=== PATIENT | male | born 1950 | race Caucasian/White ===

== ENCOUNTER → 2016-08-27 | Outpatient (CLI) | payer MEDICARE ==
--- NOTE | 2016-08-27 09:41 | US ---
EXAMINATION TYPE: US carotid duplex BILAT DATE OF EXAM: 08/27/2016 8:37 AM COMPARISON: NONE CLINICAL HISTORY: I10 htn. EXAM MEASUREMENTS: RIGHT: Peak Systolic Velocity (PSV) cm/sec ----- Right CCA: 88.6 ----- Right ICA: 110.4 ----- Right ECA: 171.7 ICA/CCA ratio: 1.2 RIGHT: End Diastole cm/sec ----- Right CCA: 18.8 ----- Right ICA: 24.6 ----- Right ECA: 27.6 LEFT: Peak Systolic Velocity (PSV) cm/sec ----- Left CCA: 95.1 ----- Left ICA: 129.1 ----- Left ECA: 199.6 ICA/CCA ratio: 1.4 LEFT: End Diastole cm/sec ----- Left CCA: 20.8 ----- Left ICA: 14.4 ----- Left ECA: 27.6 VERTEBRALS (direction of flow): Right Vertebral: Antegrade Left Vertebral: Antegrade Moderate plaque noted bilateral bifurcations. Tortuous vessels noted. Slightly increased velocities l eft ICA. Increased velocities bilateral ECAs IMPRESSION: 1. Slightly elevated velocities within the left internal carotid artery suggesting stenosis of 50-69% . 2. No evidence of hemodynamically significant stenosis within the right carotid system.
--- NOTE | 2016-08-27 11:44 | ECHOS ---
DATE OF SERVICE: 08/27/2016 AGE: 66Y SEX: M HT: 69" WT: 260 lbs. Protocol [place]: X Others: Stress Echo Stage: 2 Dur. of Exercise: 4:15 *Heart Rate Blood Pressure *Rest: 72 Rest: 141/45 * *Max. Achieved: 130 Maximum BP: 234/73 85% PMHR: 130 100% PMHR: 153 *METS: 6.0 INDICATIONS: Hypertension. MEDICATIONS: Labetalol, losartan, amlodipine. Baseline EKG revealed normal sinus rhythm without significant ST-T changes. Patient walked for 4 minutes, 15 seconds, developed fatigue, shortness of breath and stress test was stopped. His maximal heart rate was about 132 beats per minute, which is 85% of predicted maximum. By the time the echo images were obtained, heart rate came to 122 beats per minute. Rare PVCs were noted. EKG did not reveal any ST segment changes to indicate ischemia and patient did not have angina. By EKG criteria, this is a negative stress test with limited exercise capacity. By the time echo images were obtained, heart rate was down to 122 beats per minute. However, there is no evidence to suggest any ischemia. There was good augmentation of left ventricular wall motion and wall thickening of all segments suggesting that there is no stress-induced ischemia on this study. FINAL IMPRESSION: 1. By EKG criteria, this is a negative stress test with limited exercise capacity. Patient did not have any angina. 2. By the time stress echo images were obtained, heart rate was down to 122 beats per minute; however, there is no evidence to suggest any ischemia on this stress echocardiogram.
== END | disposition home or self-care (01) ==
LOC: RADUSMAIN 08:09 → MERGE 08:20
PROVIDERS: ATTEND Family Medicine
DX: I10 Essential (primary) hypertension (principal)
CPT/HCPCS: 93017; 93350; 93880

== ENCOUNTER → 2018-04-10 | Outpatient (CLI) | payer MEDICARE ==
--- NOTE | 2018-04-10 11:45 | XR ---
EXAMINATION TYPE: XR Hip Bilateral Complete DATE OF EXAM: 04/10/2018 CLINICAL HISTORY: Bilateral hip pain. TECHNIQUE: AP and frogleg views of the bilateral hips are obtained. COMPARISON: None. FINDINGS: There is no acute fracture/dislocation evident in either hip. Symmetric mild axial joint s pace loss with mild to moderate acetabular spurring is present. Some spurring from greater trochante r level is present bilaterally. The overlying soft tissue appears unremarkable. Overlying zipper is p artially imaged. IMPRESSION: As above.
== END | disposition home or self-care (01) ==
LOC: RADXRMAIN 11:21
PROVIDERS: ATTEND Family Medicine
DX: M77.8 Other enthesopathies, not elsewhere classified (principal)
CPT/HCPCS: 73521

== ENCOUNTER 2018-07-12 18:56 | Emergency (ER) | payer MEDICARE ==
[2018-07-12] MEDS ORDERED: ALBUTEROL NEBULIZED 2.5 MG/3 ML INHALATION STA (19:22)
[2018-07-12] MEDS ORDERED: IPRATROPIUM 0.5 MG/2.5 ML NEBU INHALATION STA (19:22)
[2018-07-12] MEDS ORDERED: methylPREDNISolone SOD SUCCI 125 MG/2 ML VIAL IV STA (19:22)
--- NOTE | 2018-07-12 19:28 | ED ---
General Adult HPI - General Source: patient, RN notes reviewed Mode of arrival: ambulatory Limitations: no limitations <He Jones - Last Filed: 07/12/18 19:54> <He Harper - Last Filed: 07/12/18 22:16> - General Chief complaint: Shortness of Breath Stated complaint: Diff Breathing Time Seen by Provider: 07/12/18 19:00 - History of Present Illness Initial comments: This is a 68-year-old male presents emergency Department stating he has been having shortness of breath since earlier today per patient states the vacuum ceiling cleaner up a lot of dust in today earlier any brief a lot of and ever since then he's been having a hard time breathing. Patient states she can hear himself wheezing. Patient states he has no history of wheezing or COPD or congestive heart. Patient states 2 months ago he had bronchitis but he has been fine ever since took antibiotics. Patient denies any fever chills per patient denies palpitations. Patient denies any chest pain. Patient denies any abdominal pain. Patient denies any lightheadedness or dizziness. (He Jones) - Related Data Home Medications Medication Instructions Recorded Confirmed Dextroamphetamine/Amphetamine 30 mg PO DAILY PRN 07/12/18 07/12/18 [Adderall] Labetalol [Trandate] 100 mg PO BID 07/12/18 07/12/18 Losartan/Hydrochlorothiazide 1 tab PO DAILY 07/12/18 07/12/18 [Losartan-Hctz 100-25 mg Tab] amLODIPine [Norvasc] 5 mg PO DAILY 07/12/18 07/12/18 Allergies Allergy/AdvReac Type Severity Reaction Status Date / Time No Known Allergies Allergy Verified 07/12/18 19:40 Review of Systems ROS Other: All systems not noted in ROS Statement are negative. <He Jones - Last Filed: 07/12/18 19:54> ROS Other: All systems not noted in ROS Statement are negative. <He Harper - Last Filed: 07/12/18 22:16> ROS Statement: Those systems with pertinent positive or pertinent negative responses have been documented in the HPI. Past Medical History Past Medical History: Hypertension History of Any Multi-Drug Resistant Organisms: None Reported Past Surgical History: Prostate Surgery Additional Past Surgical History / Comment(s): knee replacement Past Psychological History: No Psychological Hx Reported Smoking Status: Never smoker Past Alcohol Use History: Occasional Past Drug Use History: Marijuana <He Jones - Last Filed: 07/12/18 19:54> General Exam Limitations: no limitations <He Jones - Last Filed: 07/12/18 19:54> General appearance: alert, in no apparent distress Head exam: Present: atraumatic, normocephalic, normal inspection Eye exam: Present: normal appearance, PERRL, EOMI. Absent: scleral icterus, conjunctival injection, periorbital swelling ENT exam: Present: normal exam, mucous membranes moist Neck exam: Present: normal inspection. Absent: tenderness, meningismus, lymphadenopathy Respiratory exam: Present: respiratory distress, wheezes. Absent: rales, rhonchi, stridor Cardiovascular Exam: Present: regular rate, normal rhythm, normal heart sounds. Absent: systolic murmur, diastolic murmur, rubs, gallop, clicks GI/Abdominal exam: Present: soft, normal bowel sounds. Absent: distended, tenderness, guarding, rebound, rigid Extremities exam: Present: normal inspection, full ROM, normal capillary refill. Absent: tenderness, pedal edema, joint swelling, calf tenderness Back exam: Present: normal inspection Neurological exam: Present: alert, oriented X3, CN II-XII intact Psychiatric exam: Present: normal affect, normal mood Skin exam: Present: warm, dry, intact, normal color. Absent: rash <He Harper - Last Filed: 07/12/18 22:16> - General Exam Comments Initial Comments: GENERAL: Patient is well-developed and well-nourished. Patient is nontoxic and well- hydrated and is in mild distress. ENT: Neck is soft and supple. No significant lymphadenopathy is noted. Oropharynx is clear. Moist mucous membranes. EYES: The sclera were anicteric and conjunctiva were pink and moist. Extraocular movements were intact and pupils were equal round and reactive to light. Eyelids were unremarkable. PULMONARY: Patient has expiratory wheezing. CARDIOVASCULAR: There is a regular rate and rhythm without any murmurs gallops or rubs. ABDOMEN: Soft and nontender with normal bowel sounds. SKIN: Skin is clear with no lesions or rashes and otherwise unremarkable. NEUROLOGIC: Patient is alert and oriented x3. Cranial nerves II through XII are grossly intact. Motor and sensory are also intact. Normal speech, volume and content. Symmetrical smile. MUSCULOSKELETAL: Normal extremities with adequate strength and full range of motion. No lower extremity swelling or edema. No calf tenderness. LYMPHATICS: No significant lymphadenopathy is noted PSYCHIATRIC: Normal psychiatric evaluation. (He Jones) Course Vital Signs 07/12/18 07/12/18 07/12/18 19:01 19:18 19:58 Temperature 98.5 F Pulse Rate 91 92 Respiratory 18 20 Rate Blood Pressure 186/76 O2 Sat by Pulse 94 L Oximetry 07/12/18 07/12/18 07/12/18 20:15 21:18 21:41 Temperature 98.3 F Pulse Rate 92 94 87 Respiratory 18 Rate Blood Pressure 160/87 O2 Sat by Pulse 98 Oximetry Medical Decision Making - Lab Data Result diagrams: 07/12/18 19:33 <He Jones - Last Filed: 07/12/18 19:54> - Lab Data Result diagrams: 07/12/18 19:33 07/12/18 19:33 - Radiology Data Radiology results: report reviewed (CXR is negative for acute disease), image reviewed <He Harper - Last Filed: 07/12/18 22:16> - Medical Decision Making EKG shows sinus rhythm at 84 bpm PA interval is 214 QRS is 94 QT interval [address] Harper take over the care of this patient at 8 PM (He Jones) 68 male to the ED for bronchospasm cutrrently in no distress and would like to be discharged home. (He Harper) - Lab Data Lab Results 07/12/18 07/12/18 07/12/18 Range/Units 19:33 19:33 19:33 WBC 7.0 (3.8-10.6) k/uL RBC 4.94 (4.30-5.90) m/uL Hgb 13.7 (13.0-17.5) gm/dL Hct 42.1 (39.0-53.0) % MCV 85.2 (80.0-100.0) fL MCH 27.8 (25.0-35.0) pg MCHC 32.6 (31.0-37.0) g/dL RDW 14.5 (11.5-15.5) % Plt Count 243 (150-450) k/uL Neutrophils % 59 % Lymphocytes % 20 % Monocytes % 6 % Eosinophils % 12 % Basophils % 1 % Neutrophils # 4.1 (1.3-7.7) k/uL Lymphocytes # 1.4 (1.0-4.8) k/uL Monocytes # 0.4 (0-1.0) k/uL Eosinophils # 0.9 H (0-0.7) k/uL Basophils # 0.1 (0-0.2) k/uL PT 9.8 (9.0-12.0) sec INR 0.9 (<1.2) APTT 26.8 (22.0-30.0) sec Sodium 139 (137-145) mmol/L Potassium 4.0 (3.5-5.1) mmol/L Chloride 100 (98-107) mmol/L Carbon Dioxide 29 (22-30) mmol/L Anion Gap 10 mmol/L BUN 15 (9-20) mg/dL Creatinine 0.86 (0.66-1.25) mg/dL Est GFR (CKD-EPI)AfAm >90 (>60 ml/min/1.73 sqM) Est GFR (CKD-EPI)NonAf 89 (>60 ml/min/1.73 sqM) Glucose 108 H (74-99) mg/dL Calcium 9.8 (8.4-10.2) mg/dL Magnesium 2.2 (1.6-2.3) mg/dL Total Bilirubin 0.7 (0.2-1.3) mg/dL AST 28 (17-59) U/L ALT 43 (21-72) U/L Alkaline Phosphatase 88 (38-126) U/L Troponin I (0.000-0.034) ng/mL Total Protein 7.5 (6.3-8.2) g/dL Albumin 4.7 (3.5-5.0) g/dL 07/12/18 Range/Units 19:33 WBC (3.8-10.6) k/uL RBC (4.30-5.90) m/uL Hgb (13.0-17.5) gm/dL Hct (39.0-53.0) % MCV (80.0-100.0) fL MCH (25.0-35.0) pg MCHC (31.0-37.0) g/dL RDW (11.5-15.5) % Plt Count (150-450) k/uL Neutrophils % % Lymphocytes % % Monocytes % % Eosinophils % % Basophils % % Neutrophils # (1.3-7.7) k/uL Lymphocytes # (1.0-4.8) k/uL Monocytes # (0-1.0) k/uL Eosinophils # (0-0.7) k/uL Basophils # (0-0.2) k/uL PT (9.0-12.0) sec INR (<1.2) APTT (22.0-30.0) sec Sodium (137-145) mmol/L Potassium (3.5-5.1) mmol/L Chloride (98-107) mmol/L Carbon Dioxide (22-30) mmol/L Anion Gap mmol/L BUN (9-20) mg/dL Creatinine (0.66-1.25) mg/dL Est GFR (CKD-EPI)AfAm (>60 ml/min/1.73 sqM) Est GFR (CKD-EPI)NonAf (>60 ml/min/1.73 sqM) Glucose (74-99) mg/dL Calcium (8.4-10.2) mg/dL Magnesium (1.6-2.3) mg/dL Total Bilirubin (0.2-1.3) mg/dL AST (17-59) U/L ALT (21-72) U/L Alkaline Phosphatase (38-126) U/L Troponin I <0.012 (0.000-0.034) ng/mL Total Protein (6.3-8.2) g/dL Albumin (3.5-5.0) g/dL Disposition <He Jones - Last Filed: 07/12/18 19:54> Is patient prescribed a controlled substance at d/c from ED?: No <He Harper - Last Filed: 07/12/18 22:16> Clinical Impression: Acute bronchospasm Disposition: HOME SELF-CARE Condition: Good Instructions (If sedation given, give patient instructions): Bronchospasm (ED) Referrals: Brandon Linares DO [Primary Care Provider] - 1-2 days
[2018-07-12 19:46] LABS: Basophils # (A) 0.1 k/uL (0-0.2); Basophils % (A) 1 %; Eosinophils # (A) 0.9 k/uL (0-0.7); Eosinophils % (A) 12 %; HCT 42.1 % (39.0-53.0); HGB 13.7 gm/dL (13.0-17.5); Lymphocytes # (A) 1.4 k/uL (1.0-4.8); Lymphocytes % (A) 20 %; MCH 27.8 pg (25.0-35.0); MCHC 32.6 g/dL (31.0-37.0); MCV 85.2 fL (80.0-100.0); Mean Platelet Volume 6.9; Monocytes # (A) 0.4 k/uL (0-1.0); Monocytes % (A) 6 %; Neutrophils # (A) 4.1 k/uL (1.3-7.7); Neutrophils % (A) 59 %; Platelet Count 243 k/uL (150-450); RBC 4.94 m/uL (4.30-5.90); RDW 14.5 % (11.5-15.5)
[2018-07-12 19:55] LABS: ALT 43 U/L (21-72); AST 28 U/L (17-59); Albumin 4.7 g/dL (3.5-5.0); Alkaline Phosphatase 88 U/L (38-126); Anion Gap 10 mmol/L; Blood Urea Nitrogen 15 mg/dL (9-20); Calcium 9.8 mg/dL (8.4-10.2); Carbon Dioxide 29 mmol/L (22-30); Chloride 100 mmol/L (98-107); Glucose 108 mg/dL (74-99); Magnesium 2.2 mg/dL (1.6-2.3); Sodium 139 mmol/L (137-145); Total Bilirubin 0.7 mg/dL (0.2-1.3); Total Protein 7.5 g/dL (6.3-8.2)
[2018-07-12 19:56] LABS: INR 0.9 (<1.2); Partial Thromboplastin Time 26.8 sec (22.0-30.0); Prothrombin Time 9.8 sec (9.0-12.0)
--- NOTE | 2018-07-12 20:33 | XR ---
EXAMINATION TYPE: XR chest 2V DATE OF EXAM: 07/12/2018 COMPARISON: NONE HISTORY: Short of breath TECHNIQUE: Frontal and lateral views of the chest are obtained. FINDINGS: Heart and mediastinum are normal. Lungs are clear of consolidation. There is slight blunti ng of left costophrenic angle. There are no hilar masses. Bony thorax is intact. IMPRESSION: There is some linear density at the left costophrenic angle consistent with subsegmental atelectasis and pleural reaction.
[2018-07-12] MEDS ORDERED: IPRATROPIUM-ALBUTEROL 3 ML NEB INHALATION STA (20:58)
[2018-07-12 21:42] VITALS: BP 160/87; PULSE 87; RESP 18; TEMP 98.3
== END 2018-07-12 21:42 | disposition home or self-care (01) ==
LOC: EC 18:56
DX: J98.01 Acute bronchospasm (principal); I10 Essential (primary) hypertension; Z79.899 Other long term (current) drug therapy; Z96.659 Presence of unspecified artificial knee joint
CPT/HCPCS: 36415; 71046; 80053; 83735; 84484; 85025; 85610; 85730; 93005; 94640; 96374; 99285

== ENCOUNTER → 2019-05-24 | Outpatient (CLI) | payer MEDICARE ==
--- NOTE | 2019-05-24 12:10 | XR ---
EXAMINATION TYPE: XR lumbar spine 2 or 3V DATE OF EXAM: 05/24/2019 CLINICAL HISTORY: Lumbar pain and sciatica TECHNIQUE: Frontal and lateral images of the lumbar spine are obtained. COMPARISON: None FINDINGS: There are 5 lumbar type vertebral bodies assume bilateral accessory L1 ribs. There is levo convex scoliosis centered at L3 level. There is slight grade 1 anterolisthesis L3 on L4 and grade 1 r etrolisthesis L4 on L5. Moderate to advanced disc space narrowing with moderate anterior spurring L4- L5 level. Advanced disc space narrowing and anterior spurring L5-S1 level. Moderate right lateral spu rring L3 level. Oblique images suboptimal due to underlying scoliosis. Vascular opacification overlyi ng abdominal aorta is present. Facet arthropathy mid to lower lumbar spine is noted. IMPRESSION: As above
== END | disposition home or self-care (01) ==
LOC: RADXRMAIN 11:01
PROVIDERS: ATTEND Family Medicine
DX: M99.73 Connective tissue and disc stenosis of intervertebral foramina of lumbar region (principal); M43.16 Spondylolisthesis, lumbar region; M46.96 Unspecified inflammatory spondylopathy, lumbar region; M41.86 Other forms of scoliosis, lumbar region
CPT/HCPCS: 72100

== ENCOUNTER → 2019-11-30 | Outpatient (CLI) | payer MEDICARE ==
--- NOTE | 2019-11-30 14:23 | US ---
EXAMINATION TYPE: US venous doppler duplex LE DATE OF EXAM: 11/30/2019 1:27 PM COMPARISON: NONE CLINICAL HISTORY: PAD I73.9. Bilateral ankle swelling is noted. Patient stated right foot coldness, b ut feels warm and equal to left foot temperature. SIDE PERFORMED: Bilateral TECHNIQUE: The lower extremity deep venous system is examined utilizing real time linear array sonog david with graded compression, doppler sonography and color-flow sonography. VESSELS IMAGED: Common Femoral Vein Deep Femoral Vein Greater Saphenous Vein * Femoral Vein Popliteal Vein Small Saphenous Vein * Proximal Calf Veins (* superficial vessels) Right Leg: Negative for DVT Left Leg: Negative for DVT. Left Popliteal fossa complex cyst is noted = 50 x 3.0 x 3.7cm. IMPRESSION: 1. No diagnostic evidence of DVT. 2. 5 cm popliteal fossa mass most likely related to a cyst. Correlation with MRI could BE obtained fo r confirmation
== END | disposition home or self-care (01) ==
LOC: RADUSWWP 12:48
PROVIDERS: ATTEND Family Medicine
DX: R22.43 Localized swelling, mass and lump, lower limb, bilateral (principal)
CPT/HCPCS: 93922; 93970

== ENCOUNTER → 2020-01-11 | Outpatient (CLI) | payer MEDICARE ==
[2020-01-11 10:23] LABS: HCT 41.9 % (39.0-53.0); HGB 13.7 gm/dL (13.0-17.5); MCH 28.2 pg (25.0-35.0); MCHC 32.7 g/dL (31.0-37.0); MCV 86.1 fL (80.0-100.0); Mean Platelet Volume 7.1; Platelet Count 235 k/uL (150-450); RBC 4.86 m/uL (4.30-5.90); RDW 13.9 % (11.5-15.5); WBC 5.7 k/uL (3.8-10.6)
[2020-01-11 10:29] LABS: Appearance,Urine Clear (Clear); Bilirubin,Urine Negative (Negative); Blood,Urine Negative (Negative); Color,Urine Yellow; Glucose,Urine (UA) Negative (Negative); Ketones,Urine Negative (Negative); Leukocyte Esterase,Urine Negative (Negative); Nitrite,Urine Negative (Negative); Protein,Urine Negative (Negative); Specific Gravity,Urine 1.016 (1.001-1.035); Urobilinogen,Urine <2.0 mg/dL (<2.0)
[2020-01-11 17:52] LABS: INR 0.98 (0.90-1.11); Partial Thromboplastin Time 30.3 sec (24.7-29.9); Prothrombin Time 10.5 sec (9.9-11.9)
[2020-01-11 18:33] LABS: African American GFR (CKD) 99.9 (60.0-200.0); Albumin 4.7 g/dL (3.80-4.90); Albumin/Globulin Ratio 2.61 (1.60-3.17); Anion Gap 7.8 mmol/L (4.00-12.00); BUN/Creat Ratio 16.67 Ratio (12.00-20.00); Calcium 9.5 mg/dL (8.7-10.3); Carbon Dioxide 26.2 mmol/L (21.6-31.8); Globulin 1.8 g/dL (1.6-3.3); Non-African American GFR(CKD) 86.2 (60.0-200.0); Potassium 4.3 mmol/L (3.5-5.5); Total Bilirubin 0.7 mg/dL (0.3-1.2); Total Protein 6.5 g/dL (6.2-8.2)
== END | disposition home or self-care (01) ==
LOC: LABWHC1 09:50
PROVIDERS: ATTEND Orthopaedic Surgery
DX: Z01.818 Encounter for other preprocedural examination (principal); Z01.812 Encounter for preprocedural laboratory examination; Z79.01 Long term (current) use of anticoagulants; M17.12 Unilateral primary osteoarthritis, left knee
CPT/HCPCS: 36415; 80053; 81003; 85027; 85610; 85730; 87070; 93005

== ENCOUNTER → 2020-02-04 | Outpatient (CLI) | payer MEDICARE | END | disposition home or self-care (01) | LOC: LABWHC1 13:05 | PROVIDERS: ATTEND Family Medicine | DX: Z20.828 Contact with and (suspected) exposure to other viral communicable diseases (principal) | CPT/HCPCS: U0003; C9803 ==

== ENCOUNTER → 2020-06-16 | Outpatient (CLI) | payer MEDICARE ==
[2020-06-16 11:46] LABS: Appearance,Urine Clear (Clear); Bilirubin,Urine Negative (Negative); Blood,Urine Negative (Negative); Color,Urine Yellow; Glucose,Urine (UA) Negative (Negative); HCT 41.5 % (39.0-53.0); HGB 13.9 gm/dL (13.0-17.5); Ketones,Urine Negative (Negative); Leukocyte Esterase,Urine Negative (Negative); MCH 28.4 pg (25.0-35.0); MCHC 33.5 g/dL (31.0-37.0); MCV 84.8 fL (80.0-100.0); Mean Platelet Volume 7.1; Nitrite,Urine Negative (Negative); Platelet Count 210 k/uL (150-450); Protein,Urine Negative (Negative); RBC 4.89 m/uL (4.30-5.90); RDW 14.3 % (11.5-15.5); Specific Gravity,Urine 1.019 (1.001-1.035); Urobilinogen,Urine <2.0 mg/dL (<2.0); WBC 5.4 k/uL (3.8-10.6)
[2020-06-16 11:52] LABS: Partial Thromboplastin Time 25.6 sec (22.0-30.0); Prothrombin Time 10.3 sec (9.0-12.0)
[2020-06-16 11:54] LABS: ALT 25 U/L (4-49); AST 23 U/L (17-59); African American GFR (CKD) >90 (>60 ml/min/1.73 sqM); Albumin 4.6 g/dL (3.5-5.0); Alkaline Phosphatase 75 U/L (38-126); Anion Gap 11 mmol/L; Blood Urea Nitrogen 18 mg/dL (9-20); Calcium 9.5 mg/dL (8.4-10.2); Carbon Dioxide 27 mmol/L (22-30); Chloride 102 mmol/L (98-107); Glucose 110 mg/dL (74-99); Non-African American GFR(CKD) >90 (>60 ml/min/1.73 sqM); Sodium 140 mmol/L (137-145); Total Bilirubin 0.6 mg/dL (0.2-1.3); Total Protein 7.1 g/dL (6.3-8.2)
== END | disposition home or self-care (01) ==
LOC: LABPAT 10:42
PROVIDERS: ATTEND Orthopaedic Surgery
DX: Z01.818 Encounter for other preprocedural examination (principal); Z01.812 Encounter for preprocedural laboratory examination; M17.12 Unilateral primary osteoarthritis, left knee
CPT/HCPCS: 36415; 80053; 81003; 85027; 85610; 85730; 87070

== ENCOUNTER 2020-07-08 05:33 | Day surgery (SDC) | payer MEDICARE ==
[2020-07-03 11:22] VITALS: BMI 36.5
[~2020-07-08 05:33] MED LIST: ACETAMINOPHEN TAB 500 MG TAB PO PRN; DEXAMETHASONE SOD PHOSPHATE 4 MG/ML 1 ML VIAL IV ONE; GABAPENTIN 300 MG CAP PO PRN; LACTATED RINGERS 1,000 ML IV SCH; LIDOCAINE 1% (10MG/ML) FOR IV START INTRADERMA PRN; MELOXICAM 7.5 MG TAB PO PRN; MIDAZOLAM 2 MG/2 ML VIAL IV PRN; ONDANSETRON 4 MG/2 ML VIAL IVP ONE; ROPIVACAINE/EPI/CLONIDINE/KET 50 ML SYRINGE MISCELLANE PRN; TRANEXAMIC ACID 1,000 MG in SODIUM CHLORIDE 0.9% 100 ML IVPB PRN
[2020-07-08] MEDS ORDERED: MIDAZOLAM 2 MG/2 ML VIAL IV ONE (06:44)
[2020-07-08] MEDS ORDERED: HYDROmorphone 0.5 MG/0.5 ML SYRINGE IVP PRN ×3 (07:00→07:01)
[2020-07-08] MEDS ORDERED: fentaNYL (PF) 50 MCG/ML 2 ML AMP IVP PRN (07:00)
[2020-07-08] MEDS ORDERED: SUCCINYLCHOLINE CHLORIDE 100 MG/5 ML SYR IV ONE (07:01)
[2020-07-08] MEDS ORDERED: ONDANSETRON 4 MG/2 ML VIAL IVP PRN (07:01)
[2020-07-08] MEDS ORDERED: ROPIVACAINE 5 MG/ML 30 ML VIAL ONE (07:01)
[2020-07-08] MEDS ORDERED: HYDROmorphone (PF) 1 MG/ML ONE (07:01)
[2020-07-08] MEDS ORDERED: SODIUM CHLORIDE 0.9% 100 ML BAG ONE (07:01)
[2020-07-08] MEDS ORDERED: NALOXONE 0.4 MG/ML 1 ML VIAL IV PRN ×2 (07:01→08:16)
[2020-07-08] MEDS ORDERED: DEXAMETHASONE SOD PHOSPHATE 4 MG/ML 1 ML VIAL ONE (07:01)
[2020-07-08] MEDS ORDERED: PROPOFOL 10 MG/ML 20 ML VIAL IV ONE (07:01)
[2020-07-08] MEDS ORDERED: GLYCOPYRROLATE 0.2 MG/ML 2 ML VIAL ONE (07:01)
[2020-07-08] MEDS ORDERED: ROCURONIUM 10 MG/ML (5 ML VIAL) IV ONE (07:01)
[2020-07-08] MEDS ORDERED: MIDAZOLAM 2 MG/2 ML VIAL ONE (07:01)
[2020-07-08] MEDS ORDERED: NEOSTIGMINE 1 MG/ML 10 ML VIAL ONE (07:01)
[2020-07-08] MEDS ORDERED: LIDOCAINE 1% INJ 10MG/ML (20 ML MDV) ONE (07:01)
[2020-07-08] MEDS ORDERED: HYDROmorphone 0.2 MG/1 ML SYRINGE IVP PRN (07:01)
[2020-07-08] MEDS ORDERED: ePHEDrine SULFATE/0.9% NACL/PF 50 MG/5 ML SYRINGE IV ONE (07:01)
[2020-07-08] MEDS ORDERED: fentaNYL (PF) 50 MCG/ML 2 ML AMP ONE (07:01)
[2020-07-08] MEDS ORDERED: TRANEXAMIC ACID 1,000 MG/10 ML VIAL ONE (07:01)
[2020-07-08] MEDS ORDERED: HYDROcodone/APAP 7.5-325MG 1 EACH TAB PO PRN ×2 (07:02)
[2020-07-08] MEDS ORDERED: ceFAZolin 3,000 MG in SODIUM CHLORIDE 0.9% IRRIGATIO 3,000 ML IRRIGATION ONE (07:06)
[2020-07-08] MEDS ORDERED: SODIUM CHLORIDE 0.9% 1,000 ML IV SCH (07:15)
--- NOTE | 2020-07-08 08:15 | P.ANPRN ---
Procedure Note - Anesthesia - Nerve Block Performed Left Adductor Canal Infusion Time Out Performed: Yes Date of Procedure: 07/08/20 Procedure Start Time: 07:43 Procedure Stop Time: 07:55 Location of Patient: PreOp Indication: Acute Post-Operative Pain, Requested by Surgeon Sedation Type: Sedate with meaningful contact maintained Preparation: Sterile Prep, Sterile Dressing Position: Supine Catheter: Indwelling Needle Types: On-Q Needle Gauge: 18 Ultrasound used to visualize needle placement: Yes Ultrasound used to observe medication spread: Yes Injectate: 0.5% Ropivacaine (see comment for volume) (20 ml) Blood Aspirated: No Pain Paresthesia on Injection Noted: No Resistance on Injection: Normal Image Stored and Saved: Yes Events: Uneventful and Well Tolerated Left iPack Date of Procedure: 07/08/20 Procedure Start Time: :55 Procedure Stop Time: 07:58 Location of Patient: PreOp Indication: Acute Post-Operative Pain, Requested by Surgeon Sedation Type: Sedate with meaningful contact maintained Preparation: Sterile Prep, Sterile Dressing Position: Right Lateral Catheter: None Needle Types: Pajunk Needle Gauge: 20 Ultrasound used to visualize needle placement: Yes Ultrasound used to observe medication spread: Yes Injectate: 0.5% Ropivacaine (see comment for volume) (15 ml + decadron 4 mg) Blood Aspirated: No Pain Paresthesia on Injection Noted: No Resistance on Injection: Normal Image Stored and Saved: Yes Events: Uneventful and Well Tolerated
[2020-07-08] MEDS ORDERED: ROPIVACAINE 0.2%-NS ON-Q PUMP 1,090 MG, EMPTY PAIN BALL 1 EACH MISCELLANE PRN (08:16)
--- NOTE | 2020-07-08 08:45 | P.OP ---
Date of Procedure: 07/08/20 Preoperative Diagnosis: Severe osteoarthritis left knee Postoperative Diagnosis: Severe osteoarthritis left knee Procedure(s) Performed: Left total knee arthroplasty Implants: [employer] Journey II CR Oxinium cruciate retaining femoral component size 6, left [employer] Journey nonporous tibial baseplate size 6, left [employer] Journey II, XLPE CR articular insert, size 9 mm, Size 5-6, left [employer] Laura II resurfacing patellar component, oval, 35 mm All components were cemented using Palacos R bone cement The articulation is Oxinium on polyethylene Anesthesia: GETA Surgeon: Dat Nunez Furnace Stock Inspector #1: Laurie Watkins Estimated Blood Loss (ml): 30 Pathology: other (Bone and cartilage) Condition: stable Disposition: PACU Indications for Procedure: After failure of conservative treatment we discussed the surgical and nonsurgical treatment options at length. Patient wishes to proceed with a total knee arthroplasty. Complications specific to this procedure were discussed at [facility], including but not limited to infection, bleeding, stiffness, and nerve injury. Covid-19 was also discussed at length with the patient, and they are aware of the current policies and procedures. The patient was given the option of delaying surgery, but they elect to proceed knowing these risks. Patient is aware of all these complications and informed consent was obtained Operative Findings: The operative findings are consistent with severe osteoarthritis of the left knee Description of Procedure: Patient was seen in the preoperative area and the consent was reviewed and the operative site was marked with a skin marker. The patient verified the procedure and the operative site. An adductor canal pain catheter was placed by anesthesia in the preoperative area. The patient was then brought to the operating room and given preoperative antibiotics intravenously. A gram of transexamic acid was given intravenously. A general anesthetic was administered by the anesthesia department. A tourniquet was placed on the upper thigh and the lower extremity was prepped with chlorhexidine and draped in usual sterile fashion. A universal timeout was then performed which confirmed the patient's name, surgical site, ALLERGIES, and consent. The lower extremity was then exsanguinated and tourniquet was inflated to 250 mmHg. A standard anterior midline approach to the knee was performed. The skin and subcutaneous tissue were sharply dissected down to the patellar tendon. A medial parapatellar arthrotomy was then performed. The knee was then extended, the patellar was everted, and the knee was again flexed. The infra-patellar fat pad was removed in order to enhance exposure. The anterior horns of both menisci were excised, and a release was performed to the posterior medial aspect of the knee. On gross visual inspection, there was complete loss of articular cartilage in the medial and patellofemoral joint spaces. There was also significant cartilage damage in the lateral compartment. There were multiple periarticular osteophytes globally about the knee which were then removed with a Ronguer. The femoral canal was then opened with the 9.5 mm intramedullary drill. The 8 mm intramedullary iván was then inserted into the femoral canal with the distal femoral cutting guide set for 5 of valgus. The distal femoral cutting block was then pinned in place. The intramedullary iván was then removed, and the distal femur was then cut. The cutting block was then removed and the cut was checked for symmetry. The resected bone was then measured to confirm the appropriate distal femoral resection. Next, the sizing guide was then placed and set for 3 external rotation based off of the epicondylar axis and Whitesides line. Pins were then placed and the drill holes, and the femur was sized with the sizing stylus. The pins were then removed, and the sizing guide was then removed. The spikes of the femoral block was then placed into the predrilled holes, and malleted into place. Two 45 mm pins were then placed into the fixation holes on the cutting block. An sree wing was then used to ensure there would be no notching with the anterior cut. The anterior condyles were cut without notching. The anterior chord cut was then performed, followed by the posterior cut, posterior chamfer cut, and the anterior chamfer cut. The collateral ligaments were protected during the entire process. The cutting block was then removed. Any remaining bone and osteophytes were removed from the femur with a Rominger. The femoral canal was plugged with autologous bone. Attention was then directed to the tibia. The remaining ACL was removed with a Ronguer, and the tibia was then gently subluxed forward with a large bent knee retractor. Any remaining menisci were excised. The posterior lateral corner was cauterized in order to coagulate the lateral geniculate artery. The extra medullary tibial cutting guide was then placed, set for the appropriate rotation, slope, and depth of resection. The proximal tibia cutting guide was then pinned in place. Proximal tibia was then cut and sized. The femoral trial was placed. A narrow saw blade was then used to remove the anterior intracondylar femoral bone. The CR notch trial was then placed. The tibial trial was placed with the appropriate-sized insert. The knee was able to fully extend and flex to 130 and was stable throughout all range of motion. The knee was then extended and the patella was everted. Patella was then measured, and then using an osteotomy guide, the patella was cut at the appropriate level. The patella was then measured and drilled and the patella trial was then placed. The knee was then taken through range of motion with the patella trial and the patella tracked normally using the no thumbs technique.. The knee was then extended patella trial was then removed and the patella was everted. Knee was then flexed and lug holes were drilled through the femoral trial and the femoral trial was then removed. The tibial was then re-exposed, and the tibial broach guide was then pinned in place after it was set for the appropriate rotation to allow for the most coverage without overhang. The tibia was then reamed and broached. The cut surfaces of bone were then irrigated with pulsatile lavage. The p osterior structures were injected with the ropivacaine solution. The knee was also irrigated with Irrisept solution. The components were then opened, the cement was mixed, and the components were then cemented in place. The cement was allowed to harden with the knee in full extension. While the cement was hardening, the remaining soft tissues were then injected with a ropivacaine solution, which consisted of 246.25 mg of ropivacaine, 0.5 mg of epinephrine, 30 mg of Toradol, 80 g of clonidine, and 48.45 mL of sterile water, for a total of 100 mL of fluid injected. After the cemented hardened. The tourniquet was released, and hemostasis was obtained. A second gram of transexamic acid was given intravenously. The knee was again irrigated. The knee was again taken through range of motion and found to be stable throughout all range of motion of 0-130, and the patella tracked normally. The fascia was then closed with 0 Vicryl followed by #2 strata fix suture. The subcutaneous tissue was closed with 3-0 Vicryl and 3-0 strata fix. Exofin glue was used for the skin and placed with the knee in flexion. After the glue had dried, and Optafoam silver impregnated dressing was applied. The patient was then transferred to recovery room in stable condition. The commercial loan assistant MAXIMO Mead was required due the complexity surgery and the need for a skilled delivery assistant. She assisted in positioning, draping, retraction, and closure of the wound.
[2020-07-08 08:59] VITALS: TEMP 97.6
[2020-07-08] MEDS ORDERED: LACTATED RINGERS 1,000 ML IV ONE ×2 (09:26)
[2020-07-08 09:49] VITALS: RESP 18
--- NOTE | 2020-07-08 09:54 | XR ---
EXAMINATION TYPE: XR knee limited LT DATE OF EXAM: 07/08/2020 COMPARISON: NONE HISTORY: 70-year-old male evaluation for postoperative abnormality and alignment TECHNIQUE: 2 views FINDINGS: Images show placement of left total knee arthroplasty. The distal femoral and proximal tibial compone nts of the prosthesis are well seated without periprostatic fracture. Alignment grossly anatomic. Ant erior soft tissue swelling with scattered soft tissue air as well as intra-articular air relating to recent operation. IMPRESSION: Uncomplicated postoperative appearance left total knee arthroplasty.
[2020-07-08 12:57] VITALS: BP 149/85; PULSE 67
== END 2020-07-08 13:57 | disposition home or self-care (01) ==
LOC: OR 05:33
PROVIDERS: ATTEND Orthopaedic Surgery
DX: M17.12 Unilateral primary osteoarthritis, left knee (principal); M25.762 Osteophyte, left knee; M21.062 Valgus deformity, not elsewhere classified, left knee; I10 Essential (primary) hypertension; E78.5 Hyperlipidemia, unspecified; H91.90 Unspecified hearing loss, unspecified ear; K08.89 Other specified disorders of teeth and supporting structures; K08.409 Partial loss of teeth, unspecified cause, unspecified class; Z79.899 Other long term (current) drug therapy; Z79.1 Long term (current) use of non-steroidal anti-inflammatories (NSAID); Z85.46 Personal history of malignant neoplasm of prostate; Z97.3 Presence of spectacles and contact lenses; Z90.79 Acquired absence of other genital organ(s); Z96.651 Presence of right artificial knee joint; Z87.891 Personal history of nicotine dependence; Z82.49 Family history of ischemic heart disease and other diseases of the circulatory system
CPT/HCPCS: 27447; 97110; 97161; 64999; 64448; 76942; 88300; 73560; C1713; C1776; J2250; J1100; J2710; J0690 ×2; J2405; J2001; J3010; J1170; J2795 ×2; J0330; J2704; 64447

== ENCOUNTER 2022-04-28 06:14 | Day surgery (SDC) | payer MEDICARE ==
[2022-04-28] MEDS ORDERED: SODIUM CHLORIDE 0.9% 1,000 ML in EMPTY BAG 1 BAG IV SCH (06:19)
[2022-04-28] MEDS ORDERED: ALPRAZolam 0.25 MG TAB PO PRN (06:19)
[2022-04-28] MEDS ORDERED: NITROGLYCERIN SL TABS 0.4 MG TAB SUBLINGUAL PRN (06:19)
[2022-04-28] MEDS ORDERED: ALPRAZolam 0.5 MG TAB PO PRN (06:19)
[2022-04-28 06:45] VITALS: RESP 18; TEMP 97.8
[2022-04-28] MEDS ORDERED: HEPARIN SODIUM,PORCINE 10,000 UNIT in SODIUM CHLORIDE 0.9% 1,000 ML IRRIGATION PRN (07:00)
[2022-04-28] MEDS ORDERED: HEPARIN SODIUM,PORCINE 2,500 UNIT in SODIUM CHLORIDE 0.9% 250 ML IRRIGATION PRN (07:00)
[2022-04-28] MEDS ORDERED: ASPIRIN 325 MG TAB PO ONE (07:00)
[2022-04-28] MEDS ORDERED: ATORVASTATIN 80 MG TAB PO ONE (07:00)
[2022-04-28] MEDS ORDERED: VERAPAMIL 2.5 MG/ML 2 ML AMP ONE (07:12)
[2022-04-28] MEDS ORDERED: HEPARIN SODIUM 1,000 UN/ML (10ML VL) ONE (07:25)
[2022-04-28] MEDS ORDERED: fentaNYL (PF) 50 MCG/ML 2 ML AMP ONE (07:25)
[2022-04-28] MEDS ORDERED: fentaNYL (PF) 50 MCG/1 ML VIAL IVP ONE (07:29)
[2022-04-28] MEDS ORDERED: LIDOCAINE 1% INJ 10MG/ML (5 ML VIAL-PF) SQ ONE (07:31)
[2022-04-28] MEDS ORDERED: VERAPAMIL SYRINGE (5 MG/10 ML) INTRAARTER ONE (07:34)
[2022-04-28] MEDS ORDERED: HEPARIN SODIUM 1,000 UN/ML (10ML VL) IV ONE (07:42)
[2022-04-28] MEDS ORDERED: IOPAMIDOL-370 125ML BTL INJ ONE (07:44)
[2022-04-28] MEDS ORDERED: RX INFO: IV CONTRAST WAS GIVEN 1 EACH MISC MISCELLANE PRN (07:53)
[2022-04-28] MEDS ORDERED: SODIUM CHLORIDE 0.9% 1,000 ML IV SCH (08:00)
--- NOTE | 2022-04-28 08:02 | P.CARDCATH ---
Date of Procedure: 04/28/22 Description of Procedure: Cardiac Catheterization: The patient is a 72-year-old male with a known history of hypertension, hyperlipidemia who has been complaining of exertional chest discomfort and had an abnormal MPI. Recommendations were made regarding cardiac catheterization, the risks and the complications were discussed with the patient who is in full understanding and agreement. Procedure Description: Patient was brought to cath lab technologist in fasting semi-sedated state after receiving Fentanyl and Benadryl achieiving moderate conscious sedated state. Using Xylocaine Anesthesia and Seldinger technique, a 6-Hong Konger sheath was introduced in the right radial artery . Subsequently, selective coronary angiography was performed using a 5-H[place] Konger 3.5 bend Michaelle catheter. Multiple views of the coronary artery including hemiaxial views were obtained. The right Michaelle catheter was used to cross the aortic valve and LVEDP was calculated. Following that, catheter and sheath were removed. Hemostasis was obtained with deployment of TR band . There was no immediate complication. Patient was returned to room in stable condition. Of note, the patient received a total of 5000 units of intravenous heparin as well as intra-arterial verapamil. Findings: Fluoroscopy: Severe calcifications of the coronary arteries was noted. Left main: This is a large size vessel, bifurcating into LAD and left circumflex, left main has no high-grade stenosis LAD: This is a large size vessel, reaching to the apex, giving rise to a proximal diagonal branch. The LAD proximally has a 90% stenosis after the takeoff of the first diagonal branch the mid diagonal branch has a 70% plaque. The mid and distal LAD has no high-grade stenosis. Left circumflex: This is a large nondominant vessel, giving rise to 2 obtuse marginal branch. The proximal left circumflex has a 95% stenosis. The first obtuse marginal branch has an 80% stenosis and there is another 60-70% plaque in the proximal second obtuse marginal branch. RCA: This is a large dominant vessel, bifurcating distally to PDA and PLV. The proximal RCA is subtotally occluded and benefits totally occluded in the midsegment with retrograde filling of the PDA and the PLV. The vessel is heavily calcified. Collaterals: His ipsilateral collaterals and contralateral collaterals to the distal RCA. Left Ventriculogram: Not performed Hemodynamics: There was no gradient across the aortic valve , LVEDP was 8-12 mmHg Conclusion: 1. Calcified coronary arteries 2. Severe triple-vessel coronary artery disease 3. Chronically occluded RCA 4. Normal LVEDP Recommendations: View of the findings and the anatomy I have recommended to proceed with evaluation for coronary artery bypass grafting, he will be evaluated by the surgical team. The findings and the recommendations were discussed with the patient and the family and they were in full understanding and agreement. Duration of sedation is 15 minutes.
[2022-04-28] MEDS ORDERED: hydroCHLOROthiazide 25 MG TAB PO SCH (09:00)
[2022-04-28] MEDS ORDERED: amLODIPine 5 MG TAB PO SCH (09:00)
[2022-04-28] MEDS ORDERED: ISOSORBIDE MONONITRATE ER 15 MG TAB PO SCH (09:00)
[2022-04-28] MEDS ORDERED: LABETALOL 100 MG TAB PO SCH (09:00)
[2022-04-28] MEDS ORDERED: NON FORMULARY DRUG (Aspirin [Adult Low Dose Aspirin Ec] 81 MG Tablet.Dr) PO SCH (09:00)
[2022-04-28] MEDS ORDERED: ATORVASTATIN 40 MG TAB PO SCH (09:00)
[2022-04-28] MEDS ORDERED: NON FORMULARY DRUG (Losartan Potassium [Cozaar] 100 MG Tablet) PO SCH (09:00)
--- NOTE | 2022-04-28 09:39 | US ---
EXAMINATION TYPE: US carotid duplex BILAT DATE OF EXAM: 04/28/2022 COMPARISON: 08/27/2016 CLINICAL HISTORY: 72-year-old male preop cardiac surgery. TECHNIQUE: Carotid duplex ultrasound examination. Indirect Doppler criteria was utilized. FINDINGS: EXAM MEASUREMENTS: RIGHT: Peak Systolic Velocity (PSV) cm/sec ----- Right CCA: 122.0 ----- Right ICA: 212.0 ----- Right ECA: 158.0 ICA/CCA ratio: 1.74 RIGHT: End Diastole cm/sec ----- Right CCA: 13.2 ----- Right ICA: 24.1 ----- Right ECA: 0.0 LEFT: Peak Systolic Velocity (PSV) cm/sec ----- Left CCA: 117.0 ----- Left ICA: 220.0 ----- Left ECA: 308.0 ICA/CCA ratio: 1.88 LEFT: End Diastole cm/sec ----- Left CCA: 13.0 ----- Left ICA: 31.0 ----- Left ECA: 0.0 VERTEBRALS (direction of flow): Right Vertebral: Antegrade Left Vertebral: Antegrade Rhythm: Normal DRILL PRESS TENDER NOTES: Moderate bilateral plaque causing elevated velocities bilaterally. IMPRESSION: Velocity elevations suggest moderate (50-69%) stenoses of the bilateral proximal ICAs. Criteria for Assigning % of Stenosis / Diameter reduction (Estimation based on the indirect measurements of the internal carotid artery velocities (ICA PSV). 1. Normal (no stenosis)=ICA PSV < 125 cm/s: ratio < 2.0: ICA EDV<40 cm/s. 2. Less than 50% stenosis=ICA PSV < 125 cm/s: ratio < 2.0: ICA EDV<40 cm/s. 3. 50 to 69% stenosis=ICA PSV of 125 to 230 cm/s: ration 2.0 ? 4.0: ICA EDV 40-100 cm/s. 4. Greater than 70% stenosis to near occlusion= ICA PSV > 230 cm/s: ratio > 4.0: ICA EDV > 100 cm/s. 5. Near occlusion= ICA PSV velocities may be low or undetectable: variable ratio and ICA EDV. 6. Total occlusion=unable to detect flow.
[2022-04-28 10:02] LABS: Appearance,Urine Clear (Clear); Bilirubin,Urine Negative (Negative); Blood,Urine Negative (Negative); Color,Urine Light Yellow; Glucose,Urine (UA) Negative (Negative); Ketones,Urine Negative (Negative); Leukocyte Esterase,Urine Negative (Negative); Nitrite,Urine Negative (Negative); Protein,Urine Negative (Negative); Specific Gravity,Urine 1.033 (1.001-1.035); Urobilinogen,Urine <2.0 mg/dL (<2.0)
--- NOTE | 2022-04-28 10:35 | XR ---
EXAMINATION TYPE: XR chest 1V portable DATE OF EXAM: 04/28/2022 Comparison: 07/12/2018 Clinical History: 72-year-old male preop cardiac surgery Findings: Heart normal size. Aorta and pulmonary vasculature within normal limits. Some strandy atelectasis in the lower lungs. No consolidation or pleural effusion seen. Impression: Strandy bibasilar atelectasis. Otherwise, no acute process seen.
--- NOTE | 2022-04-28 10:51 | CT ---
EXAMINATION TYPE: CT chest wo con DATE OF EXAM: 04/28/2022 COMPARISON: Radiograph same day HISTORY: 72-year-old male assess aorta for clampability - preop CABG TECHNIQUE: Contiguous axial scanning of the chest without IV contrast. Coronal and sagittal reconstru ctions performed. CT DLP: 520.3 mGycm Automated exposure control for dose reduction was used. FINDINGS: Heart upper limits of normal in size without pericardial effusion. Extensive three-vessel coronary ar tina calcifications are present. The aortic root borderline ectatic at 3.6 cm. Conventional arch vessel branching anatomy. Upper desce nding thoracic aorta borderline ectatic at 3.2 cm. Mild to moderate atherosclerotic calcifications wi thin the aortic arch and descending thoracic aorta. 9 mm right paratracheal lymph node. No thoracic lymphadenopathy by CT size criteria. Arch caliber to the main right and left pulmonary arteries measuring up to 3.2 cm suggesting underlying pulmonary art silvana hypertension. Minimal biapical pleural parenchymal scarring. Some strandy atelectasis is noted in the lower lungs. No consolidation or pleural effusion. Small hiatal hernia. Visualized upper abdomen show some excreting contrast from the kidneys and mild to moderate stool burden. Bones: Dextroconvex curvature upper third thoracic spine. Moderate to advanced degenerative disc dise ase from T6 through T11 levels. Degenerative grade 1 anterolisthesis T5-T6. IMPRESSION: 1. CAD WITH EXTENSIVE THREE-VESSEL CORONARY ARTERY CALCIFICATIONS. 2. Borderline ectatic ascending aorta at 3.6 cm in upper descending thoracic aorta 3.2 cm. Convention al arch vessel branching anatomy. Scattered mild to moderate atherosclerotic calcifications in the mi d to distal aortic arch and descending thoracic aorta. 3. Some strandy atelectasis in the lower lungs. 4. Small hiatal hernia.
[2022-04-28 11:11] VITALS: BP 148/63; PULSE 64
[2022-04-28 12:16] LABS: HCT 35.8 % (39.0-53.0); HGB 12.3 gm/dL (13.0-17.5); MCH 29.1 pg (25.0-35.0); MCHC 34.5 g/dL (31.0-37.0); MCV 84.5 fL (80.0-100.0); Mean Platelet Volume 7.8; Platelet Count 196 k/uL (150-450); RBC 4.24 m/uL (4.30-5.90); RDW 14.4 % (11.5-15.5); WBC 6.8 k/uL (3.8-10.6)
[2022-04-28 12:29] LABS: ALT 30 U/L (4-49); AST 26 U/L (17-59); African American GFR (CKD) >90 (>60 ml/min/1.73 sqM); Albumin 4.2 g/dL (3.5-5.0); Alkaline Phosphatase 69 U/L (38-126); Anion Gap 6 mmol/L; Blood Urea Nitrogen 16 mg/dL (9-20); Calcium 8.8 mg/dL (8.4-10.2); Carbon Dioxide 26 mmol/L (22-30); Chloride 103 mmol/L (98-107); Glucose 98 mg/dL (74-99); Magnesium 2.2 mg/dL (1.6-2.3); Non-African American GFR(CKD) 87 (>60 ml/min/1.73 sqM); Potassium 3.9 mmol/L (3.5-5.1); Sodium 135 mmol/L (137-145); Total Bilirubin 0.7 mg/dL (0.2-1.3); Total Protein 6.6 g/dL (6.3-8.2)
[2022-04-28 12:39] LABS: Partial Thromboplastin Time 26.4 sec (22.0-30.0); Prothrombin Time 10.6 sec (9.0-12.0)
--- NOTE | 2022-04-28 14:16 | P.GSCN ---
History of Present Illness Consult date: 04/28/22 Reason for Consult: Multivessel coronary artery disease Requesting physician: Endy Dietrich History of present illness: This is a 72-year-old gentleman who follows on an outpatient basis with Dr. Brandon Linares for his primary care service and with Dr. Dietrich for his cardiology care. He is a past medical history significant for hypertension, dyslipidemia, remote history of nicotine dependence in which he quit smoking over 20 years ago, peripheral vascular disease, prostate cancer, status post prostatectomy 10 years ago, osteoarthritis with history of bilateral knee replacements, daily marijuana use, GERD, degenerative disc disease, peripheral neuropathy to his feet, history of left carotid stenosis with a 50-69% left ICA stenosis from carotid Doppler in 2017, occasional EtOH use drinks 2-3 alcoholic drinks per week, obesity with a BMI of 35.9 kg/m and family history of coronary artery disease with his dad having history of coronary artery bypass grafting surgery. Recently, the patient has had complaints of dyspnea on exertion and complaints of frequent episodes of heartburn. He denies any fever, chills, palpitations, lightheadedness, headache, diaphoresis, constipation, diarrhea, presyncope or syncope. Due to his recent symptoms the patient underwent a nuclear Lexiscan Cardiolite myocardial perfusion scan which showed abnormal myocardial perfusion imaging with reversible inferior and inferioseptal wall defect with mild hypokinesis of the same segment consistent with stress-induced ischemia in the RCA territory. For further evaluation on 03/31/2022 the patient underwent a transthoracic 2-D echocardiogram which demonstrated a normal left ventricular size with normal systolic function, ejection fraction of 55-60%, mild mitral annular calcification with mild mitral valve regurgitation, trace aortic valve regurgitation, trace tricuspid valve regurgitation, physiologic pulmonic regurg itation, normal pulmonary artery systolic pressure of 21 mmHg and the aortic root is normal. Subsequently, due to the findings on the stress test he was recommended to undergo a cardiac catheterization which was completed today 04/28/2022 which showed severe triple-vessel coronary artery disease with a 90% stenosis to his proximal LAD, a 70% stenosis to his mid diagonal branch, a 95 percent stenosis to his proximal circumflex coronary artery, an 80% stenosis to his first obtuse marginal coronary artery, a 60-70% stenosis to his second obtuse marginal coronary artery and a subtotally occluded proximal right coronary artery and a totally occluded mid segment of the right coronary artery with retrograde filling from the PDA and the PLV. It also demonstrated ipsilateral collaterals and contralateral collaterals to the distal right coronary artery. The heart catheterization results were reviewed with the patient by Dr. Dietrich and a consult was placed to Dr. Gennaro Felix from cardiothoracic surgery for further evaluation and treatment recommendations including myocardial revascularization surgery. Review of Systems A 14 point review of systems was completed and was negative except as mentioned in the HPI. Past Medical History Past Medical History: Cancer, GERD/Reflux, Hyperlipidemia, Hypertension, Osteoarthritis (OA) Additional Past Medical History / Comment(s): DDD /SCIATICA PAIN., PROSTATE CANCER WITH SURGERY. recent shortness of breath with activity. leaking urine History of Any Multi-Drug Resistant Organisms: None Reported Past Surgical History: Prostate Surgery Additional Past Surgical History / Comment(s): TOTAL RIGHT and left KNEE replacements. Past Anesthesia/Blood Transfusion Reactions: No Reported Reaction Past Psychological History: No Psychological Hx Reported Smoking Status: Former smoker (Quit smoking over 20 years ago) Past Alcohol Use History: Occasional (Drinks 2-3 rum or vodka drinks per week) Past Drug Use History: Marijuana (Smokes 1 joint daily) - Past Family History Mother Family Medical History: Cancer Additional Family Medical History / Comment(s): COLON CANCER Father Family Medical History: Coronary Artery Disease (CAD) (History of CABG), Myocardial Infarction (IA) Medications and Allergies Home Medications Medication Instructions Recorded Confirmed Type Labetalol [Trandate] 100 mg PO BID 07/12/18 04/28/22 History Aspirin [Adult Low Dose Aspirin EC] 81 mg PO DAILY 07/03/20 04/28/22 History Losartan Potassium [Cozaar] 100 mg PO DAILY 07/03/20 04/28/22 History amLODIPine BESYLATE 5 mg PO BID 07/03/20 04/28/22 History hydroCHLOROthiazide 25 mg PO DAILY 07/03/20 04/28/22 History Atorvastatin Calcium 40 mg PO DAILY 04/23/22 04/28/22 History Isosorbide Mononitrate [Isosorbide 30 mg PO DAILY 04/23/22 04/28/22 History Mononitrate ER] Mirabegron [Myrbetriq] 25 mg PO HS 04/23/22 04/28/22 History Allergies Allergy/AdvReac Type Severity Reaction Status Date / Time No Known Allergies Allergy Verified 04/28/22 06:45 Surgical - Exam Vital Signs Temp Pulse Resp BP Pulse Ox 97.8 F 69 18 134/67 97 04/28/22 06:43 04/28/22 06:43 04/28/22 06:43 04/28/22 06:43 04/28/22 06:43 - General well developed, well nourished, no distress, no pain, obese - Eyes PERRL, normal ocular movement, no pale, no deviation - ENT normal pinna, normal nares, normal mucosa, no hearing loss, no congestion, poor halfway - Neck Neck is supple, no lymphadenopathy. no masses, no bruits, trachea midline, no venous distension - Respiratory Lung sounds are essentially clear throughout, with few scattered crackles to his bilateral bases left greater than right. No wheezes or rhonchi. Respirations are symmetrical and nonlabored. - Cardiovascular Regular rhythm and rate. S1 and S2 present, negative for S3, gallop or murmur. No peripheral edema. - Abdomen Abdomen is soft, nontender and nondistended. Active bowel sounds present in all 4 abdominal quadrants. No guarding or rigidity. No organomegaly appreciated. - Genitourinary Deferred - Rectum Deferred - Integumentary Skin is warm and dry. No clubbing or cyanosis is present. no rash, no growths, no abnormal pigmentation - Neurologic No focal deficits. normal coordination, normal sensation - Musculoskeletal Moves all 4 extremities with equal strength bilaterally. normal gait - Psychiatric oriented to time, oriented to person, oriented to place, speech is normal, memory intact Results - Labs 04/28/22 11:43 04/28/22 11:43 - Imaging Additional studies: Cardiac catheterization reviewed by Dr. Felix. Transthoracic 2-D echocardiogram report reviewed by Dr. Felix. Assessment and Plan Assessment: 1. Multivessel coronary artery disease 2. History of hypertension 3. Hyperlipidemia 4. Peripheral vascular disease 5. History of left carotid stenosis 50-69% on a carotid duplex study from 2017 6. GERD 7. Remote history of nicotine dependence, quit smoking over 20 years ago 8. Daily marijuana use 9. Occasional EtOH use, drinks 2-3 alcoholic drinks per week 10. Family history of coronary artery disease with his dad having a coronary artery bypass grafting surgery 11. Peripheral neuropathy Plan: The patient was seen and examined in the extended stay unit with his sister present at his bedside. His chart and diagnostics were reviewed. This case was discussed in detail with Dr. Felix from cardiothoracic surgery. Dr. Felix discussed with the patient the findings on the heart catheterization, the treatment options were discussed and knowing understanding the treatment options the patient wishes to proceed with myocardial revascularization surgery. The usual course of myocardial revascularization surgery was discussed including risks and benefits. Preoperative testing and preoperative teaching has been initiated. Importance of risk modification including cessation of smoking marijuana was discussed with the patient. An STS risk score will be calculated in discussed with the patient. Continue to maximize medical therapy with aspirin, statin and beta kamaljit. A 5 m walk test was completed with the patient, Time 1: 3.90 seconds, Time 2: 4.47 seconds, Time 3: 3.77 seconds. Med ical management and other comorbidities per primary care service and Dr. Dietrich's recommendations. The patient will be scheduled tentatively on 05/12/2022 for myocardial revascularization surgery, with left internal mammary artery, endoscopic left radial artery harvest, endoscopic vein harvest, excl usion of left atrial appendage and intraoperative transesophageal echocardiogram. The patient can be discharged home today if okay with Dr. Dietrich and brought back on an elective basis for elective myocardial revascularization surgery. Thank you Dr. Dietrich for this consult and we look for to working with you in the care of this patient. I have personally seen and examined the patient, performed the documentation and the assessment and plan as written. 30 minutes spent on the visit . Jozef LAWSON Pt seen and evaluated with COMPLAINT OPERATOR above. I spent 45 minutes reviewing the data and discussing the plan of care with the patient and his family. Time with Patient: Greater than 30
[2022-04-28 19:18] LABS: Chol/HDL Ratio 2.81 Ratio; LDL Cholesterol,Calculated 56.1 mg/dL (0.0-131.0); VLDL Calculation 17.42 mg/dL (5.00-40.00)
[2022-04-28 19:36] LABS: Hepatitis A Antibody IgM Nonreactive (Nonreactive); Hepatitis B Core IgM Nonreactive (Nonreactive); Hepatitis B Surface Antigen Nonreactive (Nonreactive); Hepatitis C IgG Antibody Nonreactive (Nonreactive)
[2022-04-28] MEDS ORDERED: NON FORMULARY DRUG (Mirabegron [Myrbetriq] 25 MG Tab.Er.24h) PO SCH (21:00)
--- NOTE | 2022-04-29 08:47 | US ---
EXAMINATION TYPE: US vein mapping BIL DATE OF EXAM: 04/28/2022 9:20 AM COMPARISON: NONE CLINICAL HISTORY: preop cardiac surgery. SIDE PERFORMED: Bilateral TECHNIQUE: Lower extremity saphenous vein is examined and measured utilizing real time linear array sonography. Patient History: Smoker: no Heart Disease: yes Previous DVT: no Vascular Surgery: no Discoloration: no Hypertension: yes Diabetes: no Paralysis: no Varicosities: no Edema: no DUPLEX FINDINGS: Greater Saphenous: Color flow seen Measurements in mm: Right Greater Saphenous: Groin: 7.3 x 6.6 mm High Thigh: 7.2 x 6.1 mm Mid Thigh: 3.6 x 2.7 mm Above Knee: 4.9 x 4.7 mm Knee: 4.3 x 4.3 mm Below Knee: 4.2 x 3.9 mm Mid Calf: 2.7 x 2.2 mm At Ankle: 4.6 x 4.3 mm Left Greater Saphenous: Groin: 6.2 x 5.8 mm High Thigh: 3.9 x 3.3 mm Mid Thigh: 4.2 x 4.6 mm Above Knee: 5.6 x 4.2 mm Knee: 4.9 x 4.1 mm Below Knee: 4.1 x 3.6 mm Mid Calf: 5.2 x 4.0 mm At Ankle: 5.6 x 4.7 mm IMPRESSION: 1. Bilateral GSV measurements listed above. 2. Performing surgeon to determine viability as conduit.
--- NOTE | 2022-04-29 08:47 | US ---
EXAMINATION TYPE: US arterial LE multi level DATE OF EXAM: 04/28/2022 10:45 AM CLINICAL HISTORY: preop cabg. Preop cabg. Prior exam in PACS. Prior smoker. Hypertension, hyperlipide ira. History of: Smoker: Prior Hypertension: Yes Diabetic: No Hyperlipidemia: Yes TIA/CVA: No Previous Vascular Surgery: No IN: No Vascular Ulcers: No Comparison: Prior study November 30, 2019 Doppler Waveforms: Right: Biphasic Left: Biphasic Right Brachial Pressure: Deferred due to right radial approach heart cath. Left Brachial Pressure: Deferred due to IV at elbow. Left radial pressure was used for exam. Ankle-Brachial Indices: Right: 0.89 Left: 0.83 Toe Brachial Indices: Right: 0.56 Left: 0.60 Limitations in exam due to great amount of interference in extended stay unit. Difficulty obtaining pressures due to interference sound. IMPRESSION: Suboptimal study. Mild peripheral arterial disease bilaterally is felt present.
--- NOTE | 2022-04-29 08:47 | US ---
EXAMINATION TYPE: Pre-Operative Non-Invasive Evaluation of the hand for Potential Radial Artery [place], Measurements only DATE OF EXAM: 04/28/2022 9:20 AM CLINICAL HISTORY: measurements only. SIDE PERFORMED: Left TECHNIQUE: Radial artery is measured utilizing real time linear array sonography. Duplex Findings: Radial Artery: Color flow seen Measurements in mm, transverse view: Left Radial: mm Proximal: 3.2 x 3.4 mm Mid: 3.2 x 3.3 mm Distal: 4.1 x 3.3 mm IMPRESSION: 1. Left radial artery measurements listed above. 2. Performing surgeon to determine viability as conduit.
== END 2022-04-28 11:54 | disposition home or self-care (01) ==
LOC: CATHCVL 06:14
PROVIDERS: ATTEND Internal Medicine Interventional Cardiology
DX: I25.10 Atherosclerotic heart disease of native coronary artery without angina pectoris (principal); E78.5 Hyperlipidemia, unspecified; I10 Essential (primary) hypertension; I73.9 Peripheral vascular disease, unspecified; K44.9 Diaphragmatic hernia without obstruction or gangrene; R94.39 Abnormal result of other cardiovascular function study; Z01.818 Encounter for other preprocedural examination; Z87.891 Personal history of nicotine dependence
CPT/HCPCS: 94150; 93458; 80061; 80053; 80074; 84443; 83735; 85027; 85610; 85730; 81003; 87070; 83036; 71045; 93931; 93970; 93923; 93880; 71250; C1769 ×3; C1894; J2001; J1644; Q9967; J3010

== ENCOUNTER → 2022-05-06 | Outpatient (CLI) | payer MEDICARE | END | disposition home or self-care (01) | LOC: LABWHC1 09:49 | PROVIDERS: ATTEND Thoracic Surgery (Cardiothoracic Vascular Surgery) | DX: Z53.9 Procedure and treatment not carried out, unspecified reason (principal) ==

== ENCOUNTER 2022-05-10 05:35 | Inpatient (IN) | payer MEDICARE ==
[2022-05-06 10:23] LABS: HCT 36.7 % (39.0-53.0); MCH 28.2 pg (25.0-35.0); MCHC 32.8 g/dL (31.0-37.0); MCV 85.7 fL (80.0-100.0); Mean Platelet Volume 7.8; Platelet Count 206 k/uL (150-450); RBC 4.27 m/uL (4.30-5.90); RDW 14.9 % (11.5-15.5); WBC 6.4 k/uL (3.8-10.6)
[2022-05-06 10:32] LABS: ALT 41 U/L (4-49); AST 30 U/L (17-59); African American GFR (CKD) >90 (>60 ml/min/1.73 sqM); Albumin 4.5 g/dL (3.5-5.0); Alkaline Phosphatase 78 U/L (38-126); Anion Gap 6 mmol/L; Blood Urea Nitrogen 23 mg/dL (9-20); Calcium 9.3 mg/dL (8.4-10.2); Carbon Dioxide 28 mmol/L (22-30); Chloride 104 mmol/L (98-107); Glucose 115 mg/dL (74-99); Non-African American GFR(CKD) 83 (>60 ml/min/1.73 sqM); Partial Thromboplastin Time 25.9 sec (22.0-30.0); Potassium 4.4 mmol/L (3.5-5.1); Prothrombin Time 10.6 sec (9.0-12.0); Sodium 138 mmol/L (137-145); Total Protein 7.2 g/dL (6.3-8.2)
[2022-05-06 16:23] LABS: Chol/HDL Ratio 2.76 Ratio; LDL Cholesterol,Calculated 57.6 mg/dL (0.0-131.0); VLDL Calculation 10.62 mg/dL (5.00-40.00)
[2022-05-06 17:19] LABS: Appearance,Urine Clear (Clear); Bilirubin,Urine Negative (Negative); Blood,Urine Negative (Negative); Color,Urine Yellow (Yellow); Ketones,Urine Negative (Negative); Nitrite,Urine Negative (Negative)
[~2022-05-10 05:35] MED LIST changes: -ACETAMINOPHEN TAB 500 MG TAB PO PRN; +ALBUMIN HUMAN 25% 50 ML IV ONE; +ALBUMIN HUMAN 5% 500 ML IVPB ONE; +ASPIRIN 325 MG TAB PO ONE; +ATORVASTATIN 10 MG TAB PO ONE; +CALCIUM CHLORIDE 100 MG/ML 10 ML SYRINGE IV ONE; +CHLORHEXIDINE GLUCONATE 15 ML CUP MUCOUS MEM ONE; +CLEVIDIPINE BUTYRATE 25 MG in EMPTY BAG 1 BAG IV ONE; -DEXAMETHASONE SOD PHOSPHATE 4 MG/ML 1 ML VIAL IV ONE; +DILTIAZEM 125 MG in SODIUM CHLORIDE 0.9% 100 ML IV ONE; +ELECTROLYTE-A SOLUTION 1,000 ML with POTASSIUM CHLORIDE 100 MEQ, MAGNESIUM SULFATE 16 M... IV ONE; +ELECTROLYTE-A SOLUTION 1,000 ML with POTASSIUM CHLORIDE 40 MEQ, MAGNESIUM SULFATE 16 ME... IV ONE; -GABAPENTIN 300 MG CAP PO PRN; +HEPARIN SODIUM 1,000 UN/ML (10ML VL) IV ONE; +HEPARIN SODIUM,PORCINE 5,000 UNIT in SODIUM CHLORIDE 0.9% 500 ML 500 ML IV ONE; +INSULIN REGULAR 100 UNIT in SODIUM CHLORIDE 0.9% 100 ML IV ONE; +LACTATED RINGERS 1,000 ML IV ONE; -LACTATED RINGERS 1,000 ML IV SCH; -LIDOCAINE 1% (10MG/ML) FOR IV START INTRADERMA PRN; +MAGNESIUM SULFATE 16.24 MEQ in EMPTY SYRINGE 1 SYR IV ONE; +MANNITOL 25% 12.5 GM/50 ML VIAL IV ONE; -MELOXICAM 7.5 MG TAB PO PRN; +METOPROLOL TARTRATE 12.5 MG TAB PO ONE; -MIDAZOLAM 2 MG/2 ML VIAL IV PRN; +MUPIROCIN 2% OINT 22 GM TUBE NASAL ONE; +NITROGLYCERIN SL TABS 0.4 MG TAB SUBLINGUAL ONE; +NITROGLYCERIN-D5W PMX 25 MG/250 ML BTL IV ONE; +NITROGLYCERIN-D5W PMX 50 MG in DEXTROSE/WATER 1 250ML.BAG IV ONE; +NOREPINEPHRINE 4 MG in SODIUM CHLORIDE 0.9% 250 ML IV ONE; -ONDANSETRON 4 MG/2 ML VIAL IVP ONE; +PAPAVERINE 360 MG in SODIUM CHLORIDE 0.9% 90 ML IV ONE; +PHENYLEPHRINE 10 MG/ML VIAL IV ONE; +PHENYLEPHRINE 40 MG in SODIUM CHLORIDE 0.9% 250 ML IV ONE; +PROTAMINE SULFATE 10 MG/ML 25 ML VIAL IV ONE; +PROTAMINE SULFATE 250 MG in EMPTY BAG 1 BAG IV ONE; -ROPIVACAINE/EPI/CLONIDINE/KET 50 ML SYRINGE MISCELLANE PRN; +SODIUM BICARB 8.4% 50 ML SYR (1 MEQ/ML) IV ONE; +SODIUM CHLORIDE 0.9% 1,000 ML IV ONE; -TRANEXAMIC ACID 1,000 MG in SODIUM CHLORIDE 0.9% 100 ML IVPB PRN; +TRANEXAMIC ACID 2,000 MG in SODIUM CHLORIDE 0.9% 80 ML IV ONE; +ceFAZolin 1,000 MG in SODIUM CHLORIDE 0.9% IRRIGATIO 1,000 ML IRRIGATION ONE; +propofoL 1,000 MG/100 ML VIAL IV ONE
[2022-05-10 06:11] LABS: Glucose,Whole Blood 114 mg/dL (70-110)
[2022-05-10] MEDS ORDERED: PROPOFOL 10 MG/ML 20 ML VIAL IV ONE (07:40)
[2022-05-10] MEDS ORDERED: ePHEDrine 50 MG/ML 1 ML VIAL ONE (07:40)
[2022-05-10] MEDS ORDERED: MIDAZOLAM HCL 10 MG/10 ML VIAL ONE (07:40)
[2022-05-10] MEDS ORDERED: SODIUM CHLORIDE 0.9% 100 ML BAG ONE (07:40)
[2022-05-10] MEDS ORDERED: fentaNYL (PF) 50 MCG/ML 50 ML VIAL ONE (07:40)
[2022-05-10] MEDS ORDERED: NITROGLYCERIN-D5W PMX 50 MG/250 ML BOTTLE IV ONE (07:40)
[2022-05-10] MEDS ORDERED: HEPARIN SODIUM,PORCINE 10,000 UNIT/ML 1 ML VIAL ONE (07:40)
[2022-05-10] MEDS ORDERED: PROTAMINE SULFATE 10 MG/ML 5 ML VIAL IV ONE (07:40)
[2022-05-10] MEDS ORDERED: ceFAZolin 1,000 MG VIAL ONE (07:40)
[2022-05-10] MEDS ORDERED: SODIUM CHLORIDE 0.9% IRRIG 1,000 ML BTL IRRIGATION ONE (07:40)
[2022-05-10] MEDS ORDERED: ALBUMIN HUMAN 5% (25gm) 500 ML VIAL IVPB ONE (07:40)
[2022-05-10] MEDS ORDERED: VECURONIUM 10 MG VIAL IV ONE (07:40)
[2022-05-10] MEDS ORDERED: GLYCOPYRROLATE 0.2 MG/ML 2 ML VIAL ONE (07:40)
[2022-05-10] MEDS ORDERED: ROCURONIUM 10 MG/ML (5 ML VIAL) IV ONE (07:40)
[2022-05-10] MEDS ORDERED: ELECTROLYTE-R (PH 7.4) 1,000 ML IV.SOLN IV ONE (07:40)
[2022-05-10 08:37] LABS: ABG Base Excess 1.6 mmol/L; ABG Glucose Whole Blood 106 mg/dL (75-99); ABG HCO3 27 mmol/L (21-25); ABG Hematocrit 32 % (34.0-46.0); ABG Ionized Calcium 4.9 mg/dL (4.5-5.3); ABG Lactic Acid Whole Blood 1.2 mmol/L (0.5-1.6); ABG Oxygen Saturation 98.3 % (94-97); ABG PCO2 43 mmHg (35-45); ABG PH 7.41 (7.35-7.45); ABG PO2 177 mmHg (83-108); ABG Potassium Whole Blood 4.1 mmol/L (3.4-4.5); ABG Sodium Whole Blood 139 mmol/L (135-146); ABG TCO2 28 mmol/L (19-24); Allen Test Performed? Yes
[2022-05-10 09:56] LABS: ABG Base Excess 1.5 mmol/L; ABG Glucose Whole Blood 113 mg/dL (75-99); ABG HCO3 27 mmol/L (21-25); ABG Hematocrit 32 % (34.0-46.0); ABG Ionized Calcium 4.9 mg/dL (4.5-5.3); ABG Lactic Acid Whole Blood 0.9 mmol/L (0.5-1.6); ABG Oxygen Saturation 98.5 % (94-97); ABG PCO2 47 mmHg (35-45); ABG PH 7.37 (7.35-7.45); ABG PO2 218 mmHg (83-108); ABG Potassium Whole Blood 4.2 mmol/L (3.4-4.5); ABG Sodium Whole Blood 139 mmol/L (135-146); ABG TCO2 29 mmol/L (19-24); Allen Test Performed? Yes
[2022-05-10 10:26] LABS: ABG Base Excess 1.1 mmol/L; ABG Glucose Whole Blood 108 mg/dL (75-99); ABG HCO3 26 mmol/L (21-25); ABG Hematocrit 30 % (34.0-46.0); ABG Ionized Calcium 4.7 mg/dL (4.5-5.3); ABG Lactic Acid Whole Blood 0.9 mmol/L (0.5-1.6); ABG Oxygen Saturation 98.8 % (94-97); ABG PCO2 43 mmHg (35-45); ABG PO2 231 mmHg (83-108); ABG Sodium Whole Blood 139 mmol/L (135-146); ABG TCO2 28 mmol/L (19-24); Allen Test Performed? Yes
[2022-05-10 10:55] LABS: ABG Base Excess 1.3 mmol/L; ABG Glucose Whole Blood 106 mg/dL (75-99); ABG HCO3 26 mmol/L (21-25); ABG Hematocrit 30 % (34.0-46.0); ABG Ionized Calcium 4.7 mg/dL (4.5-5.3); ABG Lactic Acid Whole Blood 1.2 mmol/L (0.5-1.6); ABG Oxygen Saturation 98.7 % (94-97); ABG PCO2 42 mmHg (35-45); ABG PO2 220 mmHg (83-108); ABG Potassium Whole Blood 4.1 mmol/L (3.4-4.5); ABG Sodium Whole Blood 139 mmol/L (135-146); ABG TCO2 28 mmol/L (19-24); Allen Test Performed? Yes
[2022-05-10 11:27] LABS: ABG Base Excess 0.9 mmol/L; ABG Glucose Whole Blood 105 mg/dL (75-99); ABG HCO3 26 mmol/L (21-25); ABG Hematocrit 28 % (34.0-46.0); ABG Ionized Calcium 4.7 mg/dL (4.5-5.3); ABG Oxygen Saturation 98.7 % (94-97); ABG PCO2 42 mmHg (35-45); ABG PO2 199 mmHg (83-108); ABG Sodium Whole Blood 139 mmol/L (135-146); ABG TCO2 27 mmol/L (19-24); Allen Test Performed? Yes
--- NOTE | 2022-05-10 13:00 | P.OP ---
Date of Procedure: 05/10/22 Preoperative Diagnosis: 3v CAD Postoperative Diagnosis: Same Procedure(s) Performed: 1. Off pump coronary artery bypass grafting x 4. Left internal thoracic artery to left anterior descending artery, radial artery from aorta sequential to ramus intermedius and obtuse marginal artery #1, saphenous vein from aorta to posterior descending artery. 2. Left atrial appendage ligation with #35mm AtriClip 3. Endoscopic left radial and left greater saphenous vein harvest 4. Graft flow measurement using the MediStim flow meter 5. Trans-esophageal echo Implants: None Anesthesia: GETA Surgeon: Gennaro Felix Engineering Associate #1: Erick Campos Engineering Associate #2: Slick Lee Estimated Blood Loss (ml): 500 Pathology: none sent Condition: critical Disposition: ICU Indications for Procedure: This patient is a 72 year-old male who developed progressive shortness of breath and epigastric discomfort and "reflux" over the last several months. Cardiac angiography revealed significant 3v CAD. Surgical myocardial revascularization was recommended and he was in agreement to proceed. His sts risk of morbidity and mortality was discussed with him and his sisters prior to surgery. Operative Findings: Intra-op AMAURI reveals EF of 40-45% with septal hyookinesis and mild MR. Post-op AMAURI revealed much improved EF to 55% with good wall motion. RIZO-LAD 55ml/min, P.I. 2.4 SV-PDA 12ml/min, P.I. 6 RA-RAMUS-OM 34ml/min, P.I. 1.3 Description of Procedure: The patient underwent central line, swan jeremias catheter, and arterial line placement by the anesthesia team. The patient was brought back to the operating room and placed on the table supine. General endotracheal anesthesia was induced and the patient was prepped and draped in the usual sterile fashion from the c hin to the ankles. A time-out was performed and antibiotics were given. A midline incision was made on the chest. This was carried down to bone and a median sternotomy was performed. Hemostasis on the bone was achieved electrocautery. The left pleura was entered and the left internal thoracic artery was harvested in a skeletonized fashion. Simultaneously two other assistants harvested the left radial artery and left greater saphenous vein endoscopically. The patient was systemically heparinized and the AL was transected and placed in a papaverine jacuzzi. A left side chest tube was placed. The pericarium was opened in a T-fashion and a pericardial cradle was created. Stay sutures were placed. A 40mm AtriClip was placed on the left atrial appendage effectively ligating it. The LAD was brought into the field and the octopus stabilizer was used to stabilize the midportion of the vessel. A arteriotomy was made and a 1.5mm flow through was inserted. I then performed an end to side anastomosis with between the AL and the LAD using a 7-0 prolene. The flow through was removed prior to tieing down the anastomosis. The LAD was a good target measuring 1.75mm. Next the inferior wall was exposed and the stabilizer was placed on the PDA. An arteriotomy was made in the PDA which was also a good target and 1.5mm flow through was inserted. An end to side anastomosis was performed between the saphenous vein and PDA using a running 7-0 prolene. The flow through was removed prior to tieing down the anastomosis. Next the saphenous vein was fastened to the ascending aorta using a heartstring device and running 5-0 prolene. Next the lateral wall was exposed and the first obtuse marginal artery was identified, stabilized using the octopus stabilizer and arteriotomy created with insertion of 1.5mm flow through. The OM was 1.5mm in size and a decent target. An end to side anastomosis was performed between the radial artery and obtuse marginal branch using running 7-0 prolene. The flow through was removed prior to tieing down asastomosis. Next the ramus intermedius was exposed, stabilized and arteriortomy created. A 1.5mm flow through was inserted. The ramus was a heavily calcified vessel. A side to side anastomosis was created between the radial artery and the ramus intermedius using a running 7-0 prolene. The shunt was removed prior to tieing down the anastomosis. Lastly, the radial artery was fastened to the ascending aorta using another heartstring device and running 5-0 prolene. Graft flows were checked using the medi-stim flow meter system and they were excellent. Protamine was given and hemostasis was secured. A 19F imelda and 32F chest tube was placed in the right pleura and mediastinum respectively. The sternum was closed with cables. The fascia was closed with ethibond. The subcutaneous tissues and skin of the sternum, arm and leg were closed with vicryl in layers. All counts were correct and the patient was transported to the CVICU.
[2022-05-10] MEDS ORDERED: Magnesium Replacement Protocol 1 EACH MISC MISCELLANE PRN (13:03)
[2022-05-10] MEDS ORDERED: BENZOCAINE/MENTHOL LOZENG 1 EACH LOZENGE MUCOUS MEM PRN (13:03)
[2022-05-10] MEDS ORDERED: AMIODARONE 450 MG in DEXTROSE 5% IN WATER 250 ML IV PRN ×2 (13:03)
[2022-05-10] MEDS ORDERED: hydrALAZINE HCL 20 MG/ML 1 ML VIAL IVP PRN (13:03)
[2022-05-10] MEDS ORDERED: Potassium Replacement Protocol 1 EACH MISC MISCELLANE PRN (13:03)
[2022-05-10] MEDS ORDERED: IPRATROPIUM-ALBUTEROL 3 ML NEB INHALATION PRN (13:03)
[2022-05-10] MEDS ORDERED: DILTIAZEM 125 MG in SODIUM CHLORIDE 0.9% 100 ML IV SCH (13:03)
[2022-05-10] MEDS ORDERED: AMIODARONE 360 MG in DEXTROSE 5% IN WATER 200 ML IV PRN ×2 (13:03)
[2022-05-10] MEDS ORDERED: NITROGLYCERIN-D5W PMX 50 MG in DEXTROSE/WATER 1 250ML.BAG IV SCH (13:03)
[2022-05-10] MEDS ORDERED: DEXTROSE 50% SYRINGE 50 ML IVP PRN ×2 (13:03)
[2022-05-10] MEDS ORDERED: INSULIN REGULAR 100 UNIT in SODIUM CHLORIDE 0.9% 100 ML IV SCH (13:03)
[2022-05-10] MEDS ORDERED: DEXMEDETOMIDINE/0.9% NACL(PMX) 400 MCG in EMPTY BAG 1 BAG IV SCH (13:03)
[2022-05-10] MEDS ORDERED: ONDANSETRON 4 MG/2 ML VIAL IVP PRN (13:03)
[2022-05-10] MEDS ORDERED: METOCLOPRAMIDE 5 MG/ML 2 ML VIAL IVP PRN (13:03)
[2022-05-10 13:14] LABS: Glucose,Whole Blood 100 mg/dL (70-110)
[2022-05-10] MEDS: ALBUMIN HUMAN 5% 250 ML in EMPTY BAG 1 BAG IVPB PRN ×2 (13:24→16:27)
[2022-05-10 13:38] LABS: ABG Base Excess -0.4 mmol/L; ABG HCO3 25 mmol/L (21-25); ABG Oxygen Saturation 99.3 % (94-97); ABG PCO2 45 mmHg (35-45); ABG PH 7.36 (7.35-7.45); ABG PO2 284 mmHg (83-108); ABG TCO2 26 mmol/L (19-24)
[2022-05-10 13:39] LABS: Allen Test Performed? no
[2022-05-10 13:41] LABS: Basophils % (A) 0 %; Eosinophils # (A) 0.2 k/uL (0-0.7); Eosinophils % (A) 2 %; HCT 27.4 % (39.0-53.0); Lymphocytes # (A) 1.6 k/uL (1.0-4.8); Lymphocytes % (A) 18 %; MCH 28.6 pg (25.0-35.0); MCHC 32.8 g/dL (31.0-37.0); MCV 87.3 fL (80.0-100.0); Mean Platelet Volume 8.3; Monocytes # (A) 0.4 k/uL (0-1.0); Monocytes % (A) 4 %; Neutrophils # (A) 6.6 k/uL (1.3-7.7); Neutrophils % (A) 75 %; Platelet Count 133 k/uL (150-450); RBC 3.14 m/uL (4.30-5.90); RDW 15.4 % (11.5-15.5); WBC 8.8 k/uL (3.8-10.6)
[2022-05-10 13:42] LABS: Ionized Calcium 4.9 mg/dL (4.5-5.3)
[2022-05-10] MEDS: LACTATED RINGERS 1,000 ML IV SCH (13:45)
[2022-05-10] MEDS: CLEVIDIPINE BUTYRATE 25 MG in EMPTY BAG 1 BAG IV SCH ×2 (13:47→14:03)
--- NOTE | 2022-05-10 13:48 | XR ---
EXAMINATION TYPE: XR chest 1V portable DATE OF EXAM: 05/10/2022 COMPARISON: 04/28/2022 INDICATION: Postop cardiac surgery TECHNIQUE: Single frontal view of the chest is obtained. FINDINGS: The heart size is normal. The pulmonary vasculature is normal. Some mild atelectasis is likely within the left mid and lower lung field. Minimal subsegmental atelec tasis at the right base medially present. Endotracheal tube tip is 3.2 cm above the dinorah. Nasogastric transverse with partial tip in the left upper quadrant of the abdomen. Right-sided Bernice-Meghna catheter the tip in the main pulmonary artery. Left-sided chest tube is present. No pneumothorax is evident. IMPRESSION: 1. Lines and catheters discussed above. 2. Subsegmental atelectasis greater on the left.
[2022-05-10 13:50] LABS: ALT 20 U/L (4-49); AST 24 U/L (17-59); African American GFR (CKD) >90 (>60 ml/min/1.73 sqM); Albumin 3.2 g/dL (3.5-5.0); Alkaline Phosphatase 40 U/L (38-126); Anion Gap 4 mmol/L; Blood Urea Nitrogen 17 mg/dL (9-20); Calcium 7.8 mg/dL (8.4-10.2); Carbon Dioxide 24 mmol/L (22-30); Chloride 109 mmol/L (98-107); Glucose 97 mg/dL (74-99); Magnesium 1.8 mg/dL (1.6-2.3); Non-African American GFR(CKD) 89 (>60 ml/min/1.73 sqM); Potassium 4.1 mmol/L (3.5-5.1); Sodium 137 mmol/L (137-145); Total Bilirubin 0.5 mg/dL (0.2-1.3); Total Protein 4.9 g/dL (6.3-8.2)
[2022-05-10 13:56] LABS: INR 1.2 (<1.2); Partial Thromboplastin Time 28.9 sec (22.0-30.0); Prothrombin Time 12.6 sec (9.0-12.0)
[2022-05-10 14:16] LABS: Glucose,Whole Blood 118 mg/dL (70-110)
--- NOTE | 2022-05-10 14:24 | P.CNPUL ---
History of Present Illness Consult date: 05/10/22 Requesting physician: Gennaro Felix Reason for consult: other Chief complaint: ICU management. History of present illness: Pulmonary/critical care consult dated 05/10/2022. 72-year-old male who follows up with Dr. Linares as a primary, and Dr. Dietrich for cardiology. The patient has a history of hypertension, hyperlipidemia, and previous history of tobacco use. Also, has history of peripheral vascular disease, prostate cancer with previous prostatectomy, osteoarthritis, bilateral knee replacements, daily marijuana use, GERD, degenerative disc disease, peripheral neuropathy, carotid artery stenosis, and occasional alcohol use. I'm asked to see the patient today for ICU management and mechanical ventilation management. The patient had a alcohol four-vessel bypass, including RIZO to LAD, and saphenous vein graft to PDA among other bypasses. The patient also had a left atrial appendage ligation, and intraoperative transesophageal echocardiogram. The patient is currently on the ventilator, with settings of volume assist control, rate 14, tidal volume 550, FiO2 100%, PEEP of 10. Gases are pending. He is on Cardizem 5 mg an hour, nitroglycerin at 5 mcg/m, propofol at 10 mcg/kg/m, and lactated Ringer's at 50 mL an hour. Chest x-ray shows some operative changes as well as some mild bibasilar atelectasis. Labs include a white count 8.8, hemoglobin 9, hematocrit 27.4, and a platelet count of 133,000. Blood gases show pO2 of 284, pCO2 45, and a pH of 7.36. Sodium 137, potassium 4.1, chlorides 109, CO2 24, with a normal BUN and creatinine. Review of Systems REVIEW OF SYSTEMS: A review of systems cannot be obtained on this patient, as the patient is currently sedated, intubated, and mechanically ventilated. CONSTITUTIONAL: [Negative.] NEUROLOGIC: [ Negative.] HEENT: [ Negative.] CARDIAC: [Negative.] PULMONARY: Shortness of breath on exertion. GI: Frequent bouts of heartburn. : [Negative.] RHEUMATOLOGIC: [ Negative.] IMMUNOLOGIC: [ Negative.] ENDOCRINE: [Negative. ] DERMATOLOGIC: [Negative.] Past Medical History Past Medical History: Cancer, GERD/Reflux, Hyperlipidemia, Hypertension, Osteoarthritis (OA) Additional Past Medical History / Comment(s): DDD /SCIATICA PAIN-sharda toes numb both feet, PROSTATE CANCER WITH SURGERY. recent shortness of breath with activity. leaking urine History of Any Multi-Drug Resistant Organisms: None Reported Past Surgical History: Heart Catheterization, Joint Replacement, Prostate Surgery Additional Past Surgical History / Comment(s): TOTAL RIGHT and left KNEE replacements. prostatectomy Past Anesthesia/Blood Transfusion Reactions: No Reported Reaction Smoking Status: Former smoker - Past Family History Mother Family Medical History: Cancer Additional Family Medical History / Comment(s): COLON CANCER Father Family Medical History: Coronary Artery Disease (CAD), Myocardial Infarction (OK) Medications and Allergies Home Medications Medication Instructions Recorded Confirmed Type Labetalol [Trandate] 100 mg PO BID 07/12/18 05/10/22 History Aspirin [Adult Low Dose Aspirin EC] 81 mg PO DAILY 07/03/20 05/10/22 History Losartan Potassium [Cozaar] 100 mg PO DAILY 07/03/20 05/10/22 History amLODIPine BESYLATE 5 mg PO BID 07/03/20 05/10/22 History hydroCHLOROthiazide 25 mg PO DAILY 07/03/20 05/10/22 History Atorvastatin Calcium 40 mg PO DAILY 04/23/22 05/10/22 History Isosorbide Mononitrate [Isosorbide 30 mg PO BID 04/23/22 05/10/22 History Mononitrate ER] Mirabegron [Myrbetriq] 25 mg PO HS 04/23/22 05/10/22 History Omeprazole Magnesium [PriLOSEC OTC] 20 mg PO HS 05/06/22 05/10/22 History Allergies Allergy/AdvReac Type Severity Reaction Status Date / Time No Known Allergies Allergy Verified 05/10/22 06:17 Physical Exam Osteopathic Statement: *. No significant issues noted on an osteopathic structural exam other than those noted in the History and Physical/Consult. Vitals: Vital Signs Temp Pulse Pulse Resp BP BP Pulse Ox 05/10/22 13:41 05/10/22 13:10 05/10/22 13:00 05/10/22 05:59 98 F 66 65 16 132/69 144/71 96 FiO2 05/10/22 13:41 60 05/10/22 13:10 100 05/10/22 13:00 100 05/10/22 05:59 Intake and Output 0105/10/22 05/10/22 22:59 06:59 14:59 Intake Total 53.067 Output Total 1600 Balance -1546.933 Intake: IV 53 Intake, IV Titration 0.067 Amount Clevidipine Butyrate 25 0.067 mg In Empty Bag 1 bag @ 1 MG/HR 2 mls/hr IV .Q24H [facility] Rx#:[id number] Output: Urine 100 Estimated Blood Loss 1500 Other: Weight 107.4 kg No acute distress, sedated, with an orally placed endotracheal tube. HEENT examination is grossly unremarkable. Neck supple. Full range of motion. No adenopathy thyromegaly or neck vein distention. Cardiovascular examination reveals regular rhythm rate. S1-S2 normal. No S3 or S4. No discernible murmur noted. Heart rate 87 bpm. Lungs reveal clear breath sounds. Breath sounds are equal bilaterally. No adventitious lung sounds including wheezes rhonchi or crackles. Abdomen soft without auscultated bowel sounds. No masses. Extremities are intact. No cyanosis clubbing or edema. Skin is without rash or lesion. Neurologic examination cannot be adequately evaluated at this time. Results - Laboratory Findings CBC and BMP: 05/10/22 13:14 05/10/22 13:14 ABG ABG pH 7.36 (7.35-7.45) 05/10/22 13:36 ABG pCO2 45 mmHg (35-45) 05/10/22 13:36 ABG pO2 284 mmHg (83-108) H 05/10/22 13:36 ABG O2 Saturation 99.3 % (94-97) H 05/10/22 13:36 PT/INR, D-dimer PT 12.6 sec (9.0-12.0) H 05/10/22 13:14 INR 1.2 (<1.2) H 05/10/22 13:14 Abnormal lab findings: Abnormal Labs 05/06/22 05/06/22 05/06/22 09:56 09:56 09:57 RBC 4.27 L Hgb 12.0 L Hct 36.7 L Plt Count PT INR ABG pCO2 ABG pO2 ABG HCO3 ABG Total CO2 ABG O2 Saturation ABG Hematocrit ABG Glucose Hemoglobin Chloride BUN 23 H Glucose 115 H POC Glucose (mg/dL) Calcium Total Protein Albumin HDL Cholesterol 38.80 L Arterial Blood Glucose Crossmatch See Detail 05/10/22 05/10/22 05/10/22 06:06 08:37 09:57 RBC Hgb Hct Plt Count PT INR ABG pCO2 47 H ABG pO2 177 H 218 H ABG HCO3 27 H 27 H ABG Total CO2 28 H 29 H ABG O2 Saturation 98.3 H 98.5 H ABG Hematocrit 32 L 32 L ABG Glucose 106 H 113 H Hemoglobin 10.6 L 10.5 L Chloride BUN Glucose POC Glucose (mg/dL) 114 H Calcium Total Protein Albumin HDL Cholesterol Arterial Blood Glucose 106 H 113 H Crossmatch 05/10/22 05/10/22 05/10/22 10:27 10:55 11:27 RBC Hgb Hct Plt Count PT INR ABG pCO2 ABG pO2 231 H 220 H 199 H ABG HCO3 26 H 26 H 26 H ABG Total CO2 28 H 28 H 27 H ABG O2 Saturation 98.8 H 98.7 H 98.7 H ABG Hematocrit 30 L 30 L 28 L ABG Glucose 108 H 106 H 105 H Hemoglobin 9.9 L 9.7 L 9.0 L Chloride BUN Glucose POC Glucose (mg/dL) Calcium Total Protein Albumin HDL Cholesterol Arterial Blood Glucose 108 H 106 H 105 H Crossmatch 05/10/22 05/10/22 05/10/22 13:14 13:14 13:14 RBC 3.14 L Hgb 9.0 L D Hct 27.4 L Plt Count 133 L PT 12.6 H INR 1.2 H ABG pCO2 ABG pO2 ABG HCO3 ABG Total CO2 ABG O2 Saturation ABG Hematocrit ABG Glucose Hemoglobin Chloride 109 H BUN Glucose POC Glucose (mg/dL) Calcium 7.8 L Total Protein 4.9 L Albumin 3.2 L HDL Cholesterol Arterial Blood Glucose Crossmatch 05/10/22 13:36 RBC Hgb Hct Plt Count PT INR ABG pCO2 ABG pO2 284 H ABG HCO3 ABG Total CO2 26 H ABG O2 Saturation 99.3 H ABG Hematocrit ABG Glucose Hemoglobin Chloride BUN Glucose POC Glucose (mg/dL) Calcium Total Protein Albumin HDL Cholesterol Arterial Blood Glucose Crossmatch - Diagnostic Findings Chest x-ray: image reviewed Assessment and Plan Assessment: Status post off-pump four-vessel bypass grafting for CAD. Routine postoperative ventilator management. History of hypertension. History of dyslipidemia. Previous history of tobacco use. Peripheral vascular disease. Prostate cancer, status post prostatectomy. Osteoarthritis. Gastroesophageal reflux disease. Degenerative disc disease. Peripheral neuropathy. Carotid artery stenosis. Plan: Plan dated 05/10/2022. The patient appears be doing relatively well. Initial blood gases excellent, and the FiO2 can be reduced. We will continue to follow make recommendations along the way. I suspect the patient will be an early extubation patient, t ypically less than 6 hours. Additional recommendations and suggestions are forthcoming. We will continue to follow and make suggestions along the way. Time with Patient: Greater than 30
[2022-05-10 14:44] LABS: Glucose,Whole Blood 125 mg/dL (70-110)
[2022-05-10] MEDS: MAGNESIUM SULFATE-D5W PMX 1 GM in DEXTROSE/WATER 1 100ML.BAG IVPB SCH ×2 (14:51→17:19)
[2022-05-10 15:59] LABS: Glucose,Whole Blood 133 mg/dL (70-110)
[2022-05-10] MEDS ORDERED: IPRATROPIUM-ALBUTEROL 3 ML NEB INHALATION SCH (16:00)
[2022-05-10] MEDS: HEPARIN SODIUM,PORCINE/PF 5,000 UNIT/0.5 ML SYRINGE SQ SCH ×2 (16:09→23:53)
[2022-05-10 16:15] LABS: Basophils % (A) 0 %; Eosinophils # (A) 0.1 k/uL (0-0.7); Eosinophils % (A) 1 %; HCT 29.5 % (39.0-53.0); HGB 9.6 gm/dL (13.0-17.5); Lymphocytes % (A) 10 %; MCH 28.4 pg (25.0-35.0); MCHC 32.6 g/dL (31.0-37.0); MCV 87.2 fL (80.0-100.0); Mean Platelet Volume 8.5; Monocytes # (A) 0.5 k/uL (0-1.0); Monocytes % (A) 5 %; Neutrophils # (A) 8.4 k/uL (1.3-7.7); Neutrophils % (A) 83 %; Platelet Count 175 k/uL (150-450); RBC 3.39 m/uL (4.30-5.90); RDW 15.4 % (11.5-15.5); WBC 10.2 k/uL (3.8-10.6)
[2022-05-10] MEDS ORDERED: PROTAMINE SULFATE 10 MG/ML 5 ML VIAL IV STA (16:31)
[2022-05-10 17:14] LABS: Glucose,Whole Blood 143 mg/dL (70-110)
[2022-05-10 18:05] LABS: ABG Base Excess -1.1 mmol/L; ABG HCO3 24 mmol/L (21-25); ABG Oxygen Saturation 98.5 % (94-97); ABG PCO2 42 mmHg (35-45); ABG PH 7.37 (7.35-7.45); ABG PO2 167 mmHg (83-108); ABG TCO2 25 mmol/L (19-24); Allen Test Performed? Yes
[2022-05-10 18:12] LABS: Glucose,Whole Blood 143 mg/dL (70-110)
[2022-05-10] MEDS: ACETAMINOPHEN IV (For NPO) 1,000 MG in EMPTY BAG 1 BAG IVPB SCH ×2 (18:21→23:52)
[2022-05-10] MEDS: IPRATROPIUM-ALBUTEROL 3 ML NEB INHALATION SCH (18:55)
[2022-05-10 19:03] LABS: Glucose,Whole Blood 131 mg/dL (70-110)
[2022-05-10 19:13] LABS: Basophils % (A) 0 %; Eosinophils % (A) 0 %; HCT 29.9 % (39.0-53.0); HGB 10.2 gm/dL (13.0-17.5); Lymphocytes # (A) 0.6 k/uL (1.0-4.8); Lymphocytes % (A) 6 %; MCH 29.2 pg (25.0-35.0); MCV 85.8 fL (80.0-100.0); Mean Platelet Volume 9.4; Monocytes # (A) 0.6 k/uL (0-1.0); Monocytes % (A) 6 %; Neutrophils # (A) 9.1 k/uL (1.3-7.7); Neutrophils % (A) 87 %; Platelet Count 171 k/uL (150-450); RBC 3.48 m/uL (4.30-5.90); RDW 15.1 % (11.5-15.5); WBC 10.4 k/uL (3.8-10.6)
[2022-05-10 19:48] LABS: Glucose,Whole Blood 128 mg/dL (70-110)
[2022-05-10] MEDS ORDERED: HYDROmorphone 1 MG/ML 1 ML SYRINGE IVP STA (20:11)
[2022-05-10 21:07] LABS: Glucose,Whole Blood 114 mg/dL (70-110)
[2022-05-10] MEDS: PATIENT'S OWN (Mirabegron [Myrbetriq] 25 MG Tab.Er.24h) PO SCH (21:52)
[2022-05-10 22:08] LABS: Glucose,Whole Blood 117 mg/dL (70-110)
[2022-05-10 23:07] LABS: Glucose,Whole Blood 113 mg/dL (70-110)
[2022-05-11 00:02] LABS: Glucose,Whole Blood 123 mg/dL (70-110)
[2022-05-11 01:12] LABS: Glucose,Whole Blood 129 mg/dL (70-110)
[2022-05-11 02:09] LABS: Glucose,Whole Blood 130 mg/dL (70-110)
[2022-05-11 02:58] LABS: Glucose,Whole Blood 124 mg/dL (70-110)
[2022-05-11 03:11] LABS: Basophils % (A) 0 %; Eosinophils # (A) 0.1 k/uL (0-0.7); Eosinophils % (A) 1 %; HCT 31.3 % (39.0-53.0); HGB 10.1 gm/dL (13.0-17.5); Lymphocytes # (A) 0.6 k/uL (1.0-4.8); Lymphocytes % (A) 7 %; MCH 28.3 pg (25.0-35.0); MCHC 32.3 g/dL (31.0-37.0); MCV 87.6 fL (80.0-100.0); Mean Platelet Volume 7.7; Monocytes # (A) 0.4 k/uL (0-1.0); Monocytes % (A) 4 %; Neutrophils # (A) 8.2 k/uL (1.3-7.7); Neutrophils % (A) 87 %; Platelet Count 172 k/uL (150-450); RBC 3.57 m/uL (4.30-5.90); RDW 15.5 % (11.5-15.5); WBC 9.3 k/uL (3.8-10.6)
[2022-05-11 03:25] LABS: Ionized Calcium 4.9 mg/dL (4.5-5.3)
[2022-05-11 03:44] LABS: ALT 22 U/L (4-49); AST 34 U/L (17-59); African American GFR (CKD) >90 (>60 ml/min/1.73 sqM); Albumin 3.7 g/dL (3.5-5.0); Alkaline Phosphatase 43 U/L (38-126); Anion Gap 4 mmol/L; Blood Urea Nitrogen 18 mg/dL (9-20); Carbon Dioxide 25 mmol/L (22-30); Chloride 107 mmol/L (98-107); Glucose 115 mg/dL (74-99); Magnesium 2.2 mg/dL (1.6-2.3); Non-African American GFR(CKD) 87 (>60 ml/min/1.73 sqM); Potassium 4.3 mmol/L (3.5-5.1); Sodium 136 mmol/L (137-145); Total Bilirubin 0.7 mg/dL (0.2-1.3); Total Protein 5.6 g/dL (6.3-8.2)
[2022-05-11 04:09] LABS: Glucose,Whole Blood 123 mg/dL (70-110)
[2022-05-11 05:05] LABS: Glucose,Whole Blood 115 mg/dL (70-110)
[2022-05-11] MEDS: ALBUMIN HUMAN 5% 250 ML in EMPTY BAG 1 BAG IVPB PRN ×3 (06:16→21:51)
[2022-05-11 06:21] LABS: Glucose,Whole Blood 123 mg/dL (70-110)
[2022-05-11 06:53] LABS: Glucose,Whole Blood 122 mg/dL (70-110)
[2022-05-11] MEDS: IPRATROPIUM-ALBUTEROL 3 ML NEB INHALATION SCH ×4 (07:28→19:28)
--- NOTE | 2022-05-11 07:55 | XR ---
EXAMINATION TYPE: XR chest 1V portable DATE OF EXAM: 05/11/2022 6:20 AM COMPARISON: Chest radiographs from 05/10/2022. TECHNIQUE: XR chest 1V portable Portable AP radiograph of the chest. CLINICAL INDICATION:Male, 72 years old with history of Post Operative Cardiac Surgery; FINDINGS: Patient is rotated which limits evaluation. Lungs/Pleura: No focal consolidation. Left basilar subsegmental atelectasis. No sizable pneumothorax. Pulmonary vascularity: Unremarkable. Heart/mediastinum: Cardiomediastinal silhouette is stable. Musculoskeletal: No acute osseous pathology. Midline sternotomy wires are noted and stable. Other findings: None Lines/Tubes: Interval removal of endotracheal and nasogastric tubes. Stable position of right-sided [place]-Meghna cath eter with tip in the main pulmonary artery. Stable position of left chest tube and mediastinal draina ge catheter. IMPRESSION: 1. Left basilar subsegmental atelectasis. 2. Stable postsurgical changes. 3. Interval removal of endotracheal and nasogastric tube with remaining support lines and tubes kadebl e.
--- NOTE | 2022-05-11 08:19 | P.PN ---
Subjective Progress Note Date: 05/11/22 Principal diagnosis: Triple-vessel coronary artery disease. Past medical history significant for hypertension, hyperlipidemia, remote history of nicotine dependence and when she quit smoking over 20 years ago, peripheral vascular disease, history of prostate cancer, status post prostatectomy 10 years ago, osteoarthritis with history of bilateral knee replacements, daily marijuana use, heard, degenerative disc disease, peripheral neuropathy to his feet, bilateral carotid stenosis of 50- 69%, occasional EtOH use drinks 2-3 alcoholic drinks per week, obesity with a BMI of 35.9 kg meters squared and a family history of coronary artery disease with his dad having a history of coronary artery bypass grafting surgery. POD #1 off pump coronary artery bypass grafting 4, left internal thoracic artery to the left anterior descending coronary artery, radial artery from the aorta sequential to the ramus intermedius and obtuse marginal coronary artery #1, and a saphenous vein graft from aorta to the posterior descending coronary artery. Left atrial appendage ligation with a 35 mm Atriclip, endoscopic left radial artery and left greater saphenous vein harvest, graft flow measurements using the [employer] flowmeter and an intraoperative transesophageal echocardiogram performed by anesthesia. Postoperative acute blood loss anemia, expected given his preoperative hemoglobin of 12.0 and from hemodilution. The patient was seen and examined in follow-up today 05/11/2022 at his bedside in the intensive care unit. He is sitting up to the bedside chair, is awake, alert, oriented 3 and is in no acute distress. He was successfully extubated at 6:45 PM last evening, is currently on 3 L nasal cannula with oxygen saturations 94%. He is achieving 750 mL on his incentive spirometry with much encouragement. Denies any complaints of shortness of breath at this time although is complaining of some surgical type pain to his chest tube insertion sites, currently rating his pain 8 out of 10 on the pain scale. He remained hemodynamically stable, and is on no inotropic or pressor support. Right IJ Cordis and [place]-Meghna catheter remain in place with current hemodynamic showing a cardiac output 6.4, cardiac index 2.9, PA pressures 38/9, and CVP 3 mmHg. Mediastinal, left and right pleural chest tubes remain in place to low continuous wall suction -20 cm H2O. No air leak is present. Draining thin serosanguineous drainage. Laboratory results this morning showing a WBC count of 9.3, hemoglobin 10.1, hematocrit 31.3, platelets 172, sodium 136, potassium 4.3, BUN 18, creatinine 0.83, glucose 115, calcium 8.0, ionized calcium 4.9, magnesium 2.2, AST 34, ALT 22, and albumin 3.7. Chest x-ray was reviewed. Objective - Vital Signs Vital signs: Vital Signs Temp 98.6 F 05/11/22 06:00 Pulse 86 05/11/22 07:00 Resp 33 H 05/11/22 07:00 BP 151/88 05/10/22 14:00 Pulse Ox 94 L 05/11/22 07:00 FiO2 60 05/10/22 17:34 Intake & Output 05/10/22 05/11/22 05/11/22 18:59 06:59 18:59 Intake Total 7984.590 3388.600 Output Total 1795 1245 Balance -572.185 41.600 Weight 106.5 kg Intake: IV 1181.0 1005.0 ACETAMINOPHEN IV (For NPO 100 ) 1,000 mg In Empty Bag 1 bag @ 400 mls/hr IVPB Q6HR VERONIKA Rx#:[id number] Albumin Human 5% 250 ml 250 In Empty Bag 1 bag @ 250 mls/hr IVPB Q1HR PRN Rx#: [id number] CO/CI 150 220 Diltiazem 125 mg In 20 Sodium Chloride 0.9% 100 ml @ 5 MG/HR 5 mls/hr IV .Q24H VERONIKA Rx#:[id number] Lactated Ringers 1,000 ml 295 650 @ 50 mls/hr IV .Q20H VERONIKA Rx#:[id number] Magnesium Sulfate-D5w Pmx 200 1 gm In Dextrose/Water 1 100ml.bag @ 100 mls/hr IVPB Q1H VERONIKA Rx#: [id number] Nitroglycerin-D5w Pmx 50 9.0 18.0 mg In Dextrose/Water 1 250ml.bag @ 5 MCG/MIN 1.5 mls/hr IV .Q24H VERONIKA Rx#: [id number] ceFAZolin 2 gm In Sodium 50 Chloride 0.9% 50 ml @ 100 mls/hr IVPB Q8HR VERONIKA Rx# :[id number] pressure bag 54 117 Intake, IV Titration 41.815 31.600 Amount Clevidipine Butyrate 25 0.400 mg In Empty Bag 1 bag @ 1 MG/HR 2 mls/hr IV .Q24H VERONIKA Rx#:[id number] Insulin Regular 100 unit 2.643 5.825 In Sodium Chloride 0.9% 100 ml @ Per Protocol IV .Q0M [facility]ONIKA Rx#:[id number] Nitroglycerin-D5w Pmx 50 25.775 mg In Dextrose/Water 1 250ml.bag @ 5 MCG/MIN 1.5 mls/hr IV .Q24H [facility]ONIKA Rx#: [id number] propofoL 1,000 mg In 38.772 Empty Bag 1 bag @ Titrate IV .Q0M VERONIKA Rx#: [id number] Oral 250 Output: Chest Tube Drainage 810 Chest Tube Mediastinal 710 chest tube right and 100 left pleural Drainage 30 Left Wrist 30 Urine 295 405 Estimated Blood Loss 1500 Other: Voiding Method Indwelling Catheter Indwelling Catheter ABP, PAP, CO, CI - Last Documented Arterial Blood Pressure 134/48 Pulmonary Artery Pressure 40/11 Cardiac Output 6.4 Cardiac Index 2.9 - Exam CONSTITUTIONAL: Sitting up to the bedside chair in the intensive care unit, appears comfortable, cooperative, no apparent acute distress. HEENT: Neck is supple, no JVD, no lymphadenopathy. Right IJ Cordis and [place]- Meghna catheter in place and functioning. RESPIRATORY: Lungs sounds essentially clear throughout, diminished to his bilateral bases, left greater than right. Respirations are symmetrical and nonlabored. Currently on 3 L nasal cannula with oxygen saturations 94%. Able t o achieve 750 mL on his incentive spirometry. Strong cough. CARDIOVASCULAR: Regular rhythm and rate. S1 and S2 present, negative for S3, gallop or murmur. Sternum is stable. Palpable peripheral pulses bilaterally. No calf pain or tenderness noted. Heart hugger in place with patient demonstra ting appropriate use. Knee-high MOHINDER hose and sequential compression devices in place to his bilateral lower extremities. GASTROINTESTINAL: Abdomen soft, nontender, nondistended. Hypoactive bowel so unds present 4 quadrants. Tolerating diet. Passing flatus. No guarding or rigidity. GENITOURINARY: Nails present draining clear, yellow urine. Urine output 275 mL in the last 8 hours. INTEGUMENTARY: Skin is warm and dry with no evidence of clubbing or cyanosis. Midline sternal incision clean dry and well approximated, covered with dry intact dressing. Left lower extremity EVH sites well approximated without redness or drainage. Left arm radial artery harvest sites clean, dry and approx imated. No drainage or redness is present. NEUROLOGIC: Cranial nerves II through XII intact. No focal deficits. MUSKULOSKELETAL: Able to move all extremities, strength equal bilaterally, generalized weakness. PSYCHIATRIC: Alert and oriented to person place and time, appropriate affect, intact judgment and insight. INVASIVE LINES AND TUBES: Mediastinal chest tube left/right pleural chest tubes present and connected to low continuous wall suction, no air leaks present. Mediastinal chest tube with 510 mL of thin serosanguineous drainage overnight, 900 mL output since surgery. Left/right pleural chest tubes with 70 mL of thin serosanguineous drainage overnight, 1030 mL output since surgery. Right internal jugular [place]/Cordis, right radial arterial line present. Last CO 6.4, CI 2.9, PA 38/9 and CVP 3 mmHg. Left arm DIXON drain in place with scant thin serosanguineous drainage, 30 mL output since surgery. - Allied health notes Allied health notes reviewed: nursing - Labs CBC & Chem 7: 05/11/22 03:02 05/11/22 03:02 Labs: Abnormal Lab Results - Last 24 Hours (Table) 05/06/22 05/10/22 05/10/22 Range/Units 09:57 08:37 09:57 RBC (4.30-5.90) m/uL Hgb (13.0-17.5) gm/dL Hct (39.0-53.0) % Plt Count (150-450) k/uL Neutrophils # (1.3-7.7) k/uL Lymphocytes # (1.0-4.8) k/uL PT (9.0-12.0) sec INR (<1.2) ABG pCO2 47 H (35-45) mmHg ABG pO2 177 H 218 H (83-108) mmHg ABG HCO3 27 H 27 H (21-25) mmol/L ABG Total CO2 28 H 29 H (19-24) mmol/L ABG O2 Saturation 98.3 H 98.5 H (94-97) % ABG Hematocrit 32 L 32 L (34.0-46.0) % ABG Glucose 106 H 113 H (75-99) mg/dL Hemoglobin 10.6 L 10.5 L (13.0-17.5) gm/dL Sodium (137-145) mmol/L Chloride (98-107) mmol/L Glucose (74-99) mg/dL POC Glucose (mg/dL) (70-110) mg/dL Calcium (8.4-10.2) mg/dL Total Protein (6.3-8.2) g/dL Albumin (3.5-5.0) g/dL Arterial Blood Glucose 106 H 113 H (75-99) mg/dL Crossmatch See Detail 05/10/22 05/10/22 05/10/22 Range/Units 10:27 10:55 11:27 RBC (4.30-5.90) m/uL Hgb (13.0-17.5) gm/dL Hct (39.0-53.0) % Plt Count (150-450) k/uL Neutrophils # (1.3-7.7) k/uL Lymphocytes # (1.0-4.8) k/uL PT (9.0-12.0) sec INR (<1.2) ABG pCO2 (35-45) mmHg ABG pO2 231 H 220 H 199 H (83-108) mmHg ABG HCO3 26 H 26 H 26 H (21-25) mmol/L ABG Total CO2 28 H 28 H 27 H (19-24) mmol/L ABG O2 Saturation 98.8 H 98.7 H 98.7 H (94-97) % ABG Hematocrit 30 L 30 L 28 L (34.0-46.0) % ABG Glucose 108 H 106 H 105 H (75-99) mg/dL Hemoglobin 9.9 L 9.7 L 9.0 L (13.0-17.5) gm/dL Sodium (137-145) mmol/L Chloride (98-107) mmol/L Glucose (74-99) mg/dL POC Glucose (mg/dL) (70-110) mg/dL Calcium (8.4-10.2) mg/dL Total Protein (6.3-8.2) g/dL Albumin (3.5-5.0) g/dL Arterial Blood Glucose 108 H 106 H 105 H (75-99) mg/dL Crossmatch 05/10/22 05/10/22 05/10/22 Range/Units 13:14 13:14 13:14 RBC 3.14 L (4.30-5.90) m/uL Hgb 9.0 L D (13.0-17.5) gm/dL Hct 27.4 L (39.0-53.0) % Plt Count 133 L (150-450) k/uL Neutrophils # (1.3-7.7) k/uL Lymphocytes # (1.0-4.8) k/uL PT 12.6 H (9.0-12.0) sec INR 1.2 H (<1.2) ABG pCO2 (35-45) mmHg ABG pO2 (83-108) mmHg ABG HCO3 (21-25) mmol/L ABG Total CO2 (19-24) mmol/L ABG O2 Saturation (94-97) % ABG Hematocrit (34.0-46.0) % ABG Glucose (75-99) mg/dL Hemoglobin (13.0-17.5) gm/dL Sodium (137-145) mmol/L Chloride 109 H (98-107) mmol/L Glucose (74-99) mg/dL POC Glucose (mg/dL) (70-110) mg/dL Calcium 7.8 L (8.4-10.2) mg/dL Total Protein 4.9 L (6.3-8.2) g/dL Albumin 3.2 L (3.5-5.0) g/dL Arterial Blood Glucose (75-99) mg/dL Crossmatch 05/10/22 05/10/22 05/10/22 Range/Units 13:36 14:15 14:42 RBC (4.30-5.90) m/uL Hgb (13.0-17.5) gm/dL Hct (39.0-53.0) % Plt Count (150-450) k/uL Neutrophils # (1.3-7.7) k/uL Lymphocytes # (1.0-4.8) k/uL PT (9.0-12.0) sec INR (<1.2) ABG pCO2 (35-45) mmHg ABG pO2 284 H (83-108) mmHg ABG HCO3 (21-25) mmol/L ABG Total CO2 26 H (19-24) mmol/L ABG O2 Saturation 99.3 H (94-97) % ABG Hematocrit (34.0-46.0) % ABG Glucose (75-99) mg/dL Hemoglobin (13.0-17.5) gm/dL Sodium (137-145) mmol/L Chloride (98-107) mmol/L Glucose (74-99) mg/dL POC Glucose (mg/dL) 118 H 125 H (70-110) mg/dL Calcium (8.4-10.2) mg/dL Total Protein (6.3-8.2) g/dL Albumin (3.5-5.0) g/dL Arterial Blood Glucose (75-99) mg/dL Crossmatch 05/10/22 05/10/22 05/10/22 Range/Units 15:58 16:12 17:13 RBC 3.39 L (4.30-5.90) m/uL Hgb 9.6 L (13.0-17.5) gm/dL Hct 29.5 L (39.0-53.0) % Plt Count (150-450) k/uL Neutrophils # 8.4 H (1.3-7.7) k/uL Lymphocytes # (1.0-4.8) k/uL PT (9.0-12.0) sec INR (<1.2) ABG pCO2 (35-45) mmHg ABG pO2 (83-108) mmHg ABG HCO3 (21-25) mmol/L ABG Total CO2 (19-24) mmol/L ABG O2 Saturation (94-97) % ABG Hematocrit (34.0-46.0) % ABG Glucose (75-99) mg/dL Hemoglobin (13.0-17.5) gm/dL Sodium (137-145) mmol/L Chloride (98-107) mmol/L Glucose (74-99) mg/dL POC Glucose (mg/dL) 133 H 143 H (70-110) mg/dL Calcium (8.4-10.2) mg/dL Total Protein (6.3-8.2) g/dL Albumin (3.5-5.0) g/dL Arterial Blood Glucose (75-99) mg/dL Crossmatch 05/10/22 05/10/22 05/10/22 Range/Units 17:58 18:11 19:00 RBC 3.48 L (4.30-5.90) m/uL Hgb 10.2 L (13.0-17.5) gm/dL Hct 29.9 L (39.0-53.0) % Plt Count (150-450) k/uL Neutrophils # 9.1 H (1.3-7.7) k/uL Lymphocytes # 0.6 L (1.0-4.8) k/uL PT (9.0-12.0) sec INR (<1.2) ABG pCO2 (35-45) mmHg ABG pO2 167 H (83-108) mmHg ABG HCO3 (21-25) mmol/L ABG Total CO2 25 H (19-24) mmol/L ABG O2 Saturation 98.5 H (94-97) % ABG Hematocrit (34.0-46.0) % ABG Glucose (75-99) mg/dL Hemoglobin (13.0-17.5) gm/dL Sodium (137-145) mmol/L Chloride (98-107) mmol/L Glucose (74-99) mg/dL POC Glucose (mg/dL) 143 H (70-110) mg/dL Calcium (8.4-10.2) mg/dL Total Protein (6.3-8.2) g/dL Albumin (3.5-5.0) g/dL Arterial Blood Glucose (75-99) mg/dL Crossmatch 05/10/22 05/10/22 05/10/22 Range/Units 19:01 19:46 21:06 RBC (4.30-5.90) m/uL Hgb (13.0-17.5) gm/dL Hct (39.0-53.0) % Plt Count (150-450) k/uL Neutrophils # (1.3-7.7) k/uL Lymphocytes # (1.0-4.8) k/uL PT (9.0-12.0) sec INR (<1.2) ABG pCO2 (35-45) mmHg ABG pO2 (83-108) mmHg ABG HCO3 (21-25) mmol/L ABG Total CO2 (19-24) mmol/L ABG O2 Saturation (94-97) % ABG Hematocrit (34.0-46.0) % ABG Glucose (75-99) mg/dL Hemoglobin (13.0-17.5) gm/dL Sodium (137-145) mmol/L Chloride (98-107) mmol/L Glucose (74-99) mg/dL POC Glucose (mg/dL) 131 H 128 H 114 H (70-110) mg/dL Calcium (8.4-10.2) mg/dL Total Protein (6.3-8.2) g/dL Albumin (3.5-5.0) g/dL Arterial Blood Glucose (75-99) mg/dL Crossmatch 05/10/22 05/10/22 05/11/22 Range/Units 22:07 23:05 00:01 RBC (4.30-5.90) m/uL Hgb (13.0-17.5) gm/dL Hct (39.0-53.0) % Plt Count (150-450) k/uL Neutrophils # (1.3-7.7) k/uL Lymphocytes # (1.0-4.8) k/uL PT (9.0-12.0) sec INR (<1.2) ABG pCO2 (35-45) mmHg ABG pO2 (83-108) mmHg ABG HCO3 (21-25) mmol/L ABG Total CO2 (19-24) mmol/L ABG O2 Saturation (94-97) % ABG Hematocrit (34.0-46.0) % ABG Glucose (75-99) mg/dL Hemoglobin (13.0-17.5) gm/dL Sodium (137-145) mmol/L Chloride (98-107) mmol/L Glucose (74-99) mg/dL POC Glucose (mg/dL) 117 H 113 H 123 H (70-110) mg/dL Calcium (8.4-10.2) mg/dL Total Protein (6.3-8.2) g/dL Albumin (3.5-5.0) g/dL Arterial Blood Glucose (75-99) mg/dL Crossmatch 05/11/22 05/11/22 05/11/22 Range/Units 01:10 02:07 02:57 RBC (4.30-5.90) m/uL Hgb (13.0-17.5) gm/dL Hct (39.0-53.0) % Plt Count (150-450) k/uL Neutrophils # (1.3-7.7) k/uL Lymphocytes # (1.0-4.8) k/uL PT (9.0-12.0) sec INR (<1.2) ABG pCO2 (35-45) mmHg ABG pO2 (83-108) mmHg ABG HCO3 (21-25) mmol/L ABG Total CO2 (19-24) mmol/L ABG O2 Saturation (94-97) % ABG Hematocrit (34.0-46.0) % ABG Glucose (75-99) mg/dL Hemoglobin (13.0-17.5) gm/dL Sodium (137-145) mmol/L Chloride (98-107) mmol/L Glucose (74-99) mg/dL POC Glucose (mg/dL) 129 H 130 H 124 H (70-110) mg/dL Calcium (8.4-10.2) mg/dL Total Protein (6.3-8.2) g/dL Albumin (3.5-5.0) g/dL Arterial Blood Glucose (75-99) mg/dL Crossmatch 05/11/22 05/11/22 05/11/22 Range/Units 03:02 03:02 04:06 RBC 3.57 L (4.30-5.90) m/uL Hgb 10.1 L (13.0-17.5) gm/dL Hct 31.3 L (39.0-53.0) % Plt Count (150-450) k/uL Neutrophils # 8.2 H (1.3-7.7) k/uL Lymphocytes # 0.6 L (1.0-4.8) k/uL PT (9.0-12.0) sec INR (<1.2) ABG pCO2 (35-45) mmHg ABG pO2 (83-108) mmHg ABG HCO3 (21-25) mmol/L ABG Total CO2 (19-24) mmol/L ABG O2 Saturation (94-97) % ABG Hematocrit (34.0-46.0) % ABG Glucose (75-99) mg/dL Hemoglobin (13.0-17.5) gm/dL Sodium 136 L (137-145) mmol/L Chloride (98-107) mmol/L Glucose 115 H (74-99) mg/dL POC Glucose (mg/dL) 123 H (70-110) mg/dL Calcium 8.0 L (8.4-10.2) mg/dL Total Protein 5.6 L (6.3-8.2) g/dL Albumin (3.5-5.0) g/dL Arterial Blood Glucose (75-99) mg/dL Crossmatch 05/11/22 05/11/22 05/11/22 Range/Units 05:03 06:19 06:51 RBC (4.30-5.90) m/uL Hgb (13.0-17.5) gm/dL Hct (39.0-53.0) % Plt Count (150-450) k/uL Neutrophils # (1.3-7.7) k/uL Lymphocytes # (1.0-4.8) k/uL PT (9.0-12.0) sec INR (<1.2) ABG pCO2 (35-45) mmHg ABG pO2 (83-108) mmHg ABG HCO3 (21-25) mmol/L ABG Total CO2 (19-24) mmol/L ABG O2 Saturation (94-97) % ABG Hematocrit (34.0-46.0) % ABG Glucose (75-99) mg/dL Hemoglobin (13.0-17.5) gm/dL Sodium (137-145) mmol/L Chloride (98-107) mmol/L Glucose (74-99) mg/dL POC Glucose (mg/dL) 115 H 123 H 122 H (70-110) mg/dL Calcium (8.4-10.2) mg/dL Total Protein (6.3-8.2) g/dL Albumin (3.5-5.0) g/dL Arterial Blood Glucose (75-99) mg/dL Crossmatch - Imaging and Cardiology Chest x-ray: report reviewed, image reviewed Assessment and Plan Assessment: 1. Triple-vessel coronary artery disease, status post off-pump CABG 4 2. Postoperative acute blood loss anemia, expected given his preoperative hemoglobin of 12.0 and hemodilution 3. History of hypertension 4. Dyslipidemia, treated preoperative LDL 57.6, cholesterol 107 and triglycerides 53 5. Peripheral vascular disease, preoperative ABIs, right 0.89 and left 0.83 6. Bilateral carotid artery stenosis of 50-69% 7. Remote history of nicotine dependence quit smoking over 20 years ago 8. Daily marijuana use 9. Occasional EtOH use, drinks 2-3 Of colic drinks per week 10. Family history of coronary artery disease with his dad having coronary artery bypass grafting surgery 11. Peripheral neuropathy 12. Degenerative disc disease 13. GERD Plan: 1. Continue to maximize medical therapy with aspirin, statin, Plavix, and beta kamaljit. Will increase metoprolol tartrate 25 mg by mouth twice a day. 2. Wean O2 as tolerated. Encourage incentive spirometry use 10 times every h our while awake. Bronchodilators per pulmonology/critical care medicine. 3. Increase activity, ambulate as tolerated. PT/OT/cardiac rehab consulted. 4. Will monitor daily labs and chest x-rays. Electrolyte replacement per protocol. 5. GI/DVT prophylaxis. 6. Insulin management per internal medicine, patient is a nondiabetic with a preoperative hemoglobin A1c of 5.5%. 7. Pain control with current medication regimen. 8. Discontinue [place]. Connect Cordis to continuous CVP monitoring. 9. Continue mediastinal and left/right pleural chest tubes for another [address] to low continuous wall suction -20 cm H2O. 10. Continue Nails catheter for another 24 hours for strict accurate intake and output. Daily weights 11. Amlodipine 5 mg by mouth daily started for radial artery spasm prophylaxis, hold parameters in place. Please do not discontinue without checking with c ardiothoracic surgery service first. 12. Discontinue nitroglycerin drip. 13. The importance of risk modification including marijuana smoking cessation reinforced with the patient. 14. More recommendations to follow based on patient's clinical course. Time with Patient: Greater than 30
[2022-05-11] MEDS ORDERED: bisacodyL 10 MG SUPP RECTAL PRN (09:00)
[2022-05-11] MEDS ORDERED: MAGNESIUM HYDROXIDE 2,400 MG/10 ML CUP PO PRN (09:00)
[2022-05-11] MEDS ORDERED: amLODIPine 5 MG TAB PO SCH ×2 (09:00)
[2022-05-11] MEDS ORDERED: METOPROLOL TARTRATE 12.5 MG TAB PO SCH (09:00)
[2022-05-11] MEDS ORDERED: PANTOPRAZOLE 40 MG/10 ML VIAL IVP SCH (09:00)
[2022-05-11 09:01] LABS: Glucose,Whole Blood 147 mg/dL (70-110)
[2022-05-11] MEDS: HEPARIN SODIUM,PORCINE/PF 5,000 UNIT/0.5 ML SYRINGE SQ SCH ×3 (09:21→23:07)
[2022-05-11] MEDS: ATORVASTATIN 40 MG TAB PO SCH (09:21)
[2022-05-11] MEDS: METOPROLOL TARTRATE 25 MG TAB PO SCH ×2 (09:21→20:47)
[2022-05-11] MEDS: FOLIC ACID 1 MG TAB PO SCH (09:22)
[2022-05-11] MEDS: ASPIRIN 325 MG TAB PO SCH (09:22)
[2022-05-11] MEDS: MULTIVITAMINS, THERA 1 EACH TAB PO SCH (09:22)
[2022-05-11] MEDS: THIAMINE 100 MG TAB PO SCH (09:22)
[2022-05-11] MEDS: CLOPIDOGREL 75 MG TAB PO SCH (09:22)
[2022-05-11 10:11] LABS: Glucose,Whole Blood 140 mg/dL (70-110)
[2022-05-11] MEDS: LACTATED RINGERS 1,000 ML IV SCH (10:19)
--- NOTE | 2022-05-11 10:25 | P.CRDCN ---
History of Present Illness Consult date: 05/11/22 Chief complaint: Status post CABG History of present illness: The patient is a pleasant 72-year-old patient with a past medical history significant for hypertension and dyslipidemia who was seen by Dr. Dietrich recently for intermittent episodes of chest discomfort with exertion concerning for severe CAD. He underwent a heart catheterization and was found to have severe triple-vessel CAD was chronic total occlusion of the right coronary arter y. She also was found to have calcified right and left coronary systems. Left ventricular end-diastolic pressure was normal. Subsequently the patient was referred for open heart. Yesterday he underwent CABG time 3 with RIZO to LAD as well as radial artery to ramus and first obtuse marginal branch as well as SVG to PDA. This is postoperative patient day #1. The patient overall is doing well and he is stable. He is not on any vasopressors or inotrope at this point. Urine output has been marginal. Hemodynamically he is stable with he has been maintaining normal sinus mechanism. The chest x-ray was reviewed. Also his hemoglobin and kidney function have been stable. He is on dual antiplatelet therapy as well as a statin as well as beta kamaljit. From the cardiac vascular standpoint of view, we'll continue the current medical regimen. Continue monitor the kidney function and electrolytes and continue monitor the hemoglobin and performed daily chest x-ray for the next few days. Monitor the rhythm. The rhythm currently is sinus with first-degree AV block. Past Medical History Past Medical History: Cancer, GERD/Reflux, Hyperlipidemia, Hypertension, Osteoarthritis (OA) Additional Past Medical History / Comment(s): DDD /SCIATICA PAIN-sharda toes numb both feet, PROSTATE CANCER WITH SURGERY. recent shortness of breath with activity. leaking urine History of Any Multi-Drug Resistant Organisms: None Reported Past Surgical History: Heart Catheterization, Joint Replacement, Prostate Surgery Additional Past Surgical History / Comment(s): TOTAL RIGHT and left KNEE replacements. prostatectomy Past Anesthesia/Blood Transfusion Reactions: No Reported Reaction Smoking Status: Former smoker - Past Family History Mother Family Medical History: Cancer Additional Family Medical History / Comment(s): COLON CANCER Father Family Medical History: Coronary Artery Disease (CAD), Myocardial Infarction (PR) Medications and Allergies Home Medications Medication Instructions Recorded Confirmed Type Labetalol [Trandate] 100 mg PO BID 07/12/18 05/10/22 History Aspirin [Adult Low Dose Aspirin EC] 81 mg PO DAILY 07/03/20 05/10/22 History Losartan Potassium [Cozaar] 100 mg PO DAILY 07/03/20 05/10/22 History amLODIPine BESYLATE 5 mg PO BID 07/03/20 05/10/22 History hydroCHLOROthiazide 25 mg PO DAILY 07/03/20 05/10/22 History Atorvastatin Calcium 40 mg PO DAILY 04/23/22 05/10/22 History Isosorbide Mononitrate [Isosorbide 30 mg PO BID 04/23/22 05/10/22 History Mononitrate ER] Mirabegron [Myrbetriq] 25 mg PO HS 04/23/22 05/10/22 History Omeprazole Magnesium [PriLOSEC OTC] 20 mg PO HS 05/06/22 05/10/22 History Allergies Allergy/AdvReac Type Severity Reaction Status Date / Time No Known Allergies Allergy Verified 05/10/22 06:17 Physical Exam Vitals: Vital Signs Temp Pulse Resp BP Pulse Ox FiO2 05/11/22 07:43 82 05/11/22 07:28 86 05/11/22 07:00 86 33 H 94 L 05/11/22 06:30 81 21 93 L 05/11/22 06:00 98.6 F 82 34 H 87 L 05/11/22 05:30 82 14 92 L 05/11/22 05:00 78 18 94 L 05/11/22 04:30 76 17 93 L 05/11/22 04:00 98.6 F 75 17 93 L 05/11/22 03:30 75 16 88 L 05/11/22 03:00 79 28 H 92 L 05/11/22 02:30 75 18 93 L 05/11/22 02:00 77 23 93 L 05/11/22 01:30 74 16 94 L 05/11/22 01:00 75 19 91 L 05/11/22 00:30 74 16 93 L 05/11/22 00:00 98.6 F 81 20 92 L 05/10/22 23:30 76 22 92 L 05/10/22 23:00 74 22 91 L 05/10/22 22:30 76 20 92 L 05/10/22 22:00 75 31 H 91 L 05/10/22 21:30 75 24 93 L 05/10/22 21:00 75 21 92 L 05/10/22 20:30 76 22 92 L 05/10/22 20:15 82 16 92 L 05/10/22 20:00 98.6 F 82 16 91 L 05/10/22 19:45 78 26 H 91 L 05/10/22 19:30 78 25 H 92 L 05/10/22 19:15 78 28 H 91 L 05/10/22 19:08 75 05/10/22 19:00 37.1 F L 71 23 95 05/10/22 18:59 73 05/10/22 18:45 75 31 H 94 L 05/10/22 18:30 71 27 H 98 05/10/22 18:15 72 29 H 97 05/10/22 18:00 99.0 F 69 22 98 05/10/22 17:45 68 21 98 05/10/22 17:34 60 05/10/22 17:30 65 22 97 05/10/22 17:15 66 22 98 05/10/22 17:00 66 22 98 05/10/22 16:45 67 19 97 05/10/22 16:30 65 17 97 05/10/22 16:15 67 19 97 05/10/22 16:00 98.4 F 65 17 98 60 05/10/22 15:45 66 24 96 05/10/22 15:30 62 17 99 05/10/22 15:15 97.9 F 62 14 99 05/10/22 15:07 62 05/10/22 15:06 60 05/10/22 15:00 62 14 98 05/10/22 14:45 61 14 98 05/10/22 14:30 63 14 98 05/10/22 14:15 62 14 96 05/10/22 14:00 73 14 151/88 99 60 05/10/22 13:45 62 14 99 05/10/22 13:41 60 05/10/22 13:30 62 14 99 100 05/10/22 13:15 96.1 F L 65 14 100 05/10/22 13:10 100 05/10/22 13:00 100 Intake and Output 05/10/22 05/11/22 05/11/22 22:59 06:59 14:59 Intake Total 1473.785 809.726 0 Output Total 425 940 Balance 1048.785 -130.274 0 Intake: IV 1279.0 683.0 ACETAMINOPHEN IV (For NPO 100 ) 1,000 mg In Empty Bag 1 bag @ 400 mls/hr IVPB Q6HR [facility] Rx#:[id number] Albumin Human 5% 250 ml 250 In Empty Bag 1 bag @ 250 mls/hr IVPB Q1HR PRN Rx#: [id number] CO/CI 190 140 Diltiazem 125 mg In 10 Sodium Chloride 0.9% 100 ml @ 5 MG/HR 5 mls/hr IV .Q24H [facility] Rx#:[id number] Lactated Ringers 1,000 ml 395 450 @ 50 mls/hr IV .Q20H [facility] Rx#:[id number] Magnesium Sulfate-D5w Pmx 200 1 gm In Dextrose/Water 1 100ml.bag @ 100 mls/hr IVPB Q1H [facility] Rx#: [id number] Nitroglycerin-D5w Pmx 50 12.0 12.0 mg In Dextrose/Water 1 250ml.bag @ 5 MCG/MIN 1.5 mls/hr IV .Q24H [facility] Rx#: [id number] ceFAZolin 2 gm In Sodium 50 Chloride 0.9% 50 ml @ 100 mls/hr IVPB Q8HR [facility] Rx# :[id number] pressure bag 72 81 Intake, IV Titration 44.785 26.726 0 Amount Insulin Regular 100 unit 7.517 0.951 0 In Sodium Chloride 0.9% 100 ml @ Per Protocol IV .Q0M [facility] Rx#:[id number] Nitroglycerin-D5w Pmx 50 25.775 mg In Dextrose/Water 1 250ml.bag @ 5 MCG/MIN 1.5 mls/hr IV .Q24H [facility] Rx#: [id number] propofoL 1,000 mg In 37.268 Empty Bag 1 bag @ Titrate IV .Q0M [facility] Rx#: [id number] Oral 150 100 Output: Chest Tube Drainage 190 620 Chest Tube Mediastinal 170 540 chest tube right and 20 80 left pleural Drainage 30 Left Wrist 30 Urine 235 290 Other: Voiding Method Indwelling Catheter Indwelling Catheter Weight 106.5 kg ABP, PAP, CO, CI - Last 8 Hours Arterial Blood Pressure 134/48 Arterial Blood Pressure 125/45 Arterial Blood Pressure 123/77 Arterial Blood Pressure 149/54 Arterial Blood Pressure 141/50 Arterial Blood Pressure 138/46 Arterial Blood Pressure 130/46 Arterial Blood Pressure 113/39 Arterial Blood Pressure 123/44 Arterial Blood Pressure 135/50 Pulmonary Artery Pressure 40/11 Pulmonary Artery Pressure 24/4 Pulmonary Artery Pressure 25/5 Pulmonary Artery Pressure 38/10 Pulmonary Artery Pressure 37/11 Pulmonary Artery Pressure 35/9 Pulmonary Artery Pressure 38/11 Pulmonary Artery Pressure 37/10 Pulmonary Artery Pressure 37/12 Pulmonary Artery Pressure 38/13 Cardiac Output 6.4 Cardiac Output 7.7 Cardiac Index 2.9 Cardiac Index 3.5 - Constitutional General appearance: no acute distress - Respiratory Respiratory: bilateral: diminished - Cardiovascular Rhythm: regular Results 05/11/22 03:02 05/11/22 03:02 Cardiac Enzymes 05/10/22 05/11/22 Range/Units 13:14 03:02 AST 24 34 (17-59) U/L Coagulation 05/10/22 Range/Units 13:14 PT 12.6 H (9.0-12.0) sec APTT 28.9 (22.0-30.0) sec CBC 05/10/22 05/10/22 05/10/22 Range/Units 13:14 16:12 19:00 WBC 8.8 10.2 10.4 (3.8-10.6) k/uL RBC 3.14 L 3.39 L 3.48 L (4.30-5.90) m/uL Hgb 9.0 L D 9.6 L 10.2 L (13.0-17.5) gm/dL Hct 27.4 L 29.5 L 29.9 L (39.0-53.0) % Plt Count 133 L 175 171 (150-450) k/uL 05/11/22 Range/Units 03:02 WBC 9.3 (3.8-10.6) k/uL RBC 3.57 L (4.30-5.90) m/uL Hgb 10.1 L (13.0-17.5) gm/dL Hct 31.3 L (39.0-53.0) % Plt Count 172 (150-450) k/uL Comprehensive Metabolic Panel 05/10/22 05/10/22 05/11/22 Range/Units 13:14 16:12 03:02 Sodium 137 136 L (137-145) mmol/L Potassium 4.1 4.2 4.3 (3.5-5.1) mmol/L Chloride 109 H 107 (98-107) mmol/L Carbon Dioxide 24 25 (22-30) mmol/L BUN 17 18 (9-20) mg/dL Creatinine 0.79 0.83 (0.66-1.25) mg/dL Glucose 97 115 H (74-99) mg/dL Calcium 7.8 L 8.0 L (8.4-10.2) mg/dL AST 24 34 (17-59) U/L ALT 20 22 (4-49) U/L Alkaline Phosphatase 40 43 (38-126) U/L Total Protein 4.9 L 5.6 L (6.3-8.2) g/dL Albumin 3.2 L 3.7 (3.5-5.0) g/dL Current Medications Generic Name Dose Route Start Last Admin Trade Name Freq PRN Reason Stop Dose Admin Hydrocodone Bitart/Acetaminophen 2 each 05/11/22 06:00 Hydrocodone/Apap 5-325mg 1 Each Tab PO Q4HR PRN Severe Pain (Scale 7 to 10) Hydrocodone Bitart/Acetaminophen 1 each 05/11/22 06:00 Hydrocodone/Apap 5-325mg 1 Each Tab PO Q4HR PRN Moderate Pain (Scale 4 to 6) Albuterol/Ipratropium 3 ml 05/10/22 13:03 Ipratropium-Albuterol 3 Ml Neb INHALATION RT-Q2H PRN Shortness Of Breath Or Wheezing Albuterol/Ipratropium 3 ml 05/10/22 20:00 05/11/22 07:28 Ipratropium-Albuterol 3 Ml Neb INHALATION 3 ml RT-QID [facility] Administration Amlodipine Besylate 5 mg 05/11/22 09:00 05/11/22 09:22 Amlodipine 5 Mg Tab PO 5 mg DAILY [facility]A Administration Aspirin 325 mg 05/11/22 09:00 05/11/22 09:22 Aspirin 325 Mg Tab PO 325 mg DAILY [facility] Administration Atorvastatin Calcium 40 mg 05/11/22 09:00 05/11/22 09:21 Atorvastatin 40 Mg Tab PO 40 mg DAILY [facility] Administration Benzocaine/Menthol 1 each 05/10/22 13:03 Benzocaine/Menthol Lozeng 1 Each Lozenge MUCOUS MEM Q2H PRN Sore Throat Bisacodyl 10 mg 05/11/22 09:00 Bisacodyl 10 Mg Supp RECTAL DAILY PRN Constipation Clopidogrel Bisulfate 75 mg 05/11/22 09:00 05/11/22 09:22 Clopidogrel 75 Mg Tab PO 75 mg DAILY [facility] Administration Dextrose/Water 25 ml 05/10/22 13:03 Dextrose 50% Syringe 50 Ml IVP PER PROTOCOL PRN Hypoglycemia Protocol Dextrose/Water 50 ml 05/10/22 13:03 Dextrose 50% Syringe 50 Ml IVP PER PROTOCOL PRN Hypoglycemia Protocol Folic Acid 1 mg 05/11/22 09:00 05/11/22 09:22 Folic Acid 1 Mg Tab PO 1 mg DAILY [facility] Administration Heparin Sodium (Porcine) 5,000 unit 05/10/22 16:00 05/11/22 09:21 Heparin Sodium,Porcine/Pf 5,000 Unit/0.5 Ml Syringe SQ 5,000 unit Q8HR [facility] Administration Hydralazine HCl 10 mg 05/10/22 13:03 Hydralazine Hcl 20 Mg/Ml 1 Ml Vial IVP Q1H PRN Blood Pressure - High Amiodarone HCl 150 mg/ 103 mls @ 618 mls/hr 05/10/22 13:03 Dextrose/Water IV .Q10M PRN A.FIB/FLUTTER Protocol Amiodarone HCl 360 mg/ 207.2 mls @ 34.533 mls/hr 05/10/22 13:03 Dextrose/Water IV .Q6H PRN A.FIB/FLUTTER Protocol 1 MG/MIN Amiodarone HCl 450 mg/ 250 mls @ 16.667 mls/hr 05/10/22 13:03 Dextrose/Water IV .Q15H PRN A.FIB/FLUTTER Protocol 0.5 MG/MIN Albumin Human 250 ml/ IV 250 mls @ 250 mls/hr 05/10/22 13:03 05/11/22 06:16 Solution IVPB 05/12/22 13:04 250 mls/hr Q1HR PRN Administration For Volume Protocol Insulin Human Regular 100 unit 101 mls @ 0 mls/hr 05/10/22 13:03 05/11/22 09:07 / Sodium Chloride IV 1.5 units/hr .Q0M [facility] 1.515 mls/hr Titration Protocol Per Protocol Lactated Ringer's 1,000 mls @ 20 mls/hr 05/10/22 13:03 05/10/22 13:45 Lactated Ringers IV 50 mls/hr .Q24H [facility] Administration Magnesium Hydroxide 2,400 mg 05/11/22 09:00 Magnesium Hydroxide 2,400 Mg/10 Ml Cup PO BID PRN Constipation Metoclopramide HCl 10 mg 05/10/22 13:03 Metoclopramide 5 Mg/Ml 2 Ml Vial IVP Q4H PRN Nausea And Vomiting Metoprolol Tartrate 25 mg 05/11/22 09:00 05/11/22 09:21 Metoprolol Tartrate 25 Mg Tab PO 25 mg BID [facility] Administration Miscellaneous Information 1 each 05/10/22 13:03 Potassium Replacement Protocol 1 Each Misc MISCELLANE DAILY PRN Per Protocol Protocol Miscellaneous Information 1 each 05/10/22 13:03 Magnesium Replacement Protocol 1 Each Misc MISCELLANE DAILY PRN Per Protocol Protocol Multivitamins 1 each 05/11/22 09:00 05/11/22 09:22 Multivitamins, Thera 1 Each Tab PO 1 each DAILY [facility] Administration Patient's Own ( 25 mg 05/10/22 21:00 05/10/22 21:52 Mirabegron [ PO Not Given Myrbetriq] 25 Mg Tab HS [facility]ON[facility]A .Er.24h) Ondansetron HCl 4 mg 05/10/22 13:03 Ondansetron 4 Mg/2 Ml Vial IVP Q6HR PRN Nausea And Vomiting Pantoprazole Sodium 40 mg 05/12/22 07:30 Pantoprazole 40 Mg Tablet PO AC-BRKFST [facility]ON[facility] Senna/Docusate Sodium 2 each 05/11/22 21:00 Sennosides-Docusate Sodium 1 Each Tab PO HS [facility] Sodium Chloride 10 ml 05/10/22 21:00 05/11/22 09:22 Sodium Chloride 0.9% Flush 10 Ml Syringe IV 10 ml BID [facility] Administration Thiamine HCl 100 mg 05/11/22 09:00 05/11/22 09:22 Thiamine 100 Mg Tab PO 100 mg DAILY [facility] Administration Intake and Output 05/10/22 05/11/22 05/11/22 22:59 06:59 14:59 Intake Total 1473.785 809.726 0 Output Total 425 940 Balance 1048.785 -130.274 0 Intake: IV 1279.0 683.0 ACETAMINOPHEN IV (For NPO 100 ) 1,000 mg In Empty Bag 1 bag @ 400 mls/hr IVPB Q6HR [facility] Rx#:[id number] Albumin Human 5% 250 ml 250 In Empty Bag 1 bag @ 250 mls/hr IVPB Q1HR PRN Rx#: [id number] CO/CI 190 140 Diltiazem 125 mg In 10 Sodium Chloride 0.9% 100 ml @ 5 MG/HR 5 mls/hr IV .Q24H [facility] Rx#:[id number] Lactated Ringers 1,000 ml 395 450 @ 50 mls/hr IV .Q20H [facility] Rx#:[id number] Magnesium Sulfate-D5w Pmx 200 1 gm In Dextrose/Water 1 100ml.bag @ 100 mls/hr IVPB Q1H [facility] Rx#: [id number] Nitroglycerin-D5w Pmx 50 12.0 12.0 mg In Dextrose/Water 1 250ml.bag @ 5 MCG/MIN 1.5 mls/hr IV .Q24H [facility] Rx#: [id number] ceFAZolin 2 gm In Sodium 50 Chloride 0.9% 50 ml @ 100 mls/hr IVPB Q8HR [facility] Rx# :[id number] pressure bag 72 81 Intake, IV Titration 44.785 26.726 0 Amount Insulin Regular 100 unit 7.517 0.951 0 In Sodium Chloride 0.9% 100 ml @ Per Protocol IV .Q0M [facility] Rx#:[id number] Nitroglycerin-D5w Pmx 50 25.775 mg In Dextrose/Water 1 250ml.bag @ 5 MCG/MIN 1.5 mls/hr IV .Q24H [facility] Rx#: [id number] propofoL 1,000 mg In 37.268 Empty Bag 1 bag @ Titrate IV .Q0M [facility] Rx#: [id number] Oral 150 100 Output: Chest Tube Drainage 190 620 Chest Tube Mediastinal 170 540 chest tube right and 20 80 left pleural Drainage 30 Left Wrist 30 Urine 235 290 Other: Voiding Method Indwelling Catheter Indwelling Catheter Weight 106.5 kg 05/11/22 03:02 05/11/22 03:02 Assessment and Plan Assessment: Assessment CAD status post CABG Hypertension Dyslipidemia Plan Continue the current medical regimen Continue dual antiplatelet therapy Continue statin Monitor the urine output Monitor the kidney function and electrolytes Follow-up with the patient
--- NOTE | 2022-05-11 10:39 | P.PN ---
Subjective Progress Note Date: 05/11/22 Principal diagnosis: CABG. Pulmonary/critical care consult dated 05/10/2022. 72-year-old male who follows up with Dr. Linares as a primary, and Dr. Dietrich for cardiology. The patient has a history of hypertension, hyperlipidemia, and previous history of tobacco use. Also, has history of peripheral vascular disease, prostate cancer with previous prostatectomy, osteoarthritis, bilateral knee replacements, daily marijuana use, GERD, degenerative disc disease, peripheral neuropathy, carotid artery stenosis, and occasional alcohol use. I'm asked to see the patient today for ICU management and mechanical ventilation management. The patient had a alcohol four-vessel bypass, including RIZO to LAD, and saphenous vein graft to PDA among other bypasses. The patient also had a left atrial appendage ligation, and intraoperative transesophageal echocardiogram. The patient is currently on the ventilator, with settings of volume assist control, rate 14, tidal volume 550, FiO2 100%, PEEP of 10. Gases are pending. He is on Cardizem 5 mg an hour, nitroglycerin at 5 mcg/m, propofol at 10 mcg/kg/m, and lactated Ringer's at 50 mL an hour. Chest x-ray shows some operative changes as well as some mild bibasilar atelectasis. Labs include a white count 8.8, hemoglobin 9, hematocrit 27.4, and a platelet count of 133,000. Blood gases show pO2 of 284, pCO2 45, and a pH of 7.36. Sodium 137, potassium 4.1, chlorides 109, CO2 24, with a normal BUN and creatinine. Progress note dated 05/11/2022. 72-year-old male who I saw yesterday in consultation. He status post four- vessel bypass grafting. He he had the procedure off pump. He was extubated about 5.5 hours after leaving the operating room. Currently, he's on 3 L. Is getting lactated Ringer's at 50 mL an hour. He is also getting insulin at 1 unit an hour. Labs, x-rays, medications are all reviewed. White count 9.3, hemoglobin 10.1, hematocrit 31.3, and platelet count 172,000. Glucose is 140. Sodium 136, potassium 4.3, chlorides 107, CO2 25, BUN 18, and creatinine 0.83. Chest x-ray shows postsurgical changes, and bilateral atelectasis. Objective - Vital Signs Vital signs: Vital Signs Temp 98.6 F 05/11/22 06:00 Pulse 82 05/11/22 07:43 Resp 33 H 05/11/22 07:00 BP 151/88 05/10/22 14:00 Pulse Ox 94 L 05/11/22 07:00 FiO2 60 05/10/22 17:34 Intake & Output 05/10/22 05/11/22 05/11/22 18:59 06:59 18:59 Intake Total 8355.757 5884.600 1.843 Output Total 1795 1245 Balance -572.185 41.600 1.843 Weight 106.5 kg Intake: IV 1181.0 1005.0 ACETAMINOPHEN IV (For NPO 100 ) 1,000 mg In Empty Bag 1 bag @ 400 mls/hr IVPB Q6HR [facility] Rx#:[id number] Albumin Human 5% 250 ml 250 In Empty Bag 1 bag @ 250 mls/hr IVPB Q1HR PRN Rx#: [id number] CO/CI 150 220 Diltiazem 125 mg In 20 Sodium Chloride 0.9% 100 ml @ 5 MG/HR 5 mls/hr IV .Q24H [facility] Rx#:[id number] Lactated Ringers 1,000 ml 295 650 @ 50 mls/hr IV .Q20H [facility] Rx#:[id number] Magnesium Sulfate-D5w Pmx 200 1 gm In Dextrose/Water 1 100ml.bag @ 100 mls/hr IVPB Q1H [facility] Rx#: [id number] Nitroglycerin-D5w Pmx 50 9.0 18.0 mg In Dextrose/Water 1 250ml.bag @ 5 MCG/MIN 1.5 mls/hr IV .Q24H [facility] Rx#: [id number] ceFAZolin 2 gm In Sodium 50 Chloride 0.9% 50 ml @ 100 mls/hr IVPB Q8HR [facility] Rx# :[id number] pressure bag 54 117 Intake, IV Titration 41.815 31.600 1.843 Amount Clevidipine Butyrate 25 0.400 mg In Empty Bag 1 bag @ 1 MG/HR 2 mls/hr IV .Q24H [facility] Rx#:[id number] Insulin Regular 100 unit 2.643 5.825 1.843 In Sodium Chloride 0.9% 100 ml @ Per Protocol IV .Q0M [facility] Rx#:[id number] Nitroglycerin-D5w Pmx 50 25.775 mg In Dextrose/Water 1 250ml.bag @ 5 MCG/MIN 1.5 mls/hr IV .Q24H [facility] Rx#: [id number] propofoL 1,000 mg In 38.772 Empty Bag 1 bag @ Titrate IV .Q0M [facility] Rx#: [id number] Oral 250 Output: Chest Tube Drainage 810 Chest Tube Mediastinal 710 chest tube right and 100 left pleural Drainage 30 Left Wrist 30 Urine 295 405 Estimated Blood Loss 1500 Other: Voiding Method Indwelling Catheter Indwelling Catheter ABP, PAP, CO, CI - Last Documented Arterial Blood Pressure 134/48 Pulmonary Artery Pressure 40/11 Cardiac Output 6.4 Cardiac Index 2.9 - Exam No acute distress, extubated, on 3 L nasal cannula. No respiratory symptoms at all. HEENT examination is grossly unremarkable. Neck supple. Full range of motion. No adenopathy thyromegaly or neck vein distention. Cardiovascular examination reveals regular rhythm rate. S1-S2 normal. No S3 or S4. No discernible murmur noted. Heart rate 82 bpm. Lungs reveal clear breath sounds. Breath sounds are equal bilaterally. No adventitious lung sounds including wheezes rhonchi or crackles. 3 L saturation 94%. Abdomen soft without auscultated bowel sounds. No masses. Extremities are intact. No cyanosis clubbing or edema. Skin is without rash or lesion. Neurologic examination is brief but nonfocal. - Labs CBC & Chem 7: 05/11/22 03:02 05/11/22 03:02 Labs: Abnormal Lab Results - Last 24 Hours (Table) 05/06/22 05/10/22 05/10/22 Range/Units 09:57 08:37 09:57 RBC (4.30-5.90) m/uL Hgb (13.0-17.5) gm/dL Hct (39.0-53.0) % Plt Count (150-450) k/uL Neutrophils # (1.3-7.7) k/uL Lymphocytes # (1.0-4.8) k/uL PT (9.0-12.0) sec INR (<1.2) ABG pCO2 47 H (35-45) mmHg ABG pO2 177 H 218 H (83-108) mmHg ABG HCO3 27 H 27 H (21-25) mmol/L ABG Total CO2 28 H 29 H (19-24) mmol/L ABG O2 Saturation 98.3 H 98.5 H (94-97) % ABG Hematocrit 32 L 32 L (34.0-46.0) % ABG Glucose 106 H 113 H (75-99) mg/dL Hemoglobin 10.6 L 10.5 L (13.0-17.5) gm/dL Sodium (137-145) mmol/L Chloride (98-107) mmol/L Glucose (74-99) mg/dL POC Glucose (mg/dL) (70-110) mg/dL Calcium (8.4-10.2) mg/dL Total Protein (6.3-8.2) g/dL Albumin (3.5-5.0) g/dL Arterial Blood Glucose 106 H 113 H (75-99) mg/dL Crossmatch See Detail 05/10/22 05/10/22 05/10/22 Range/Units 10:27 10:55 11:27 RBC (4.30-5.90) m/uL Hgb (13.0-17.5) gm/dL Hct (39.0-53.0) % Plt Count (150-450) k/uL Neutrophils # (1.3-7.7) k/uL Lymphocytes # (1.0-4.8) k/uL PT (9.0-12.0) sec INR (<1.2) ABG pCO2 (35-45) mmHg ABG pO2 231 H 220 H 199 H (83-108) mmHg ABG HCO3 26 H 26 H 26 H (21-25) mmol/L ABG Total CO2 28 H 28 H 27 H (19-24) mmol/L ABG O2 Saturation 98.8 H 98.7 H 98.7 H (94-97) % ABG Hematocrit 30 L 30 L 28 L (34.0-46.0) % ABG Glucose 108 H 106 H 105 H (75-99) mg/dL Hemoglobin 9.9 L 9.7 L 9.0 L (13.0-17.5) gm/dL Sodium (137-145) mmol/L Chloride (98-107) mmol/L Glucose (74-99) mg/dL POC Glucose (mg/dL) (70-110) mg/dL Calcium (8.4-10.2) mg/dL Total Protein (6.3-8.2) g/dL Albumin (3.5-5.0) g/dL Arterial Blood Glucose 108 H 106 H 105 H (75-99) mg/dL Crossmatch 05/10/22 05/10/22 05/10/22 Range/Units 13:14 13:14 13:14 RBC 3.14 L (4.30-5.90) m/uL Hgb 9.0 L D (13.0-17.5) gm/dL Hct 27.4 L (39.0-53.0) % Plt Count 133 L (150-450) k/uL Neutrophils # (1.3-7.7) k/uL Lymphocytes # (1.0-4.8) k/uL PT 12.6 H (9.0-12.0) sec INR 1.2 H (<1.2) ABG pCO2 (35-45) mmHg ABG pO2 (83-108) mmHg ABG HCO3 (21-25) mmol/L ABG Total CO2 (19-24) mmol/L ABG O2 Saturation (94-97) % ABG Hematocrit (34.0-46.0) % ABG Glucose (75-99) mg/dL Hemoglobin (13.0-17.5) gm/dL Sodium (137-145) mmol/L Chloride 109 H (98-107) mmol/L Glucose (74-99) mg/dL POC Glucose (mg/dL) (70-110) mg/dL Calcium 7.8 L (8.4-10.2) mg/dL Total Protein 4.9 L (6.3-8.2) g/dL Albumin 3.2 L (3.5-5.0) g/dL Arterial Blood Glucose (75-99) mg/dL Crossmatch 05/10/22 05/10/22 05/10/22 Range/Units 13:36 14:15 14:42 RBC (4.30-5.90) m/uL Hgb (13.0-17.5) gm/dL Hct (39.0-53.0) % Plt Count (150-450) k/uL Neutrophils # (1.3-7.7) k/uL Lymphocytes # (1.0-4.8) k/uL PT (9.0-12.0) sec INR (<1.2) ABG pCO2 (35-45) mmHg ABG pO2 284 H (83-108) mmHg ABG HCO3 (21-25) mmol/L ABG Total CO2 26 H (19-24) mmol/L ABG O2 Saturation 99.3 H (94-97) % ABG Hematocrit (34.0-46.0) % ABG Glucose (75-99) mg/dL Hemoglobin (13.0-17.5) gm/dL Sodium (137-145) mmol/L Chloride (98-107) mmol/L Glucose (74-99) mg/dL POC Glucose (mg/dL) 118 H 125 H (70-110) mg/dL Calcium (8.4-10.2) mg/dL Total Protein (6.3-8.2) g/dL Albumin (3.5-5.0) g/dL Arterial Blood Glucose (75-99) mg/dL Crossmatch 05/10/22 05/10/22 05/10/22 Range/Units 15:58 16:12 17:13 RBC 3.39 L (4.30-5.90) m/uL Hgb 9.6 L (13.0-17.5) gm/dL Hct 29.5 L (39.0-53.0) % Plt Count (150-450) k/uL Neutrophils # 8.4 H (1.3-7.7) k/uL Lymphocytes # (1.0-4.8) k/uL PT (9.0-12.0) sec INR (<1.2) ABG pCO2 (35-45) mmHg ABG pO2 (83-108) mmHg ABG HCO3 (21-25) mmol/L ABG Total CO2 (19-24) mmol/L ABG O2 Saturation (94-97) % ABG Hematocrit (34.0-46.0) % ABG Glucose (75-99) mg/dL Hemoglobin (13.0-17.5) gm/dL Sodium (137-145) mmol/L Chloride (98-107) mmol/L Glucose (74-99) mg/dL POC Glucose (mg/dL) 133 H 143 H (70-110) mg/dL Calcium (8.4-10.2) mg/dL Total Protein (6.3-8.2) g/dL Albumin (3.5-5.0) g/dL Arterial Blood Glucose (75-99) mg/dL Crossmatch 05/10/22 05/10/22 05/10/22 Range/Units 17:58 18:11 19:00 RBC 3.48 L (4.30-5.90) m/uL Hgb 10.2 L (13.0-17.5) gm/dL Hct 29.9 L (39.0-53.0) % Plt Count (150-450) k/uL Neutrophils # 9.1 H (1.3-7.7) k/uL Lymphocytes # 0.6 L (1.0-4.8) k/uL PT (9.0-12.0) sec INR (<1.2) ABG pCO2 (35-45) mmHg ABG pO2 167 H (83-108) mmHg ABG HCO3 (21-25) mmol/L ABG Total CO2 25 H (19-24) mmol/L ABG O2 Saturation 98.5 H (94-97) % ABG Hematocrit (34.0-46.0) % ABG Glucose (75-99) mg/dL Hemoglobin (13.0-17.5) gm/dL Sodium (137-145) mmol/L Chloride (98-107) mmol/L Glucose (74-99) mg/dL POC Glucose (mg/dL) 143 H (70-110) mg/dL Calcium (8.4-10.2) mg/dL Total Protein (6.3-8.2) g/dL Albumin (3.5-5.0) g/dL Arterial Blood Glucose (75-99) mg/dL Crossmatch 05/10/22 05/10/22 05/10/22 Range/Units 19:01 19:46 21:06 RBC (4.30-5.90) m/uL Hgb (13.0-17.5) gm/dL Hct (39.0-53.0) % Plt Count (150-450) k/uL Neutrophils # (1.3-7.7) k/uL Lymphocytes # (1.0-4.8) k/uL PT (9.0-12.0) sec INR (<1.2) ABG pCO2 (35-45) mmHg ABG pO2 (83-108) mmHg ABG HCO3 (21-25) mmol/L ABG Total CO2 (19-24) mmol/L ABG O2 Saturation (94-97) % ABG Hematocrit (34.0-46.0) % ABG Glucose (75-99) mg/dL Hemoglobin (13.0-17.5) gm/dL Sodium (137-145) mmol/L Chloride (98-107) mmol/L Glucose (74-99) mg/dL POC Glucose (mg/dL) 131 H 128 H 114 H (70-110) mg/dL Calcium (8.4-10.2) mg/dL Total Protein (6.3-8.2) g/dL Albumin (3.5-5.0) g/dL Arterial Blood Glucose (75-99) mg/dL Crossmatch 05/10/22 05/10/22 05/11/22 Range/Units 22:07 23:05 00:01 RBC (4.30-5.90) m/uL Hgb (13.0-17.5) gm/dL Hct (39.0-53.0) % Plt Count (150-450) k/uL Neutrophils # (1.3-7.7) k/uL Lymphocytes # (1.0-4.8) k/uL PT (9.0-12.0) sec INR (<1.2) ABG pCO2 (35-45) mmHg ABG pO2 (83-108) mmHg ABG HCO3 (21-25) mmol/L ABG Total CO2 (19-24) mmol/L ABG O2 Saturation (94-97) % ABG Hematocrit (34.0-46.0) % ABG Glucose (75-99) mg/dL Hemoglobin (13.0-17.5) gm/dL Sodium (137-145) mmol/L Chloride (98-107) mmol/L Glucose (74-99) mg/dL POC Glucose (mg/dL) 117 H 113 H 123 H (70-110) mg/dL Calcium (8.4-10.2) mg/dL Total Protein (6.3-8.2) g/dL Albumin (3.5-5.0) g/dL Arterial Blood Glucose (75-99) mg/dL Crossmatch 05/11/22 05/11/22 05/11/22 Range/Units 01:10 02:07 02:57 RBC (4.30-5.90) m/uL Hgb (13.0-17.5) gm/dL Hct (39.0-53.0) % Plt Count (150-450) k/uL Neutrophils # (1.3-7.7) k/uL Lymphocytes # (1.0-4.8) k/uL PT (9.0-12.0) sec INR (<1.2) ABG pCO2 (35-45) mmHg ABG pO2 (83-108) mmHg ABG HCO3 (21-25) mmol/L ABG Total CO2 (19-24) mmol/L ABG O2 Saturation (94-97) % ABG Hematocrit (34.0-46.0) % ABG Glucose (75-99) mg/dL Hemoglobin (13.0-17.5) gm/dL Sodium (137-145) mmol/L Chloride (98-107) mmol/L Glucose (74-99) mg/dL POC Glucose (mg/dL) 129 H 130 H 124 H (70-110) mg/dL Calcium (8.4-10.2) mg/dL Total Protein (6.3-8.2) g/dL Albumin (3.5-5.0) g/dL Arterial Blood Glucose (75-99) mg/dL Crossmatch 05/11/22 05/11/22 05/11/22 Range/Units 03:02 03:02 04:06 RBC 3.57 L (4.30-5.90) m/uL Hgb 10.1 L (13.0-17.5) gm/dL Hct 31.3 L (39.0-53.0) % Plt Count (150-450) k/uL Neutrophils # 8.2 H (1.3-7.7) k/uL Lymphocytes # 0.6 L (1.0-4.8) k/uL PT (9.0-12.0) sec INR (<1.2) ABG pCO2 (35-45) mmHg ABG pO2 (83-108) mmHg ABG HCO3 (21-25) mmol/L ABG Total CO2 (19-24) mmol/L ABG O2 Saturation (94-97) % ABG Hematocrit (34.0-46.0) % ABG Glucose (75-99) mg/dL Hemoglobin (13.0-17.5) gm/dL Sodium 136 L (137-145) mmol/L Chloride (98-107) mmol/L Glucose 115 H (74-99) mg/dL POC Glucose (mg/dL) 123 H (70-110) mg/dL Calcium 8.0 L (8.4-10.2) mg/dL Total Protein 5.6 L (6.3-8.2) g/dL Albumin (3.5-5.0) g/dL Arterial Blood Glucose (75-99) mg/dL Crossmatch 05/11/22 05/11/22 05/11/22 Range/Units 05:03 06:19 06:51 RBC (4.30-5.90) m/uL Hgb (13.0-17.5) gm/dL Hct (39.0-53.0) % Plt Count (150-450) k/uL Neutrophils # (1.3-7.7) k/uL Lymphocytes # (1.0-4.8) k/uL PT (9.0-12.0) sec INR (<1.2) ABG pCO2 (35-45) mmHg ABG pO2 (83-108) mmHg ABG HCO3 (21-25) mmol/L ABG Total CO2 (19-24) mmol/L ABG O2 Saturation (94-97) % ABG Hematocrit (34.0-46.0) % ABG Glucose (75-99) mg/dL Hemoglobin (13.0-17.5) gm/dL Sodium (137-145) mmol/L Chloride (98-107) mmol/L Glucose (74-99) mg/dL POC Glucose (mg/dL) 115 H 123 H 122 H (70-110) mg/dL Calcium (8.4-10.2) mg/dL Total Protein (6.3-8.2) g/dL Albumin (3.5-5.0) g/dL Arterial Blood Glucose (75-99) mg/dL Crossmatch 05/11/22 05/11/22 Range/Units 09:00 10:11 RBC (4.30-5.90) m/uL Hgb (13.0-17.5) gm/dL Hct (39.0-53.0) % Plt Count (150-450) k/uL Neutrophils # (1.3-7.7) k/uL Lymphocytes # (1.0-4.8) k/uL PT (9.0-12.0) sec INR (<1.2) ABG pCO2 (35-45) mmHg ABG pO2 (83-108) mmHg ABG HCO3 (21-25) mmol/L ABG Total CO2 (19-24) mmol/L ABG O2 Saturation (94-97) % ABG Hematocrit (34.0-46.0) % ABG Glucose (75-99) mg/dL Hemoglobin (13.0-17.5) gm/dL Sodium (137-145) mmol/L Chloride (98-107) mmol/L Glucose (74-99) mg/dL POC Glucose (mg/dL) 147 H 140 H (70-110) mg/dL Calcium (8.4-10.2) mg/dL Total Protein (6.3-8.2) g/dL Albumin (3.5-5.0) g/dL Arterial Blood Glucose (75-99) mg/dL Crossmatch Assessment and Plan Assessment: Status post off-pump four-vessel bypass grafting for CAD, postoperative day #1. Routine postoperative ventilator management. History of hypertension. History of dyslipidemia. Previous history of tobacco use. Peripheral vascular disease. Prostate cancer, status post prostatectomy. Osteoarthritis. Gastroesophageal reflux disease. Degenerative disc disease. Peripheral neuropathy. Carotid artery stenosis. Plan: Plan dated 05/10/2022. The patient appears be doing relatively well. Initial blood gases excellent, and the FiO2 can be reduced. We will continue to follow make recommendations along the way. I suspect the patient will be an early extubation patient, typically less than 6 hours. Additional recommendations and suggestions are forthcoming. We will continue to follow and make suggestions along the way. Plan dated 05/11/2022. The patient was extubated in a timely fashion, less than 6 hours after leaving the operating room. Currently he is getting oxygen at 3 L. He is awake and there. Getting lactated Ringer's at 50 mL an hour. He is on insulin drip at 1 unit an hour. Labs, x-rays, and medications are all reviewed. We will continue to follow the patient and make recommendations along the way. Time with Patient: Greater than 30
[2022-05-11 10:46] VITALS: BMI 35.6
[2022-05-11 11:10] LABS: Glucose,Whole Blood 124 mg/dL (70-110)
--- NOTE | 2022-05-11 12:01 | P.CONS ---
History of Present Illness - Reason for Consult Consult date: 05/11/22 - History of Present Illness History of present illness; patient is a pleasant 72-year-old gentleman with a past medical history significant for hypertension, coronary artery disease and dyslipidemia who recently underwent a heart catheterization and was found to have severe triple-vessel CAD with chronic total occlusion of the right coronary artery. Patient also was found to have calcified right and left coronary syste ms. Subsequently the patient was referred for open heart. Patient underwent CABG time 3 with RIZO to LAD as well as radial artery to ramus and first obtuse marginal branch as well as SVG to PDA on 05/10. Patient currently extubated and sitting upright in the chair. The patient overall is doing well and he is stable. He is not on any vasopressors or inotrope at this point. Patient is currently being managed by the ICU team, medicine team has been consulted for medical management REVIEW OF SYSTEMS: CONSTITUTIONAL: No fever, no malaise, no fatigue. HEENT: No recent visual problems or hearing problems. Denied any sore throat. CARDIOVASCULAR: Complaining of some chest pain at the surgery site, no orthopnea, PND, no palpitations, no syncope. PULMONARY: no cough, no hemoptysis. GASTROINTESTINAL: No diarrhea, no nausea, no vomiting, no abdominal pain. NEUROLOGICAL: No headaches, no weakness, no numbness. HEMATOLOGICAL: Denies any bleeding or petechiae. GENITOURINARY: Denies any burning micturition, frequency, or urgency. MUSCULOSKELETAL/RHEUMATOLOGICAL: Denies any joint pain, swelling, or any muscle pain. ENDOCRINE: Denies any polyuria or polydipsia. The rest of the 14-point review of systems is negative. PHYSICAL EXAMINATION: GENERAL: The patient is alert and oriented x3, not in any acute distress. Well developed, well nourished. HEENT: Pupils are round and equally reacting to light. EOMI. No scleral icterus. No conjunctival pallor. Normocephalic, atraumatic. No pharyngeal erythema. No thyromegaly. CARDIOVASCULAR: S1 and S2 present. No murmurs, rubs, or gallops. PULMONARY: Chest is clear to auscultation, no wheezing or crackles. Chest tubes seen. Sternotomy incision seen ABDOMEN: Soft, nontender, nondistended, normoactive bowel sounds. No palpable organomegaly. MUSCULOSKELETAL: No joint swelling or deformity. EXTREMITIES: No cyanosis, clubbing, or pedal edema. NEUROLOGICAL: Gross neurological examination did not reveal any focal deficits. SKIN: No rashes. Assessment and plan Status post four-vessel bypass grafting for CAD. Postoperative vent dependent respiratory failure History of hypertension. History of dyslipidemia. Previous history of tobacco use. Peripheral vascular disease. Prostate cancer, status post prostatectomy. Osteoarthritis. Gastroesophageal reflux disease. Degenerative disc disease. Peripheral neuropathy. Carotid artery stenosis. Plan; Continue oxygen supplementation Encourage use of I-S Continue breathing treatments. Continue postop CABG management per cardiac surgery Continue chest tube management per cardiac surgery Strict I's and O's daily weights Continue dual antiplatelet therapy Continue statin Follow-up on on cardiac surgery recommendations follow-up on critical care team recommendations Past Medical History Past Medical History: Cancer, GERD/Reflux, Hyperlipidemia, Hypertension, Osteoarthritis (OA) Additional Past Medical History / Comment(s): DDD /SCIATICA PAIN-sharda toes numb both feet, PROSTATE CANCER WITH SURGERY. recent shortness of breath with activity. leaking urine History of Any Multi-Drug Resistant Organisms: None Reported Past Surgical History: Heart Catheterization, Joint Replacement, Prostate Surg silvana Additional Past Surgical History / Comment(s): TOTAL RIGHT and left KNEE replacements. prostatectomy Past Anesthesia/Blood Transfusion Reactions: No Reported Reaction Smoking Status: Former smoker - Past Family History Mother Family Medical History: Cancer Additional Family Medical History / Comment(s): COLON CANCER Father Family Medical History: Coronary Artery Disease (CAD), Myocardial Infarction ([place]) Medications and Allergies Home Medications Medication Instructions Recorded Confirmed Type Labetalol [Trandate] 100 mg PO BID 07/12/18 05/10/22 History Aspirin [Adult Low Dose Aspirin EC] 81 mg PO DAILY 07/03/20 05/10/22 History Losartan Potassium [Cozaar] 100 mg PO DAILY 07/03/20 05/10/22 History amLODIPine BESYLATE 5 mg PO BID 07/03/20 05/10/22 History hydroCHLOROthiazide 25 mg PO DAILY 07/03/20 05/10/22 History Atorvastatin Calcium 40 mg PO DAILY 04/23/22 05/10/22 History Isosorbide Mononitrate [Isosorbide 30 mg PO BID 04/23/22 05/10/22 History Mononitrate ER] Mirabegron [Myrbetriq] 25 mg PO HS 04/23/22 05/10/22 History Omeprazole Magnesium [PriLOSEC OTC] 20 mg PO HS 05/06/22 05/10/22 History Allergies Allergy/AdvReac Type Severity Reaction Status Date / Time No Known Allergies Allergy Verified 05/10/22 06:17 Physical Exam Vitals: Vital Signs Temp Pulse Resp BP Pulse Ox FiO2 05/11/22 11:30 81 21 95 05/11/22 11:19 82 05/11/22 11:07 81 05/11/22 11:00 77 30 H 94 L 05/11/22 10:30 75 17 93 L 05/11/22 10:00 76 17 94 L 05/11/22 09:30 86 21 93 L 05/11/22 09:00 98.4 F 84 26 H 94 L 05/11/22 08:30 87 22 91 L 05/11/22 08:00 87 24 93 L 05/11/22 07:43 82 05/11/22 07:30 82 16 96 05/11/22 07:28 86 05/11/22 07:00 86 33 H 94 L 05/11/22 06:30 81 21 93 L 05/11/22 06:00 98.6 F 82 34 H 87 L 05/11/22 05:30 82 14 92 L 05/11/22 05:00 78 18 94 L 05/11/22 04:30 76 17 93 L 05/11/22 04:00 98.6 F 75 17 93 L 05/11/22 03:30 75 16 88 L 05/11/22 03:00 79 28 H 92 L 05/11/22 02:30 75 18 93 L 05/11/22 02:00 77 23 93 L 05/11/22 01:30 74 16 94 L 05/11/22 01:00 75 19 91 L 05/11/22 00:30 74 16 93 L 05/11/22 00:00 98.6 F 81 20 92 L 05/10/22 23:30 76 22 92 L 05/10/22 23:00 74 22 91 L 05/10/22 22:30 76 20 92 L 05/10/22 22:00 75 31 H 91 L 05/10/22 21:30 75 24 93 L 05/10/22 21:00 75 21 92 L 05/10/22 20:30 76 22 92 L 01/16/23 20:15 82 16 92 L 05/10/22 20:00 98.6 F 82 16 91 L 05/10/22 19:45 78 26 H 91 L 05/10/22 19:30 78 25 H 92 L 05/10/22 19:15 78 28 H 91 L 05/10/22 19:08 75 05/10/22 19:00 37.1 F L 71 23 95 05/10/22 18:59 73 05/10/22 18:45 75 31 H 94 L 05/10/22 18:30 71 27 H 98 05/10/22 18:15 72 29 H 97 05/10/22 18:00 99.0 F 69 22 98 05/10/22 17:45 68 21 98 05/10/22 17:34 60 05/10/22 17:30 65 22 97 05/10/22 17:15 66 22 98 05/10/22 17:00 66 22 98 05/10/22 16:45 67 19 97 05/10/22 16:30 65 17 97 05/10/22 16:15 67 19 97 05/10/22 16:00 98.4 F 65 17 98 60 05/10/22 15:45 66 24 96 05/10/22 15:30 62 17 99 05/10/22 15:15 97.9 F 62 14 99 05/10/22 15:07 62 05/10/22 15:06 60 05/10/22 15:00 62 14 98 05/10/22 14:45 61 14 98 05/10/22 14:30 63 14 98 05/10/22 14:15 62 14 96 05/10/22 14:00 73 14 151/88 99 60 05/10/22 13:45 62 14 99 05/10/22 13:41 60 05/10/22 13:30 62 14 99 100 05/10/22 13:15 96.1 F L 65 14 100 05/10/22 13:10 100 05/10/22 13:00 100 Intake and Output 05/10/22 05/11/22 05/11/22 22:59 06:59 14:59 Intake Total 1473.785 728.071 1285.668 Output Total 425 940 220 Balance 1048.785 -130.274 868.668 Intake: IV 1279.0 683.0 256 ACETAMINOPHEN IV (For NPO 100 ) 1,000 mg In Empty Bag 1 bag @ 400 mls/hr IVPB Q6HR [facility] Rx#:[id number] Albumin Human 5% 250 ml 250 In Empty Bag 1 bag @ 250 mls/hr IVPB Q1HR PRN Rx#: [id number] CO/CI 190 140 30 Diltiazem 125 mg In 10 Sodium Chloride 0.9% 100 ml @ 5 MG/HR 5 mls/hr IV .Q24H [facility] Rx#:[id number] Lactated Ringers 1,000 ml 395 450 140 @ 20 mls/hr IV .Q24H [facility] Rx#:[id number] Magnesium Sulfate-D5w Pmx 200 1 gm In Dextrose/Water 1 100ml.bag @ 100 mls/hr IVPB Q1H [facility] Rx#: [id number] Nitroglycerin-D5w Pmx 50 12.0 12.0 mg In Dextrose/Water 1 250ml.bag @ 5 MCG/MIN 1.5 mls/hr IV .Q24H [facility] Rx#: [id number] ceFAZolin 2 gm In Sodium 50 50 Chloride 0.9% 50 ml @ 100 mls/hr IVPB Q8HR [facility] Rx# :[id number] pressure bag 72 81 36 Intake, IV Titration 44.785 26.726 2.668 Amount Insulin Regular 100 unit 7.517 0.951 2.668 In Sodium Chloride 0.9% 100 ml @ Per Protocol IV .Q0M [facility] Rx#:[id number] Nitroglycerin-D5w Pmx 50 25.775 mg In Dextrose/Water 1 250ml.bag @ 5 MCG/MIN 1.5 mls/hr IV .Q24H [facility] Rx#: [id number] propofoL 1,000 mg In 37.268 Empty Bag 1 bag @ Titrate IV .Q0M [facility] Rx#: [id number] Oral 150 100 830 Output: Chest Tube Drainage 190 620 80 Chest Tube Mediastinal 170 540 60 chest tube right and 20 80 20 left pleural Drainage 30 Left Wrist 30 Urine 235 290 140 Other: Voiding Method Indwelling Catheter Indwelling Catheter Weight 106.5 kg 106.5 kg ABP, PAP, CO, CI - Last 8 Hours Arterial Blood Pressure 137/47 Arterial Blood Pressure 130/47 Arterial Blood Pressure 125/43 Arterial Blood Pressure 127/44 Arterial Blood Pressure 141/52 Arterial Blood Pressure 56/56 Arterial Blood Pressure 115/43 Arterial Blood Pressure 120/51 Arterial Blood Pressure 130/46 Arterial Blood Pressure 134/48 Arterial Blood Pressure 125/45 Arterial Blood Pressure 123/77 Arterial Blood Pressure 149/54 Arterial Blood Pressure 141/50 Arterial Blood Pressure 138/46 Arterial Blood Pressure 130/46 Pulmonary Artery Pressure 33/10 Pulmonary Artery Pressure 28/8 Pulmonary Artery Pressure 31/11 Pulmonary Artery Pressure 40/14 Pulmonary Artery Pressure 33/10 Pulmonary Artery Pressure 31/7 Pulmonary Artery Pressure 26/7 Pulmonary Artery Pressure 29/6 Pulmonary Artery Pressure 40/11 Pulmonary Artery Pressure 24/4 Pulmonary Artery Pressure 25/5 Pulmonary Artery Pressure 38/10 Pulmonary Artery Pressure 37/11 Pulmonary Artery Pressure 35/9 Pulmonary Artery Pressure 38/11 Cardiac Output 5.8 Cardiac Output 6.4 Cardiac Output 7.7 Cardiac Index 2.6 Cardiac Index 2.9 Cardiac Index 3.5 Results CBC & Chem 7: 05/11/22 03:02 05/11/22 03:02 Labs: Abnormal Lab Results - Last 24 Hours (Table) 05/06/22 05/10/22 05/10/22 Range/Units 09:57 08:37 09:57 RBC (4.30-5.90) m/uL Hgb (13.0-17.5) gm/dL Hct (39.0-53.0) % Plt Count (150-450) k/uL Neutrophils # (1.3-7.7) k/uL Lymphocytes # (1.0-4.8) k/uL PT (9.0-12.0) sec INR (<1.2) ABG pCO2 47 H (35-45) mmHg ABG pO2 177 H 218 H (83-108) mmHg ABG HCO3 27 H 27 H (21-25) mmol/L ABG Total CO2 28 H 29 H (19-24) mmol/L ABG O2 Saturation 98.3 H 98.5 H (94-97) % ABG Hematocrit 32 L 32 L (34.0-46.0) % ABG Glucose 106 H 113 H (75-99) mg/dL Hemoglobin 10.6 L 10.5 L (13.0-17.5) gm/dL Sodium (137-145) mmol/L Chloride (98-107) mmol/L Glucose (74-99) mg/dL POC Glucose (mg/dL) (70-110) mg/dL Calcium (8.4-10.2) mg/dL Total Protein (6.3-8.2) g/dL Albumin (3.5-5.0) g/dL Arterial Blood Glucose 106 H 113 H (75-99) mg/dL Crossmatch See Detail 05/10/22 05/10/22 05/10/22 Range/Units 10:27 10:55 11:27 RBC (4.30-5.90) m/uL Hgb (13.0-17.5) gm/dL Hct (39.0-53.0) % Plt Count (150-450) k/uL Neutrophils # (1.3-7.7) k/uL Lymphocytes # (1.0-4.8) k/uL PT (9.0-12.0) sec INR (<1.2) ABG pCO2 (35-45) mmHg ABG pO2 231 H 220 H 199 H (83-108) mmHg ABG HCO3 26 H 26 H 26 H (21-25) mmol/L ABG Total CO2 28 H 28 H 27 H (19-24) mmol/L ABG O2 Saturation 98.8 H 98.7 H 98.7 H (94-97) % ABG Hematocrit 30 L 30 L 28 L (34.0-46.0) % ABG Glucose 108 H 106 H 105 H (75-99) mg/dL Hemoglobin 9.9 L 9.7 L 9.0 L (13.0-17.5) gm/dL Sodium (137-145) mmol/L Chloride (98-107) mmol/L Glucose (74-99) mg/dL POC Glucose (mg/dL) (70-110) mg/dL Calcium (8.4-10.2) mg/dL Total Protein (6.3-8.2) g/dL Albumin (3.5-5.0) g/dL Arterial Blood Glucose 108 H 106 H 105 H (75-99) mg/dL Crossmatch 05/10/22 05/10/22 05/10/22 Range/Units 13:14 13:14 13:14 RBC 3.14 L (4.30-5.90) m/uL Hgb 9.0 L D (13.0-17.5) gm/dL Hct 27.4 L (39.0-53.0) % Plt Count 133 L (150-450) k/uL Neutrophils # (1.3-7.7) k/uL Lymphocytes # (1.0-4.8) k/uL PT 12.6 H (9.0-12.0) sec INR 1.2 H (<1.2) ABG pCO2 (35-45) mmHg ABG pO2 (83-108) mmHg ABG HCO3 (21-25) mmol/L ABG Total CO2 (19-24) mmol/L ABG O2 Saturation (94-97) % ABG Hematocrit (34.0-46.0) % ABG Glucose (75-99) mg/dL Hemoglobin (13.0-17.5) gm/dL Sodium (137-145) mmol/L Chloride 109 H (98-107) mmol/L Glucose (74-99) mg/dL POC Glucose (mg/dL) (70-110) mg/dL Calcium 7.8 L (8.4-10.2) mg/dL Total Protein 4.9 L (6.3-8.2) g/dL Albumin 3.2 L (3.5-5.0) g/dL Arterial Blood Glucose (75-99) mg/dL Crossmatch 05/10/22 05/10/22 05/10/22 Range/Units 13:36 14:15 14:42 RBC (4.30-5.90) m/uL Hgb (13.0-17.5) gm/dL Hct (39.0-53.0) % Plt Count (150-450) k/uL Neutrophils # (1.3-7.7) k/uL Lymphocytes # (1.0-4.8) k/uL PT (9.0-12.0) sec INR (<1.2) ABG pCO2 (35-45) mmHg ABG pO2 284 H (83-108) mmHg ABG HCO3 (21-25) mmol/L ABG Total CO2 26 H (19-24) mmol/L ABG O2 Saturation 99.3 H (94-97) % ABG Hematocrit (34.0-46.0) % ABG Glucose (75-99) mg/dL Hemoglobin (13.0-17.5) gm/dL Sodium (137-145) mmol/L Chloride (98-107) mmol/L Glucose (74-99) mg/dL POC Glucose (mg/dL) 118 H 125 H (70-110) mg/dL Calcium (8.4-10.2) mg/dL Total Protein (6.3-8.2) g/dL Albumin (3.5-5.0) g/dL Arterial Blood Glucose (75-99) mg/dL Crossmatch 05/10/22 05/10/22 05/10/22 Range/Units 15:58 16:12 17:13 RBC 3.39 L (4.30-5.90) m/uL Hgb 9.6 L (13.0-17.5) gm/dL Hct 29.5 L (39.0-53.0) % Plt Count (150-450) k/uL Neutrophils # 8.4 H (1.3-7.7) k/uL Lymphocytes # (1.0-4.8) k/uL PT (9.0-12.0) sec INR (<1.2) ABG pCO2 (35-45) mmHg ABG pO2 (83-108) mmHg ABG HCO3 (21-25) mmol/L ABG Total CO2 (19-24) mmol/L ABG O2 Saturation (94-97) % ABG Hematocrit (34.0-46.0) % ABG Glucose (75-99) mg/dL Hemoglobin (13.0-17.5) gm/dL Sodium (137-145) mmol/L Chloride (98-107) mmol/L Glucose (74-99) mg/dL POC Glucose (mg/dL) 133 H 143 H (70-110) mg/dL Calcium (8.4-10.2) mg/dL Total Protein (6.3-8.2) g/dL Albumin (3.5-5.0) g/dL Arterial Blood Glucose (75-99) mg/dL Crossmatch 05/10/22 05/10/22 05/10/22 Range/Units 17:58 18:11 19:00 RBC 3.48 L (4.30-5.90) m/uL Hgb 10.2 L (13.0-17.5) gm/dL Hct 29.9 L (39.0-53.0) % Plt Count (150-450) k/uL Neutrophils # 9.1 H (1.3-7.7) k/uL Lymphocytes # 0.6 L (1.0-4.8) k/uL PT (9.0-12.0) sec INR (<1.2) ABG pCO2 (35-45) mmHg ABG pO2 167 H (83-108) mmHg ABG HCO3 (21-25) mmol/L ABG Total CO2 25 H (19-24) mmol/L ABG O2 Saturation 98.5 H (94-97) % ABG Hematocrit (34.0-46.0) % ABG Glucose (75-99) mg/dL Hemoglobin (13.0-17.5) gm/dL Sodium (137-145) mmol/L Chloride (98-107) mmol/L Glucose (74-99) mg/dL POC Glucose (mg/dL) 143 H (70-110) mg/dL Calcium (8.4-10.2) mg/dL Total Protein (6.3-8.2) g/dL Albumin (3.5-5.0) g/dL Arterial Blood Glucose (75-99) mg/dL Crossmatch 05/10/22 05/10/22 05/10/22 Range/Units 19:01 19:46 21:06 RBC (4.30-5.90) m/uL Hgb (13.0-17.5) gm/dL Hct (39.0-53.0) % Plt Count (150-450) k/uL Neutrophils # (1.3-7.7) k/uL Lymphocytes # (1.0-4.8) k/uL PT (9.0-12.0) sec INR (<1.2) ABG pCO2 (35-45) mmHg ABG pO2 (83-108) mmHg ABG HCO3 (21-25) mmol/L ABG Total CO2 (19-24) mmol/L ABG O2 Saturation (94-97) % ABG Hematocrit (34.0-46.0) % ABG Glucose (75-99) mg/dL Hemoglobin (13.0-17.5) gm/dL Sodium (137-145) mmol/L Chloride (98-107) mmol/L Glucose (74-99) mg/dL POC Glucose (mg/dL) 131 H 128 H 114 H (70-110) mg/dL Calcium (8.4-10.2) mg/dL Total Protein (6.3-8.2) g/dL Albumin (3.5-5.0) g/dL Arterial Blood Glucose (75-99) mg/dL Crossmatch 05/10/22 05/10/22 05/11/22 Range/Units 22:07 23:05 00:01 RBC (4.30-5.90) m/uL Hgb (13.0-17.5) gm/dL Hct (39.0-53.0) % Plt Count (150-450) k/uL Neutrophils # (1.3-7.7) k/uL Lymphocytes # (1.0-4.8) k/uL PT (9.0-12.0) sec INR (<1.2) ABG pCO2 (35-45) mmHg ABG pO2 (83-108) mmHg ABG HCO3 (21-25) mmol/L ABG Total CO2 (19-24) mmol/L ABG O2 Saturation (94-97) % ABG Hematocrit (34.0-46.0) % ABG Glucose (75-99) mg/dL Hemoglobin (13.0-17.5) gm/dL Sodium (137-145) mmol/L Chloride (98-107) mmol/L Glucose (74-99) mg/dL POC Glucose (mg/dL) 117 H 113 H 123 H (70-110) mg/dL Calcium (8.4-10.2) mg/dL Total Protein (6.3-8.2) g/dL Albumin (3.5-5.0) g/dL Arterial Blood Glucose (75-99) mg/dL Crossmatch 05/11/22 05/11/22 05/11/22 Range/Units 01:10 02:07 02:57 RBC (4.30-5.90) m/uL Hgb (13.0-17.5) gm/dL Hct (39.0-53.0) % Plt Count (150-450) k/uL Neutrophils # (1.3-7.7) k/uL Lymphocytes # (1.0-4.8) k/uL PT (9.0-12.0) sec INR (<1.2) ABG pCO2 (35-45) mmHg ABG pO2 (83-108) mmHg ABG HCO3 (21-25) mmol/L ABG Total CO2 (19-24) mmol/L ABG O2 Saturation (94-97) % ABG Hematocrit (34.0-46.0) % ABG Glucose (75-99) mg/dL Hemoglobin (13.0-17.5) gm/dL Sodium (137-145) mmol/L Chloride (98-107) mmol/L Glucose (74-99) mg/dL POC Glucose (mg/dL) 129 H 130 H 124 H (70-110) mg/dL Calcium (8.4-10.2) mg/dL Total Protein (6.3-8.2) g/dL Albumin (3.5-5.0) g/dL Arterial Blood Glucose (75-99) mg/dL Crossmatch 05/11/22 05/11/22 05/11/22 Range/Units 03:02 03:02 04:06 RBC 3.57 L (4.30-5.90) m/uL Hgb 10.1 L (13.0-17.5) gm/dL Hct 31.3 L (39.0-53.0) % Plt Count (150-450) k/uL Neutrophils # 8.2 H (1.3-7.7) k/uL Lymphocytes # 0.6 L (1.0-4.8) k/uL PT (9.0-12.0) sec INR (<1.2) ABG pCO2 (35-45) mmHg ABG pO2 (83-108) mmHg ABG HCO3 (21-25) mmol/L ABG Total CO2 (19-24) mmol/L ABG O2 Saturation (94-97) % ABG Hematocrit (34.0-46.0) % ABG Glucose (75-99) mg/dL Hemoglobin (13.0-17.5) gm/dL Sodium 136 L (137-145) mmol/L Chloride (98-107) mmol/L Glucose 115 H (74-99) mg/dL POC Glucose (mg/dL) 123 H (70-110) mg/dL Calcium 8.0 L (8.4-10.2) mg/dL Total Protein 5.6 L (6.3-8.2) g/dL Albumin (3.5-5.0) g/dL Arterial Blood Glucose (75-99) mg/dL Crossmatch 05/11/22 05/11/22 05/11/22 Range/Units 05:03 06:19 06:51 RBC (4.30-5.90) m/uL Hgb (13.0-17.5) gm/dL Hct (39.0-53.0) % Plt Count (150-450) k/uL Neutrophils # (1.3-7.7) k/uL Lymphocytes # (1.0-4.8) k/uL PT (9.0-12.0) sec INR (<1.2) ABG pCO2 (35-45) mmHg ABG pO2 (83-108) mmHg ABG HCO3 (21-25) mmol/L ABG Total CO2 (19-24) mmol/L ABG O2 Saturation (94-97) % ABG Hematocrit (34.0-46.0) % ABG Glucose (75-99) mg/dL Hemoglobin (13.0-17.5) gm/dL Sodium (137-145) mmol/L Chloride (98-107) mmol/L Glucose (74-99) mg/dL POC Glucose (mg/dL) 115 H 123 H 122 H (70-110) mg/dL Calcium (8.4-10.2) mg/dL Total Protein (6.3-8.2) g/dL Albumin (3.5-5.0) g/dL Arterial Blood Glucose (75-99) mg/dL Crossmatch 05/11/22 05/11/22 05/11/22 Range/Units 09:00 10:11 11:08 RBC (4.30-5.90) m/uL Hgb (13.0-17.5) gm/dL Hct (39.0-53.0) % Plt Count (150-450) k/uL Neutrophils # (1.3-7.7) k/uL Lymphocytes # (1.0-4.8) k/uL PT (9.0-12.0) sec INR (<1.2) ABG pCO2 (35-45) mmHg ABG pO2 (83-108) mmHg ABG HCO3 (21-25) mmol/L ABG Total CO2 (19-24) mmol/L ABG O2 Saturation (94-97) % ABG Hematocrit (34.0-46.0) % ABG Glucose (75-99) mg/dL Hemoglobin (13.0-17.5) gm/dL Sodium (137-145) mmol/L Chloride (98-107) mmol/L Glucose (74-99) mg/dL POC Glucose (mg/dL) 147 H 140 H 124 H (70-110) mg/dL Calcium (8.4-10.2) mg/dL Total Protein (6.3-8.2) g/dL Albumin (3.5-5.0) g/dL Arterial Blood Glucose (75-99) mg/dL Crossmatch
[2022-05-11 12:10] LABS: Glucose,Whole Blood 130 mg/dL (70-110)
[2022-05-11] MEDS: HYDROcodone/APAP 5-325MG 1 EACH TAB PO PRN ×3 (12:15→20:48)
[2022-05-11 13:12] LABS: Glucose,Whole Blood 138 mg/dL (70-110)
[2022-05-11 14:05] LABS: Glucose,Whole Blood 142 mg/dL (70-110)
[2022-05-11 15:02] LABS: Glucose,Whole Blood 138 mg/dL (70-110)
[2022-05-11 16:13] LABS: Glucose,Whole Blood 154 mg/dL (70-110)
[2022-05-11] MEDS ORDERED: DEXTROSE 50% SYRINGE 50 ML IVP PRN ×2 (16:33)
[2022-05-11] MEDS: KETOROLAC 15 MG/ML 1 ML VIAL IVP SCH ×2 (18:32→23:07)
[2022-05-11 20:25] LABS: Glucose,Whole Blood 145 mg/dL (70-110)
[2022-05-11] MEDS: INSULIN ASPART (NovoLOG) 100 UNIT/ML VIAL SQ SCH (20:36)
[2022-05-11] MEDS: PATIENT'S OWN (Mirabegron [Myrbetriq] 25 MG Tab.Er.24h) PO SCH (20:37)
[2022-05-11] MEDS: SENNOSIDES-DOCUSATE SODIUM 1 EACH TAB PO SCH (20:47)
[2022-05-12] MEDS: HYDROcodone/APAP 5-325MG 1 EACH TAB PO PRN ×2 (04:06→21:23)
[2022-05-12 04:18] LABS: Basophils % (A) 0 %; Eosinophils # (A) 0.3 k/uL (0-0.7); Eosinophils % (A) 3 %; HGB 8.8 gm/dL (13.0-17.5); Lymphocytes % (A) 11 %; MCH 29.3 pg (25.0-35.0); MCV 86.2 fL (80.0-100.0); Monocytes # (A) 0.5 k/uL (0-1.0); Monocytes % (A) 6 %; Neutrophils # (A) 7.1 k/uL (1.3-7.7); Neutrophils % (A) 79 %; Platelet Count 148 k/uL (150-450); RBC 3.01 m/uL (4.30-5.90); RDW 15.3 % (11.5-15.5)
[2022-05-12 04:23] LABS: Ionized Calcium 4.9 mg/dL (4.5-5.3)
[2022-05-12 04:32] LABS: ALT 18 U/L (4-49); AST 36 U/L (17-59); African American GFR (CKD) >90 (>60 ml/min/1.73 sqM); Albumin 3.3 g/dL (3.5-5.0); Alkaline Phosphatase 39 U/L (38-126); Anion Gap 5 mmol/L; Blood Urea Nitrogen 23 mg/dL (9-20); Calcium 8.3 mg/dL (8.4-10.2); Carbon Dioxide 24 mmol/L (22-30); Chloride 105 mmol/L (98-107); Glucose 114 mg/dL (74-99); Non-African American GFR(CKD) 80 (>60 ml/min/1.73 sqM); Potassium 3.9 mmol/L (3.5-5.1); Sodium 134 mmol/L (137-145); Total Bilirubin 0.6 mg/dL (0.2-1.3); Total Protein 5.2 g/dL (6.3-8.2)
[2022-05-12] MEDS: KETOROLAC 15 MG/ML 1 ML VIAL IVP SCH ×3 (05:46→17:23)
[2022-05-12 06:41] LABS: Glucose,Whole Blood 131 mg/dL (70-110)
[2022-05-12] MEDS: INSULIN ASPART (NovoLOG) 100 UNIT/ML VIAL SQ SCH ×4 (06:42→21:10)
[2022-05-12] MEDS: PANTOPRAZOLE 40 MG TABLET PO SCH (06:43)
[2022-05-12] MEDS ORDERED: POTASSIUM CHLORIDE ER 20 MEQ TAB.ER PO SCH (07:00)
--- NOTE | 2022-05-12 07:42 | P.PN ---
Subjective Progress Note Date: 05/12/22 Principal diagnosis: Status post open heart The patient is a pleasant 72-year-old gentleman who was diagnosed recently with severe chewable vessel coronary artery disease was extremely calcified right and left coronary systems. He was referred for CABG and he underwent CABG 3 yesterday with RIZO to LAD and SVG to OM/ramus and SVG to PDA. May 122022 The patient was seen and evaluated this morning. He remains stable from a perivascular standpoint of view and is not on any vasopressors or inotropic. He is in normal sinus mechanism. Urine output has been marginal below. He continues to be on dual antiplatelet therapy along with a statin along with beta kamaljit. From a perivascular standpoint of view, we'll continue the current medical regimen and follow-up with the patient Objective - Vital Signs Vital signs: Vital Signs Temp 98.2 F 05/12/22 04:00 Pulse 93 05/12/22 07:00 Resp 20 05/12/22 07:00 BP 117/65 05/12/22 06:00 Pulse Ox 94 L 05/12/22 07:00 FiO2 60 05/10/22 17:34 Intake & Output 05/11/22 05/12/22 05/12/22 18:59 06:59 18:59 Intake Total 2258.405 1076 26 Output Total 515 505 30 Balance 1743.405 571 -4 Weight 106.5 kg 110 kg Intake: IV 464 536 26 Albumin Human 5% 250 ml 250 In Empty Bag 1 bag @ 250 mls/hr IVPB Q1HR PRN Rx#: [id number] CO/CI 30 Lactated Ringers 1,000 ml 300 220 20 @ 20 mls/hr IV .Q24H [facility] Rx#:[id number] ceFAZolin 2 gm In Sodium 50 Chloride 0.9% 50 ml @ 100 mls/hr IVPB Q8HR [facility] Rx# :[id number] pressure bag 84 66 6 Intake, IV Titration 6.405 Amount Insulin Regular 100 unit 6.405 In Sodium Chloride 0.9% 100 ml @ Per Protocol IV .Q0M [facility] Rx#:[id number] Oral 1788 540 Output: Chest Tube Drainage 200 170 Chest Tube Mediastinal 120 50 chest tube right and 80 120 left pleural Urine 315 335 30 Other: Voiding Method Indwelling Catheter Indwelling Catheter ABP, PAP, CO, CI - Last Documented Arterial Blood Pressure 100/48 Pulmonary Artery Pressure 33/10 Cardiac Output 6.4 Cardiac Index 2.9 - Constitutional General appearance: Present: no acute distress - Respiratory Respiratory: bilateral: CTA - Cardiovascular Rhythm: regular - Labs CBC & Chem 7: 05/12/22 04:00 05/12/22 04:00 Labs: Abnormal Lab Results - Last 24 Hours (Table) 05/11/22 05/11/22 05/11/22 Range/Units 09:00 10:11 11:08 RBC (4.30-5.90) m/uL Hgb (13.0-17.5) gm/dL Hct (39.0-53.0) % Plt Count (150-450) k/uL Sodium (137-145) mmol/L BUN (9-20) mg/dL Glucose (74-99) mg/dL POC Glucose (mg/dL) 147 H 140 H 124 H (70-110) mg/dL Calcium (8.4-10.2) mg/dL Total Protein (6.3-8.2) g/dL Albumin (3.5-5.0) g/dL 05/11/22 05/11/22 05/11/22 Range/Units 12:09 13:10 14:03 RBC (4.30-5.90) m/uL Hgb (13.0-17.5) gm/dL Hct (39.0-53.0) % Plt Count (150-450) k/uL Sodium (137-145) mmol/L BUN (9-20) mg/dL Glucose (74-99) mg/dL POC Glucose (mg/dL) 130 H 138 H 142 H (70-110) mg/dL Calcium (8.4-10.2) mg/dL Total Protein (6.3-8.2) g/dL Albumin (3.5-5.0) g/dL 05/11/22 05/11/22 05/11/22 Range/Units 15:01 16:11 20:24 RBC (4.30-5.90) m/uL Hgb (13.0-17.5) gm/dL Hct (39.0-53.0) % Plt Count (150-450) k/uL Sodium (137-145) mmol/L BUN (9-20) mg/dL Glucose (74-99) mg/dL POC Glucose (mg/dL) 138 H 154 H 145 H (70-110) mg/dL Calcium (8.4-10.2) mg/dL Total Protein (6.3-8.2) g/dL Albumin (3.5-5.0) g/dL 05/12/22 05/12/22 05/12/22 Range/Units 04:00 04:00 06:40 RBC 3.01 L (4.30-5.90) m/uL Hgb 8.8 L (13.0-17.5) gm/dL Hct 26.0 L (39.0-53.0) % Plt Count 148 L (150-450) k/uL Sodium 134 L (137-145) mmol/L BUN 23 H (9-20) mg/dL Glucose 114 H (74-99) mg/dL POC Glucose (mg/dL) 131 H (70-110) mg/dL Calcium 8.3 L (8.4-10.2) mg/dL Total Protein 5.2 L (6.3-8.2) g/dL Albumin 3.3 L (3.5-5.0) g/dL Assessment and Plan Assessment: Assessment CAD status post CABG Hypertension Dyslipidemia Plan Continue the current medical regimen Continue dual antiplatelet therapy Continue statin Monitor the urine output Monitor the kidney function and electrolytes Follow-up with the patient
[2022-05-12] MEDS ORDERED: ALBUMIN HUMAN 25% 50 ML in EMPTY BAG 1 BAG IVPB ONE (07:45)
[2022-05-12] MEDS: IPRATROPIUM-ALBUTEROL 3 ML NEB INHALATION SCH ×4 (07:46→20:41)
--- NOTE | 2022-05-12 07:59 | XR ---
EXAMINATION TYPE: XR chest 1V portable DATE OF EXAM: 05/12/2022 6:08 AM COMPARISON: Chest radiograph from one day prior. TECHNIQUE: XR chest 1V portable Frontal view of the chest. CLINICAL INDICATION:Male, 72 years old with history of Post Operative Cardiac Surgery; FINDINGS: Lungs/Pleura: There is no evidence of pleural effusion, focal consolidation, or pneumothorax. Pulmonary vascularity: Unremarkable. Heart/mediastinum: Cardiomediastinal silhouette is enlarged and stable. Left atrial appendage occlusi on device is present. Musculoskeletal: No acute osseous pathology. Midline sternotomy wires are noted. Lines/Tubes: Bilateral thoracotomy tubes are present with trace left pneumothorax. Drainage tubes with tips projecting over the mediastinum. IMPRESSION: Postsurgical changes with tubes in place. Trace pneumothorax.
[2022-05-12] MEDS ORDERED: FUROSEMIDE 10 MG/ML 2 ML VIAL IV ONE (08:00)
--- NOTE | 2022-05-12 08:06 | P.PN ---
Subjective Progress Note Date: 05/12/22 Principal diagnosis: Triple-vessel coronary artery disease, unstable angina. Previous medical history of hypertension, hyperlipidemia, bilateral carotid stenosis, peripheral arterial disease, prostate cancer status post prostatectomy, previous tobacco dependence, mild COPD, daily marijuana use, occasional EtOH use, GERD, degenerative disc disease, osteoarthritis, peripheral neuropathy, obesity, and family history of CAD POD #2 off pump coronary artery bypass grafting 4, left internal thoracic artery to the left anterior descending coronary artery, left radial artery from the aorta sequential to the ramus intermedius and obtuse marginal coronary artery #1, reverse saphenous vein graft from aorta to the posterior descending coronary artery. Left atrial appendage ligation with a 40 mm Atriclip, endoscopic left radial artery and left greater saphenous vein harvest, graft flow measurements using the ThinkSuitstim flowmeter and intraoperative transesophageal echocardiogram performed by anesthesia. Postoperative acute blood loss anemia, expected given hemodilution as well as preoperative anemia The patient was seen and examined sitting up in a recliner in the intensive care unit in no acute distress eating breakfast. States pain is well controlled on current medication regimen, denies shortness of breath. He has ambulated in the hallway already this morning. Remains in sinus rhythm, hemodynamically stable on no inotropes or pressors. Currently on 2 L nasal cannula, able to achieve 750 mL on his incentive spirometry. Chest x-ray and labs reviewed. Right internal jugular Cordis, right radial arterial line, mediastinal/right/left pleural chest tubes all remain. Patient's only concern is having his chest tubes removed. No other new concerns. Objective - Vital Signs Vital signs: Vital Signs Temp 98.2 F 05/12/22 04:00 Pulse 93 05/12/22 07:00 Resp 20 05/12/22 07:00 BP 117/65 05/12/22 06:00 Pulse Ox 94 L 05/12/22 07:00 FiO2 60 05/10/22 17:34 Intake & Output 05/11/22 05/12/22 05/12/22 18:59 06:59 18:59 Intake Total 2258.405 1076 26 Output Total 515 505 30 Balance 1743.405 571 -4 Weight 106.5 kg 110 kg Intake: IV 464 536 26 Albumin Human 5% 250 ml 250 In Empty Bag 1 bag @ 250 mls/hr IVPB Q1HR PRN Rx#: [id number] CO/CI 30 Lactated Ringers 1,000 ml 300 220 20 @ 20 mls/hr IV .Q24H VERONIKA Rx#:[id number] ceFAZolin 2 gm In Sodium 50 Chloride 0.9% 50 ml @ 100 mls/hr IVPB Q8HR VERONIKA Rx# :[id number] pressure bag 84 66 6 Intake, IV Titration 6.405 Amount Insulin Regular 100 unit 6.405 In Sodium Chloride 0.9% 100 ml @ Per Protocol IV .Q0M VERONIKA Rx#:[id number] Oral 1788 540 Output: Chest Tube Drainage 200 170 Chest Tube Mediastinal 120 50 chest tube right and 80 120 left pleural Urine 315 335 30 Other: Voiding Method Indwelling Catheter Indwelling Catheter ABP, PAP, CO, CI - Last Documented Arterial Blood Pressure 100/48 Pulmonary Artery Pressure 33/10 Cardiac Output 6.4 Cardiac Index 2.9 - Exam CONSTITUTIONAL: Appears comfortable, cooperative, no acute distress RESPIRATORY: Lungs sounds diminished bilaterally. Respirations even, nonlabored. Currently on 2 L nasal cannula with oxygen saturation 93%. Able to achieve 750 mL on incentive spirometry. Strong nonproductive cough. CARDIOVASCULAR: S1, S2 present. Regular rate and rhythm, sinus rhythm on telemetry. Sternum stable. Palpable peripheral pulses bilaterally. Trace bilateral lower extremity edema present. No calf pain or tenderness noted. Heart hugger in place with patient demonstrating appropriate use. Antiembolism stockings, SCDs present. GASTROINTESTINAL: Abdomen soft, nontender, nondistended. Active bowel sounds present 4 quadrants. Tolerating diet. Positive belching, negative flatus GENITOURINARY: Nails present draining clear, yellow urine. Output overnight 25-40 mL per hour, 650 mL in the last 24 hours INTEGUMENTARY: Skin is warm and dry with evidence of good perfusion. Anterior chest incision well approximated and covered with dry intact dressing. Left radial artery harvest site as well as left lower extremity EVH site well approximated without redness or drainage. NEUROLOGIC: Cranial nerves II through XII intact MUSKULOSKELETAL: Able to move all extremities, strength equal bilaterally, gait normal PSYCHIATRIC: Alert and oriented to person place and time, appropriate affect, intact judgment and insight INVASIVE LINES AND TUBES: Mediastinal/left/right pleural chest tubes present and connected to wall suction, no air leaks present. Mediastinal tube with 40 mL serosanguineous drainage overnight, 300 mL in the last 24 hours. Left/right pleural chest tubes with 80 mL serosanguineous drainage overnight, 300 mL in the last 24 hours. Right internal jugular Cordis, right radial arterial line present. Last CVP 10. - Allied health notes Allied health notes reviewed: nursing - Labs CBC & Chem 7: 05/12/22 04:00 05/12/22 04:00 Labs: Abnormal Lab Results - Last 24 Hours (Table) 05/11/22 05/11/22 05/11/22 Range/Units 09:00 10:11 11:08 RBC (4.30-5.90) m/uL Hgb (13.0-17.5) gm/dL Hct (39.0-53.0) % Plt Count (150-450) k/uL Sodium (137-145) mmol/L BUN (9-20) mg/dL Glucose (74-99) mg/dL POC Glucose (mg/dL) 147 H 140 H 124 H (70-110) mg/dL Calcium (8.4-10.2) mg/dL Total Protein (6.3-8.2) g/dL Albumin (3.5-5.0) g/dL 05/11/22 05/11/22 05/11/22 Range/Units 12:09 13:10 14:03 RBC (4.30-5.90) m/uL Hgb (13.0-17.5) gm/dL Hct (39.0-53.0) % Plt Count (150-450) k/uL Sodium (137-145) mmol/L BUN (9-20) mg/dL Glucose (74-99) mg/dL POC Glucose (mg/dL) 130 H 138 H 142 H (70-110) mg/dL Calcium (8.4-10.2) mg/dL Total Protein (6.3-8.2) g/dL Albumin (3.5-5.0) g/dL 05/11/22 05/11/22 05/11/22 Range/Units 15:01 16:11 20:24 RBC (4.30-5.90) m/uL Hgb (13.0-17.5) gm/dL Hct (39.0-53.0) % Plt Count (150-450) k/uL Sodium (137-145) mmol/L BUN (9-20) mg/dL Glucose (74-99) mg/dL POC Glucose (mg/dL) 138 H 154 H 145 H (70-110) mg/dL Calcium (8.4-10.2) mg/dL Total Protein (6.3-8.2) g/dL Albumin (3.5-5.0) g/dL 05/12/22 05/12/22 05/12/22 Range/Units 04:00 04:00 06:40 RBC 3.01 L (4.30-5.90) m/uL Hgb 8.8 L (13.0-17.5) gm/dL Hct 26.0 L (39.0-53.0) % Plt Count 148 L (150-450) k/uL Sodium 134 L (137-145) mmol/L BUN 23 H (9-20) mg/dL Glucose 114 H (74-99) mg/dL POC Glucose (mg/dL) 131 H (70-110) mg/dL Calcium 8.3 L (8.4-10.2) mg/dL Total Protein 5.2 L (6.3-8.2) g/dL Albumin 3.3 L (3.5-5.0) g/dL - Imaging and Cardiology Chest x-ray: image reviewed Assessment and Plan Assessment: 1. Triple-vessel coronary artery disease, unstable angina, status post off-pump 4 vessel CABG 2. Hypertension 3. Hyperlipidemia, treated, cholesterol 107, LDL 58, triglycerides 53 4. Bilateral carotid stenosis, 50-69% bilaterally 5. Peripheral arterial disease, CHERELLE right 0.89, CHERELLE left 0.83 6. History of prostate cancer status post prostatectomy 7. Previous tobacco dependence 8. Mild COPD, preoperative FEV1 74% of predicted 9. Daily marijuana use 10. Occasional EtOH use 11. GERD 12. Degenerative disc disease, osteoarthritis 13. Peripheral neuropathy 14. Obesity 15. Family history of CAD 16. Postoperative acute blood loss anemia, expected given hemodilution as well as preoperative anemia Plan: 1. Continue to maximize medical therapy with aspirin, statin, Plavix, and beta kamaljit. Will increase her kamaljit as tolerated 2. Continue calcium channel kamaljit for radial artery spasm prophylaxis. Please do not discontinue without checking with cardiothoracic surgery service first, patient should be maintained on CCB for 6 months 3. Wean O2 as tolerated. Encourage incentive spirometry use 10 times every hour while awake. Bronchodilators per pulmonology 4. Increase activity, ambulate as tolerated. PT/OT/cardiac rehab following 5. Will monitor daily labs and chest x-rays. Electrolyte replacement per protocol. Will give concentrated albumin followed by IV Lasix today 6. GI/DVT prophylaxis. 7. Insulin management per internal medicine, patient is a nondiabetic with a preoperative hemoglobin A1c of 5.5%. 8. Pain control with current medication regimen. 9. Discontinue Cordis, arterial line 10. Will disontinue mediastinal chest tube, will monitor and left/right pleural chest tube drainage and possibly discontinue later today 11. Discontinue Nails catheter, made bladder scan and straight cath for greater than 300 mL residual 12. Strict accurate intake and output. Daily weights 13. The importance of risk modification including marijuana smoking cessation reinforced with the patient 14. Will place transfer orders for 3 S. cardiac stepdown unit. May transfer when bed available 15. More recommendations to follow based on patient's clinical course.
[2022-05-12] MEDS: HEPARIN SODIUM,PORCINE/PF 5,000 UNIT/0.5 ML SYRINGE SQ SCH ×2 (08:23→17:22)
[2022-05-12] MEDS: CLOPIDOGREL 75 MG TAB PO SCH (08:23)
[2022-05-12] MEDS: ATORVASTATIN 40 MG TAB PO SCH (08:23)
[2022-05-12] MEDS: MULTIVITAMINS, THERA 1 EACH TAB PO SCH (08:24)
[2022-05-12] MEDS: METOPROLOL TARTRATE 25 MG TAB PO SCH ×2 (08:24→21:23)
[2022-05-12] MEDS: THIAMINE 100 MG TAB PO SCH (08:24)
[2022-05-12] MEDS: ASPIRIN 325 MG TAB PO SCH (08:24)
[2022-05-12] MEDS: FOLIC ACID 1 MG TAB PO SCH (08:24)
--- NOTE | 2022-05-12 10:27 | P.PN ---
Subjective Progress Note Date: 05/12/22 Principal diagnosis: CABG. Pulmonary/critical care consult dated 05/10/2022. 72-year-old male who follows up with Dr. Linares as a primary, and Dr. Dietrich for cardiology. The patient has a history of hypertension, hyperlipidemia, and previous history of tobacco use. Also, has history of peripheral vascular disease, prostate cancer with previous prostatectomy, osteoarthritis, bilateral knee replacements, daily marijuana use, GERD, degenerative disc disease, peripheral neuropathy, carotid artery stenosis, and occasional alcohol use. I'm asked to see the patient today for ICU management and mechanical ventilation management. The patient had a alcohol four-vessel bypass, including RIZO to LAD, and saphenous vein graft to PDA among other bypasses. The patient also had a left atrial appendage ligation, and intraoperative transesophageal echocardiogram. The patient is currently on the ventilator, with settings of volume assist control, rate 14, tidal volume 550, FiO2 100%, PEEP of 10. Gases are pending. He is on Cardizem 5 mg an hour, nitroglycerin at 5 mcg/m, propofol at 10 mcg/kg/m, and lactated Ringer's at 50 mL an hour. Chest x-ray shows some operative changes as well as some mild bibasilar atelectasis. Labs include a white count 8.8, hemoglobin 9, hematocrit 27.4, and a platelet count of 133,000. Blood gases show pO2 of 284, pCO2 45, and a pH of 7.36. Sodium 137, potassium 4.1, chlorides 109, CO2 24, with a normal BUN and creatinine. Progress note dated 05/11/2022. 72-year-old male who I saw yesterday in consultation. He status post four- vessel bypass grafting. He he had the procedure off pump. He was extubated about 5.5 hours after leaving the operating room. Currently, he's on 3 L. Is getting lactated Ringer's at 50 mL an hour. He is also getting insulin at 1 unit an hour. Labs, x-rays, medications are all reviewed. White count 9.3, hemoglobin 10.1, hematocrit 31.3, and platelet count 172,000. Glucose is 140. Sodium 136, potassium 4.3, chlorides 107, CO2 25, BUN 18, and creatinine 0.83. Chest x-ray shows postsurgical changes, and bilateral atelectasis. Progress note dated 05/12/2022. 72-year-old male who was seen in consultation at couple days ago, status post off-pump four-vessel bypass grafting. The patient's doing well. He is currently on 2 L of oxygen. He is getting saline at KVO. He will get some L asix is morning. He does need to do better on his incentive spirometer. White count 9.0, hemoglobin 8.8, hematocrit 26, platelet count 288,000. Sodium 134, potassium 3.9, chlorides 105, CO2 24, BUN 23, and creatinine 0.95. Chest x-ray shows some bibasilar atelectasis, with a small left-sided pleural effusion. Objective - Vital Signs Vital signs: Vital Signs Temp 97.7 F 05/12/22 08:00 Pulse 84 05/12/22 10:00 Resp 13 05/12/22 10:00 BP 104/43 05/12/22 10:00 Pulse Ox 95 05/12/22 10:00 FiO2 60 05/10/22 17:34 Intake & Output 05/11/22 05/12/22 05/12/22 18:59 06:59 18:59 Intake Total 2258.405 1076 375 Output Total 515 505 90 Balance 1743.405 571 285 Weight 106.5 kg 110 kg Intake: IV 464 536 75 Albumin Human 5% 250 ml 250 In Empty Bag 1 bag @ 250 mls/hr IVPB Q1HR PRN Rx#: [id number] CO/CI 30 Lactated Ringers 1,000 ml 300 220 60 @ 20 mls/hr IV .Q24H VERONIKA Rx#:[id number] ceFAZolin 2 gm In Sodium 50 Chloride 0.9% 50 ml @ 100 mls/hr IVPB Q8HR VERONIKA Rx# :[id number] pressure bag 84 66 15 Intake, IV Titration 6.405 Amount Insulin Regular 100 unit 6.405 In Sodium Chloride 0.9% 100 ml @ Per Protocol IV .Q0M VERONIKA Rx#:[id number] Oral 1788 540 300 Output: Chest Tube Drainage 200 170 20 Chest Tube Mediastinal 120 50 0 chest tube right and 80 120 20 left pleural Urine 315 335 70 Other: Voiding Method Indwelling Catheter Indwelling Catheter Indwelling Catheter ABP, PAP, CO, CI - Last Documented Arterial Blood Pressure 108/43 Pulmonary Artery Pressure 33/10 Cardiac Output 6.4 Cardiac Index 2.9 - Exam No acute distress, extubated, on 2 L nasal cannula. No respiratory symptoms at all. HEENT examination is grossly unremarkable. Neck supple. Full range of motion. No adenopathy thyromegaly or neck vein dis tention. Cardiovascular examination reveals regular rhythm rate. S1-S2 normal. No S3 or S4. No discernible murmur noted. Heart rate 84 bpm. Lungs reveal clear breath sounds. Breath sounds are equal bilaterally. No adventitious lung sounds including wheezes rhonchi or crackles. 2 L saturation 95%. Abdomen soft without auscultated bowel sounds. No masses. Extremities are intact. No cyanosis clubbing or edema. Skin is without rash or lesion. Neurologic examination is brief but nonfocal. - Labs CBC & Chem 7: 05/12/22 04:00 05/12/22 04:00 Labs: Abnormal Lab Results - Last 24 Hours (Table) 05/11/22 05/11/22 05/11/22 Range/Units 11:08 12:09 13:10 RBC (4.30-5.90) m/uL Hgb (13.0-17.5) gm/dL Hct (39.0-53.0) % Plt Count (150-450) k/uL Sodium (137-145) mmol/L BUN (9-20) mg/dL Glucose (74-99) mg/dL POC Glucose (mg/dL) 124 H 130 H 138 H (70-110) mg/dL Calcium (8.4-10.2) mg/dL Total Protein (6.3-8.2) g/dL Albumin (3.5-5.0) g/dL 05/11/22 05/11/22 05/11/22 Range/Units 14:03 15:01 16:11 RBC (4.30-5.90) m/uL Hgb (13.0-17.5) gm/dL Hct (39.0-53.0) % Plt Count (150-450) k/uL Sodium (137-145) mmol/L BUN (9-20) mg/dL Glucose (74-99) mg/dL POC Glucose (mg/dL) 142 H 138 H 154 H (70-110) mg/dL Calcium (8.4-10.2) mg/dL Total Protein (6.3-8.2) g/dL Albumin (3.5-5.0) g/dL 05/11/22 05/12/22 05/12/22 Range/Units 20:24 04:00 04:00 RBC 3.01 L (4.30-5.90) m/uL Hgb 8.8 L (13.0-17.5) gm/dL Hct 26.0 L (39.0-53.0) % Plt Count 148 L (150-450) k/uL Sodium 134 L (137-145) mmol/L BUN 23 H (9-20) mg/dL Glucose 114 H (74-99) mg/dL POC Glucose (mg/dL) 145 H (70-110) mg/dL Calcium 8.3 L (8.4-10.2) mg/dL Total Protein 5.2 L (6.3-8.2) g/dL Albumin 3.3 L (3.5-5.0) g/dL 05/12/22 Range/Units 06:40 RBC (4.30-5.90) m/uL Hgb (13.0-17.5) gm/dL Hct (39.0-53.0) % Plt Count (150-450) k/uL Sodium (137-145) mmol/L BUN (9-20) mg/dL Glucose (74-99) mg/dL POC Glucose (mg/dL) 131 H (70-110) mg/dL Calcium (8.4-10.2) mg/dL Total Protein (6.3-8.2) g/dL Albumin (3.5-5.0) g/dL Assessment and Plan Assessment: Status post off-pump four-vessel bypass grafting for CAD, postoperative day #2. Routine postoperative ventilator management. History of hypertension. History of dyslipidemia. Previous history of tobacco use. Peripheral vascular disease. Prostate cancer, status post prostatectomy. Osteoarthritis. Gastroesophageal reflux disease. Degenerative disc disease. Peripheral neuropathy. Carotid artery stenosis. Plan: Plan dated 05/10/2022. The patient appears be doing relatively well. Initial blood gases excellent, and the FiO2 can be reduced. We will continue to follow make recommendations along the way. I suspect the patient will be an early extubation patient, typically less than 6 hours. Additional recommendations and suggestions are forthcoming. We will continue to follow and make suggestions along the way. Plan dated 05/11/2022. The patient was extubated in a timely fashion, less than 6 hours after leaving the operating room. Currently he is getting oxygen at 3 L. He is awake and there. Getting lactated Ringer's at 50 mL an hour. He is on insulin drip at 1 unit an hour. Labs, x-rays, and medications are all reviewed. We will continue to follow the patient and make recommendations along the way. Plan dated 05/12/2022. The patient has been weaned down to 2 L of oxygen. Chest x-ray shows some bibasilar atelectasis, with a small left-sided pleural effusion. The patient does need to focus a bit more on incentive spirometry. Labs, x-rays, and medications are reviewed. Today's postop day #2. We will continue to follow make recommendations along the way. Time with Patient: Less than 30
--- NOTE | 2022-05-12 11:41 | P.PN ---
Subjective Progress Note Date: 05/12/22 patient is a pleasant 72-year-old gentleman with a past medical history significant for hypertension, coronary artery disease and dyslipidemia who recently underwent a heart catheterization and was found to have severe triple- vessel CAD with chronic total occlusion of the right coronary artery. Patient also was found to have calcified right and left coronary systems. Subsequently the patient was referred for open heart. Patient underwent CABG time 3 with RIZO to LAD as well as radial artery to ramus and first obtuse marginal branch as well as SVG to PDA on 05/10. Patient currently extubated and sitting upright in the chair. The patient overall is doing well and he is stable. He is not on any vasopressors or inotrope at this point. Patient is currently being managed by the ICU team, medicine team has been consulted for medical management 05/12. Patient seen and examined. Patient laying comfortably in the bed, chest tubes in place. Participating in physical therapy, using I-S. REVIEW OF SYSTEMS: CONSTITUTIONAL: No fever, no malaise,. CARDIOVASCULAR: no palpitations, no syncope. PULMONARY: No shortness of breath, no cough, GASTROINTESTINAL: No diarrhea, no nausea, no vomiting, no abdominal pain. NEUROLOGICAL: No headaches, no weakness, PHYSICAL EXAMINATION: GENERAL: The patient is alert and oriented x3, not in any acute distress. Well developed, well nourished. HEENT: Pupils are round and equally reacting to light. EOMI. No scleral icterus. No conjunctival pallor. Normocephalic, atraumatic. No pharyngeal erythema. No thyromegaly. CARDIOVASCULAR: S1 and S2 present. No murmurs, rubs, or gallops. PULMONARY: Diminished breath sounds at the bases bilaterally, chest tubes in place ABDOMEN: Soft, nontender, nondistended, normoactive bowel sounds. No palpable organomegaly. MUSCULOSKELETAL: No joint swelling or deformity. EXTREMITIES: No cyanosis, clubbing, or pedal edema. NEUROLOGICAL: Gross neurological examination did not reveal any focal deficits. SKIN: No rashes. Assessment and plan Status post four-vessel bypass grafting for CAD. Postoperative vent dependent respiratory failure History of hypertension. History of dyslipidemia. Previous history of tobacco use. Peripheral vascular disease. Prostate cancer, status post prostatectomy. Osteoarthritis. Gastroesophageal reflux disease. Degenerative disc disease. Peripheral neuropathy. Carotid artery stenosis. Plan; POD #2 off pump coronary artery bypass grafting 4 Continue oxygen supplementation Encourage use of I-S Continue breathing treatments. Continue postop CABG management per cardiac surgery Continue chest tube management per cardiac surgery Patient was transitioned off the insulin drip to subcu insulin, blood sugars are low, not requiring any Insulin per sliding scale Follow-up on on cardiac surgery recommendations follow-up on critical care team recommendations Objective - Vital Signs Vital signs: Vital Signs Temp 97.7 F 05/12/22 08:00 Pulse 84 05/12/22 10:00 Resp 13 05/12/22 10:00 BP 104/43 05/12/22 10:00 Pulse Ox 95 05/12/22 11:21 FiO2 60 05/10/22 17:34 Intake & Output 05/11/22 05/12/22 05/12/22 18:59 06:59 18:59 Intake Total 2258.405 1076 398 Output Total 515 505 390 Balance 1743.405 571 8 Weight 106.5 kg 110 kg Intake: IV 464 536 98 Albumin Human 5% 250 ml 250 In Empty Bag 1 bag @ 250 mls/hr IVPB Q1HR PRN Rx#: [id number] CO/CI 30 Lactated Ringers 1,000 ml 300 220 80 @ 20 mls/hr IV .Q24H VERONIKA Rx#:[id number] ceFAZolin 2 gm In Sodium 50 Chloride 0.9% 50 ml @ 100 mls/hr IVPB Q8HR VERONIKA Rx# :[id number] pressure bag 84 66 18 Intake, IV Titration 6.405 Amount Insulin Regular 100 unit 6.405 In Sodium Chloride 0.9% 100 ml @ Per Protocol IV .Q0M VERONIKA Rx#:[id number] Oral 1788 540 300 Output: Chest Tube Drainage 200 170 20 Chest Tube Left 0 Chest Tube Mediastinal 120 50 0 right chest tube 80 120 20 Urine 315 335 370 Other: Voiding Method Indwelling Catheter Indwelling Catheter Indwelling Catheter ABP, PAP, CO, CI - Last Documented Arterial Blood Pressure 108/43 Pulmonary Artery Pressure 33/10 Cardiac Output 6.4 Cardiac Index 2.9 - Labs CBC & Chem 7: 05/12/22 04:00 05/12/22 04:00 Labs: Abnormal Lab Results - Last 24 Hours (Table) 05/11/22 05/11/22 05/11/22 Range/Units 12:09 13:10 14:03 RBC (4.30-5.90) m/uL Hgb (13.0-17.5) gm/dL Hct (39.0-53.0) % Plt Count (150-450) k/uL Sodium (137-145) mmol/L BUN (9-20) mg/dL Glucose (74-99) mg/dL POC Glucose (mg/dL) 130 H 138 H 142 H (70-110) mg/dL Calcium (8.4-10.2) mg/dL Total Protein (6.3-8.2) g/dL Albumin (3.5-5.0) g/dL 05/11/22 05/11/22 05/11/22 Range/Units 15:01 16:11 20:24 RBC (4.30-5.90) m/uL Hgb (13.0-17.5) gm/dL Hct (39.0-53.0) % Plt Count (150-450) k/uL Sodium (137-145) mmol/L BUN (9-20) mg/dL Glucose (74-99) mg/dL POC Glucose (mg/dL) 138 H 154 H 145 H (70-110) mg/dL Calcium (8.4-10.2) mg/dL Total Protein (6.3-8.2) g/dL Albumin (3.5-5.0) g/dL 05/12/22 05/12/22 05/12/22 Range/Units 04:00 04:00 06:40 RBC 3.01 L (4.30-5.90) m/uL Hgb 8.8 L (13.0-17.5) gm/dL Hct 26.0 L (39.0-53.0) % Plt Count 148 L (150-450) k/uL Sodium 134 L (137-145) mmol/L BUN 23 H (9-20) mg/dL Glucose 114 H (74-99) mg/dL POC Glucose (mg/dL) 131 H (70-110) mg/dL Calcium 8.3 L (8.4-10.2) mg/dL Total Protein 5.2 L (6.3-8.2) g/dL Albumin 3.3 L (3.5-5.0) g/dL
[2022-05-12 11:44] LABS: Glucose,Whole Blood 131 mg/dL (70-110)
[2022-05-12] MEDS: amLODIPine 5 MG TAB PO SCH (12:24)
--- NOTE | 2022-05-12 13:04 | CDI ---
Documentation Clarification Form Date: 05/12/2022 12:51:58 PM From: Filomena Elaine CCS, CCDS Admit Date: 05/10/2022 5:35:00 AM Patient Name: Frederick Rosales Visit Number: [id number] Discharge Date: ATTENTION: The Clinical Documentation Specialists (CDI) and [facility] Coding Staff appreciate your assistance in clarifying documentation. Please respond to the clarification below the line at the bottom and electronically sign. The CDI & [facility] Coding staff will review the response and follow-up if needed. Please note: Queries are made part of the Legal Health Record. If you have any questions, please contact the author of this message via ITS. Dr. Hira Diehl: Postoperative Vent Dependent Respiratory Failure is documented in the Medical Management Consult 05/11 and the 05/12 Progress Note which may lack sufficient clinical evidence/support in the medical record. Additional clarification is requested. History/Risk Factors per the 05/11 Medical Management Consult: CAD, GERD, Hyperlipidemia, Hypertension, OA, DDD, Sciatica, Prostate Cancer status post surgery, Former smoker. Clinical Indicators: Presented 05/10 for elective Off Pump CABG x4 for three vessel CAD. Per the 05/10 Pulmonary/Critical Care Gun Mechanic Consult: Patient arrived to ICU on vent status post surgery. sedated for routine postoperative ventilator management. Patient doing well. I suspect the patient will be an early extubation <6 hours. Per the 05/11 Pulmonary/Critical Care Gun Mechanic Progress Note: The patient was extubated about 5.5 hours after leaving the OR, currently on 3Lnc. 05/10 VS post extubation: T 99.0, P 69, 72; R 21, 29; BP 117/51, PO 94 4Lnc. Treatment: OR procedure and extubation in ICU post surgery as above. IV Acetaminophen 100 mls @ 400 mls/hr q6H, IV Dilaudid 1 mg x1. Please clarify if Postoperative Vent Dependent Respiratory Failure is a valid diagnosis? [x ] Yes, Postoperative Vent Dependent Respiratory Failure is present as evidence by (additional clinical support): [ ] No, Postoperative Vent Dependent Respiratory Failure is ruled out [ ] Other (please specify diagnosis) [ ] Unable to determine (Template Last Revised: June 2020) MTDD
[2022-05-12 18:59] LABS: Glucose,Whole Blood 190 mg/dL (70-110)
[2022-05-12] MEDS: DEXTROSE 5% IN WATER 100 ML with AMIODARONE 150 MG IV PRN (19:12)
[2022-05-12 20:00] LABS: Glucose,Whole Blood 156 mg/dL (70-110)
[2022-05-12] MEDS: PATIENT'S OWN (Mirabegron [Myrbetriq] 25 MG Tab.Er.24h) PO SCH (21:18)
[2022-05-12] MEDS: SENNOSIDES-DOCUSATE SODIUM 1 EACH TAB PO SCH (21:23)
[2022-05-13] MEDS: KETOROLAC 15 MG/ML 1 ML VIAL IVP SCH ×4 (00:12→18:55)
[2022-05-13] MEDS: HEPARIN SODIUM,PORCINE/PF 5,000 UNIT/0.5 ML SYRINGE SQ SCH ×3 (00:13→16:29)
[2022-05-13] MEDS: PANTOPRAZOLE 40 MG TABLET PO SCH (06:48)
[2022-05-13] MEDS: INSULIN ASPART (NovoLOG) 100 UNIT/ML VIAL SQ SCH ×4 (06:56→20:42)
[2022-05-13 06:57] LABS: Glucose,Whole Blood 134 mg/dL (70-110)
--- NOTE | 2022-05-13 07:49 | P.PN ---
Subjective Progress Note Date: 05/13/22 Principal diagnosis: Status post open heart The patient is a pleasant 72-year-old gentleman who was diagnosed recently with severe chewable vessel coronary artery disease was extremely calcified right and left coronary systems. He was referred for CABG and he underwent CABG 3 yesterday with RIZO to LAD and SVG to OM/ramus and SVG to PDA. May 122022 The patient was seen and evaluated this morning. He remains stable from a perivascular standpoint of view and is not on any vasopressors or inotropic. He is in normal sinus mechanism. Urine output has been marginal below. He continues to be on dual antiplatelet therapy along with a statin along with beta kamaljit. From a perivascular standpoint of view, we'll continue the current medical regimen and follow-up with the patient May 132022 The patient was seen and evaluated this morning. He went into atrial fibrillation with a controlled heart rate. He is on amiodarone IV which is going to be switching to amiodarone by mouth. If he continues to be in atrial fibrillation to the [facility] [place] need to be on oral anticoagulation. Meanwhile we will continue the current medical regimen. Otherwise he is very stable from a cardiovascular standpoint of view. Objective - Vital Signs Vital signs: Vital Signs Temp 97.8 F 05/13/22 04:00 Pulse 83 05/13/22 04:00 Resp 20 05/13/22 04:00 BP 113/83 05/13/22 04:00 Pulse Ox 97 05/13/22 04:00 FiO2 60 05/10/22 17:34 Intake & Output 05/12/22 05/13/22 05/13/22 18:59 06:59 18:59 Intake Total 398 Output Total 390 525 Balance 8 -525 Weight 110.1 kg Intake: IV 98 Lactated Ringers 1,000 ml 80 @ 20 mls/hr IV .Q24H [facility] Rx#:[id number] pressure bag 18 Oral 300 Output: Chest Tube Drainage 20 Chest Tube Left 0 Chest Tube Mediastinal 0 right chest tube 20 Urine 370 525 Other: Voiding Method Indwelling Catheter Urinal ABP, PAP, CO, CI - Last Documented Arterial Blood Pressure 108/43 Pulmonary Artery Pressure 33/10 Cardiac Output 6.4 Cardiac Index 2.9 - Constitutional General appearance: Present: no acute distress - Respiratory Respiratory: bilateral: diminished - Cardiovascular Rhythm: irregularly irregular - Labs CBC & Chem 7: 01/18/23 04:00 05/12/22 04:00 Labs: Abnormal Lab Results - Last 24 Hours (Table) 05/12/22 05/12/22 05/12/22 Range/Units 11:43 18:57 19:58 POC Glucose (mg/dL) 131 H 190 H 156 H (70-110) mg/dL 05/13/22 Range/Units 06:55 POC Glucose (mg/dL) 134 H (70-110) mg/dL Assessment and Plan Assessment: Assessment CAD status post CABG Hypertension Dyslipidemia Atrial fibrillation with controlled heart rate. This is a new diagnosis the patient Plan Consider oral anticoagulation if he remains in atrial fibrillation Continue the current medical regimen Continue dual antiplatelet therapy Continue statin Monitor the urine output Monitor the kidney function and electrolytes Follow-up with the patient
[2022-05-13] MEDS: ATORVASTATIN 40 MG TAB PO SCH (08:08)
[2022-05-13] MEDS: FOLIC ACID 1 MG TAB PO SCH (08:08)
[2022-05-13] MEDS: IPRATROPIUM-ALBUTEROL 3 ML NEB INHALATION SCH ×4 (08:08→21:15)
[2022-05-13] MEDS: AMIODARONE 200 MG TAB PO SCH ×2 (08:08→20:38)
[2022-05-13] MEDS: HYDROcodone/APAP 5-325MG 1 EACH TAB PO PRN (08:09)
[2022-05-13] MEDS: METOPROLOL TARTRATE 25 MG TAB PO SCH ×3 (08:09→21:52)
[2022-05-13] MEDS: CLOPIDOGREL 75 MG TAB PO SCH (08:09)
[2022-05-13] MEDS: THIAMINE 100 MG TAB PO SCH (08:09)
[2022-05-13] MEDS: ASPIRIN 325 MG TAB PO SCH (08:09)
[2022-05-13] MEDS: MULTIVITAMINS, THERA 1 EACH TAB PO SCH (08:10)
--- NOTE | 2022-05-13 08:25 | P.PN ---
Subjective Progress Note Date: 05/13/22 Principal diagnosis: Triple-vessel coronary artery disease, unstable angina. Past medical history significant for hypertension, hyperlipidemia, remote history of nicotine dependence and when she quit smoking over 20 years ago, peripheral vascular disease, history of prostate cancer, status post prostatectomy 10 years ago, osteoarthritis with history of bilateral knee replacements, daily marijuana use, heard, degenerative disc disease, peripheral neuropathy to his feet, bilateral carotid stenosis of 50-69%, mild COPD, occasional EtOH use drinks 2-3 alcoholic drinks per week, obesity with a BMI of 35.9 kg meters squared and a family history of coronary artery disease with his dad having a history of coronary artery bypass grafting surgery. POD #3 off pump coronary artery bypass grafting 4, left internal thoracic artery to the left anterior descending coronary artery, radial artery from the aorta sequential to the ramus intermedius and obtuse marginal coronary artery #1, and a saphenous vein graft from aorta to the posterior descending coronary artery. Left atrial appendage ligation with a 35 mm Atriclip, endoscopic left radial artery and left greater saphenous vein harvest, graft flow measurements using the Medistim flowmeter and an intraoperative transesophageal echocardiogram performed by anesthesia. Postoperative acute blood loss anemia, expected given his preoperative anemia and from hemodilution. The patient was seen and examined in follow-up today 05/13/2022 at his bedside in the intensive care unit. He is sitting up to the bedside chair, is awake, alert, oriented 3 and is in no acute apparent distress. He reports he just ambulated in the intensive care unit hallway with standby assistance from nursing staff. Denies any complaints of pain at this time, although he reports that he does get somewhat short of breath with ambulating in the hallway. Oxygen saturations are 97% on 2 L nasal cannula and he is achieving 1000 mL on his incentive spirometry with encouragement. Bedside telemetry showing atrial fibrillation heart rate 93 BPM. Amiodarone drip is infusing per protocol at 0.5 mg/m. He remains hemodynamically stable and is currently on no inotropic or pressor support. Chest x-ray was reviewed. Laboratory results remain pending. The patient's mediastinal, right and left pleural chest tubes were discontinued yesterday without incident. Objective - Vital Signs Vital signs: Vital Signs Temp 98.2 F 05/13/22 08:00 Pulse 100 05/13/22 08:00 Resp 19 05/13/22 08:00 BP 116/54 05/13/22 08:00 Pulse Ox 95 05/13/22 08:00 FiO2 60 05/10/22 17:34 Intake & Output 05/12/22 05/13/22 05/13/22 18:59 06:59 18:59 Intake Total 398 Output Total 390 525 Balance 8 -525 Weight 110.1 kg Intake: IV 98 Lactated Ringers 1,000 ml 80 @ 20 mls/hr IV .Q24H [facility] Rx#:[id number] pressure bag 18 Oral 300 Output: Chest Tube Drainage 20 Chest Tube Left 0 Chest Tube Mediastinal 0 right chest tube 20 Urine 370 525 Other: Voiding Method Indwelling Catheter Urinal ABP, PAP, CO, CI - Last Documented Arterial Blood Pressure 108/43 Pulmonary Artery Pressure 33/10 Cardiac Output 6.4 Cardiac Index 2.9 - Exam CONSTITUTIONAL: Sitting up to the bedside chair in the intensive care unit, appears comfortable, cooperative, no apparent acute distress. HEENT: Neck is supple, no JVD, no lymphadenopathy. RESPIRATORY: Lungs sounds essentially clear throughout, diminished to his bilateral bases. Respirations are symmetrical and nonlabored. Currently on 2 L nasal cannula with oxygen saturations 97%. Able to achieve 1000 mL on his incentive spirometry. Strong cough. CARDIOVASCULAR: Irregular rhythm and controlled rate. S1 and S2 present, negative for S3, gallop or murmur. Sternum is stable. Palpable peripheral pulses bilaterally. No calf pain or tenderness noted. Heart hugger in place with patient demonstrating appropriate use. Knee-high MOHINDER hose and sequential compression devices in place to his bilateral lower extremities. Bedside telemetry showing atrial fibrillation heart rate 93 BPM. GASTROINTESTINAL: Abdomen soft, nontender, nondistended. Active bowel sounds present 4 quadrants. Tolerating diet. Passing flatus. No guarding or rigidity. GENITOURINARY: Continues to void. Urine output 250 mL in the last 8 hours. INTEGUMENTARY: Skin is warm and dry with no evidence of clubbing or cyanosis. Midline sternal incision clean dry and well approximated, covered with dry intact dressing. Left lower extremity EVH sites well approximated without redness or drainage. Left arm radial artery harvest sites clean, dry and approximated. No drainage or redness is present. NEUROLOGIC: Cranial nerves II through XII intact. No focal deficits. MUSKULOSKELETAL: Able to move all extremities, strength equal bilaterally. PSYCHIATRIC: Alert and oriented to person place and time, appropriate affect, intact judgment and insight. - Allied health notes Allied health notes reviewed: nursing - Labs CBC & Chem 7: 05/12/22 04:00 05/12/22 04:00 Labs: Abnormal Lab Results - Last 24 Hours (Table) 05/12/22 05/12/22 05/12/22 Range/Units 11:43 18:57 19:58 POC Glucose (mg/dL) 131 H 190 H 156 H (70-110) mg/dL 05/13/22 Range/Units 06:55 POC Glucose (mg/dL) 134 H (70-110) mg/dL - Imaging and Cardiology Chest x-ray: report reviewed, image reviewed Assessment and Plan Assessment: 1. Triple-vessel coronary artery disease, status post off-pump CABG 4 2. Postoperative acute blood loss anemia, expected given his preoperative hemoglobin of 12.0 and hemodilution 3. History of hypertension 4. Dyslipidemia, treated preoperative LDL 58, cholesterol 107 and triglycerides 53 5. Peripheral vascular disease, preoperative ABIs, right 0.89 and left 0.83 6. Bilateral carotid artery stenosis of 50-69% 7. Mild COPD with a preoperative FEV1 74% of predicted value 8. Remote history of nicotine dependence quit smoking over 20 years ago 9. Daily marijuana use 10. Occasional EtOH use, drinks 2-3 Of colic drinks per week 11. Family history of coronary artery disease with his dad having coronary artery bypass grafting surgery 12. Peripheral neuropathy 13. Degenerative disc disease 14. GERD 15. History of prostate cancer status post prostatectomy 10 years ago Plan: 1. Continue to maximize medical therapy with aspirin, statin, Plavix, and beta kamaljit. Will increase metoprolol tartrate as tolerated. 2. Encourage incentive spirometry use 10 times every hour while awake. Br onchodilators per pulmonology/critical care medicine. 3. Increase activity, ambulate as tolerated. PT/OT/cardiac rehab following. 4. Will monitor daily labs and chest x-rays. Electrolyte replacement per protocol. 5. GI/DVT prophylaxis. 6. Insulin management per internal medicine, patient is a nondiabetic with a preoperative hemoglobin A1c of 5.5%. 7. Pain control with current medication regimen. 8. Continue record strict inaccurate I's and O's. Daily weights. 9. Continue amlodipine 5 mg by mouth daily for radial artery spasm prophylaxis, hold parameters in place. Please do not discontinue without checking with cardiothoracic surgery service first. 10. The importance of risk modification including marijuana smoking cessation reinforced with the patient. 11. Transferred to the third floor cardiac stepdown unit when a bed available. Discharge planning is in place, anticipate discharge home with home health care in the next 24-48 hours. 12. More recommendations to follow based on patient's clinical course. Time with Patient: Greater than 30
--- NOTE | 2022-05-13 08:29 | XR ---
EXAMINATION TYPE: XR chest 2V DATE OF EXAM: 05/13/2022 6:24 AM COMPARISON: Chest radiographs from 05/12/2022 TECHNIQUE: XR chest 2V Frontal and lateral views of the chest. CLINICAL INDICATION:Male, 72 years old with history of post cardiac surgery; FINDINGS: Lungs/Pleura: Left basilar atelectasis noted. Electronic device limits evaluation of the left base. T here is blunting of the left costophrenic angle. There is no evidence of focal consolidation, or pneu mothorax. Pulmonary vascularity: Unremarkable. Heart/mediastinum: Cardiomediastinal silhouette is unremarkable. Musculoskeletal: No acute osseous pathology. Lines and tubes: Removal of thoracotomy tubes from prior. IMPRESSION: Post surgical changes with small left pleural effusion.
[2022-05-13] MEDS: DEXTROSE 5% IN WATER 100 ML with AMIODARONE 150 MG IV PRN ×3 (08:31→13:19)
[2022-05-13 08:49] LABS: Basophils % (A) 0 %; Eosinophils # (A) 0.3 k/uL (0-0.7); Eosinophils % (A) 4 %; HCT 29.3 % (39.0-53.0); HGB 9.4 gm/dL (13.0-17.5); Lymphocytes % (A) 12 %; MCH 28.9 pg (25.0-35.0); MCV 90.4 fL (80.0-100.0); Mean Platelet Volume 8.2; Monocytes # (A) 0.4 k/uL (0-1.0); Monocytes % (A) 5 %; Neutrophils # (A) 6.7 k/uL (1.3-7.7); Neutrophils % (A) 78 %; Platelet Count 169 k/uL (150-450); RBC 3.24 m/uL (4.30-5.90); RDW 15.8 % (11.5-15.5); WBC 8.7 k/uL (3.8-10.6)
--- NOTE | 2022-05-13 10:01 | P.PN ---
Subjective Progress Note Date: 05/13/22 Principal diagnosis: CABG. Pulmonary/critical care consult dated 05/10/2022. 72-year-old male who follows up with Dr. Linares as a primary, and Dr. Dietrich for cardiology. The patient has a history of hypertension, hyperlipidemia, and previous history of tobacco use. Also, has history of peripheral vascular disease, prostate cancer with previous prostatectomy, osteoarthritis, bilateral knee replacements, daily marijuana use, GERD, degenerative disc disease, peripheral neuropathy, carotid artery stenosis, and occasional alcohol use. I'm asked to see the patient today for ICU management and mechanical ventilation management. The patient had a alcohol four-vessel bypass, including RIZO to LAD, and saphenous vein graft to PDA among other bypasses. The patient also had a left atrial appendage ligation, and intraoperative transesophageal echocardiogram. The patient is currently on the ventilator, with settings of volume assist control, rate 14, tidal volume 550, FiO2 100%, PEEP of 10. Gases are pending. He is on Cardizem 5 mg an hour, nitroglycerin at 5 mcg/m, propofol at 10 mcg/kg/m, and lactated Ringer's at 50 mL an hour. Chest x-ray shows some operative changes as well as some mild bibasilar atelectasis. Labs include a white count 8.8, hemoglobin 9, hematocrit 27.4, and a platelet count of 133,000. Blood gases show pO2 of 284, pCO2 45, and a pH of 7.36. Sodium 137, potassium 4.1, chlorides 109, CO2 24, with a normal BUN and creatinine. Progress note dated 05/11/2022. 72-year-old male who I saw yesterday in consultation. He status post four- vessel bypass grafting. He he had the procedure off pump. He was extubated about 5.5 hours after leaving the operating room. Currently, he's on 3 L. Is getting lactated Ringer's at 50 mL an hour. He is also getting insulin at 1 unit an hour. Labs, x-rays, medications are all reviewed. White count 9.3, hemoglobin 10.1, hematocrit 31.3, and platelet count 172,000. Glucose is 140. Sodium 136, potassium 4.3, chlorides 107, CO2 25, BUN 18, and creatinine 0.83. Chest x-ray shows postsurgical changes, and bilateral atelectasis. Progress note dated 05/12/2022. 72-year-old male who was seen in consultation at couple days ago, status post off-pump four-vessel bypass grafting. The patient's doing well. He is currently on 2 L of oxygen. He is getting saline at KVO. He will get some L asix is morning. He does need to do better on his incentive spirometer. White count 9.0, hemoglobin 8.8, hematocrit 26, platelet count 288,000. Sodium 134, potassium 3.9, chlorides 105, CO2 24, BUN 23, and creatinine 0.95. Chest x-ray shows some bibasilar atelectasis, with a small left-sided pleural effusion. Progress note dated 05/13/2022. 72-year-old male seen in consultation 3 days ago. The patient had a four-vessel bypass grafting. Patient's doing well. He did develop atrial fibrillation last night. For that reason he is on amiodarone at 0.5 mg/m. Today's postop day #3. He is on room air. Not receiving any IV fluids. He sitting up in his chair next to his bed. Labs today include a white count of 8.7, hemoglobin 9.4, hematocrit 29.3, and a normal platelet count. Glucose 134. No additional labs at this time. Chest x-ray shows postsurgical changes, and a small left pleural effusion. Objective - Vital Signs Vital signs: Vital Signs Temp 98.2 F 05/13/22 08:00 Pulse 98 05/13/22 08:22 Resp 10 L 05/13/22 08:09 BP 116/54 05/13/22 08:00 Pulse Ox 95 05/13/22 08:10 FiO2 21 05/13/22 08:10 Intake & Output 05/12/22 05/13/22 05/13/22 18:59 06:59 18:59 Intake Total 398 Output Total 390 525 Balance 8 -525 Weight 110.1 kg Intake: IV 98 Lactated Ringers 1,000 ml 80 @ 20 mls/hr IV .Q24H [facility] Rx#:[id number] pressure bag 18 Oral 300 Output: Chest Tube Drainage 20 Chest Tube Left 0 Chest Tube Mediastinal 0 right chest tube 20 Urine 370 525 Other: Voiding Method Indwelling Catheter Urinal Urinal ABP, PAP, CO, CI - Last Documented Arterial Blood Pressure 108/43 Pulmonary Artery Pressure 33/10 Cardiac Output 6.4 Cardiac Index 2.9 - Exam No acute distress, currently on room air. No respiratory distress. Saturations are excellent. HEENT examination is grossly unremarkable. Neck supple. Full range of motion. No adenopathy thyromegaly or neck vein distention. Cardiovascular examination reveals regular rhythm rate. S1-S2 normal. No S3 or S4. No discernible murmur noted. Heart rate 98 bpm. Lungs reveal clear breath sounds. Breath sounds are equal bilaterally. No adv entitious lung sounds including wheezes rhonchi or crackles. Room air saturation 95%. Abdomen soft without auscultated bowel sounds. No masses. Extremities are intact. No cyanosis clubbing or edema. Skin is without rash or lesion. Neurologic examination is brief but nonfocal. - Labs CBC & Chem 7: 05/13/22 07:27 05/12/22 04:00 Labs: Abnormal Lab Results - Last 24 Hours (Table) 05/12/22 05/12/22 05/12/22 Range/Units 11:43 18:57 19:58 RBC (4.30-5.90) m/uL Hgb (13.0-17.5) gm/dL Hct (39.0-53.0) % RDW (11.5-15.5) % POC Glucose (mg/dL) 131 H 190 H 156 H (70-110) mg/dL 05/13/22 05/13/22 Range/Units 06:55 07:27 RBC 3.24 L (4.30-5.90) m/uL Hgb 9.4 L (13.0-17.5) gm/dL Hct 29.3 L (39.0-53.0) % RDW 15.8 H (11.5-15.5) % POC Glucose (mg/dL) 134 H (70-110) mg/dL Assessment and Plan Assessment: Status post off-pump four-vessel bypass grafting for CAD, postoperative day #3. Routine postoperative ventilator management. Postoperative atrial fibrillation. History of hypertension. History of dyslipidemia. Previous history of tobacco use. Peripheral vascular disease. Prostate cancer, status post prostatectomy. Osteoarthritis. Gastroesophageal reflux disease. Degenerative disc disease. Peripheral neuropathy. Carotid artery stenosis. Plan: Plan dated 05/10/2022. The patient appears be doing relatively well. Initial blood gases excellent, and the FiO2 can be reduced. We will continue to follow make recommendations along the way. I suspect the patient will be an early extubation patient, typically less than 6 hours. Additional recommendations and suggestions are forthcoming. We will continue to follow and make suggestions along the way. Plan dated 05/11/2022. The patient was extubated in a timely fashion, less than 6 hours after leaving the operating room. Currently he is getting oxygen at 3 L. He is awake and there. Getting lactated Ringer's at 50 mL an hour. He is on insulin drip at 1 unit an hour. Labs, x-rays, and medications are all reviewed. We will continue to follow the patient and make recommendations along the way. Plan dated 05/12/2022. The patient has been weaned down to 2 L of oxygen. Chest x-ray shows some bibasilar atelectasis, with a small left-sided pleural effusion. The patient does need to focus a bit more on incentive spirometry. Labs, x-rays, and medications are reviewed. Today's postop day #2. We will continue to follow make recommendations along the way. Plan dated 05/13/2022. The patient is currently on amiodarone for new development of atrial fibrillation/RVR. This occurred yesterday, at shift change. He's on room air. Saturations are 95%. He's not receiving any IV fluids. Labs, x-rays, and medications are reviewed. Prognosis is guarded. We will continue to follow the patient and make recommendations along the way. Time with Patient: Less than 30
[2022-05-13 10:20] LABS: Chloride 107 mmol/L (98-107)
[2022-05-13 10:23] LABS: ALT 25 U/L (4-49); AST 34 U/L (17-59); African American GFR (CKD) >90 (>60 ml/min/1.73 sqM); Albumin 3.7 g/dL (3.5-5.0); Anion Gap 7 mmol/L; Blood Urea Nitrogen 24 mg/dL (9-20); Carbon Dioxide 21 mmol/L (22-30); Glucose 122 mg/dL (74-99); Non-African American GFR(CKD) 87 (>60 ml/min/1.73 sqM); Potassium 4.2 mmol/L (3.5-5.1); Sodium 135 mmol/L (137-145); Total Bilirubin 0.6 mg/dL (0.2-1.3); Total Protein 5.9 g/dL (6.3-8.2)
[2022-05-13 10:24] LABS: Alkaline Phosphatase 45 U/L (38-126); Calcium 8.8 mg/dL (8.4-10.2); Magnesium 2.3 mg/dL (1.6-2.3)
[2022-05-13] MEDS ORDERED: FUROSEMIDE 10 MG/ML 2 ML VIAL IV ONE (10:51)
[2022-05-13] MEDS ORDERED: POTASSIUM CHLORIDE ER 10 MEQ TAB.ER.PRT PO STA (10:51)
[2022-05-13 11:18] LABS: Glucose,Whole Blood 142 mg/dL (70-110)
[2022-05-13] MEDS: amLODIPine 5 MG TAB PO SCH (12:34)
--- NOTE | 2022-05-13 12:57 | P.PN ---
Subjective Progress Note Date: 05/13/22 patient is a pleasant 72-year-old gentleman with a past medical history significant for hypertension, coronary artery disease and dyslipidemia who recently underwent a heart catheterization and was found to have severe triple- vessel CAD with chronic total occlusion of the right coronary artery. Patient also was found to have calcified right and left coronary systems. Subsequently the patient was referred for open heart. Patient underwent CABG time 3 with RIZO to LAD as well as radial artery to ramus and first obtuse marginal branch as well as SVG to PDA on 05/10. Patient currently extubated and sitting upright in the chair. The patient overall is doing well and he is stable. He is not on any vasopressors or inotrope at this point. Patient is currently being managed by the ICU team, medicine team has been consulted for medical management 05/12. Patient seen and examined. Patient laying comfortably in the bed, chest tubes in place. Participating in physical therapy, using I-S. 05/13. Patient seen and examined. Chest tubes have been removed. Patient sitting upright in the chair. Patient went into A. fib this morning, currently on amiodarone REVIEW OF SYSTEMS: CONSTITUTIONAL: No fever, no malaise,. CARDIOVASCULAR: no palpitations, no syncope. PULMONARY: No shortness of breath, no cough, GASTROINTESTINAL: No diarrhea, no nausea, no vomiting, no abdominal pain. NEUROLOGICAL: No headaches, no weakness, PHYSICAL EXAMINATION: GENERAL: The patient is alert and oriented x3, not in any acute distress. Well developed, well nourished. HEENT: Pupils are round and equally reacting to light. EOMI. No scleral icterus. No conjunctival pallor. Normocephalic, atraumatic. No pharyngeal erythema. No thyromegaly. CARDIOVASCULAR: S1 and S2 present. No murmurs, rubs, or gallops. PULMONARY: Diminished breath sounds at the bases bilaterally, chest tubes in place ABDOMEN: Soft, nontender, nondistended, normoactive bowel sounds. No palpable organomegaly. MUSCULOSKELETAL: No joint swelling or deformity. EXTREMITIES: No cyanosis, clubbing, or pedal edema. NEUROLOGICAL: Gross neurological examination did not reveal any focal deficits. SKIN: No rashes. Assessment and plan Status post four-vessel bypass grafting for CAD. Postoperative vent dependent respiratory failure History of hypertension. History of dyslipidemia. Previous history of tobacco use. Peripheral vascular disease. Prostate cancer, status post prostatectomy. Osteoarthritis. Gastroesophageal reflux disease. Degenerative disc disease. Peripheral neuropathy. Carotid artery stenosis. Plan; POD #3 off pump coronary artery bypass grafting 4 Continue oxygen supplementation Encourage use of I-S Continue breathing treatments. Continue postop CABG management per cardiac surgery Continue amiodarone 400 mg twice a day Patient was transitioned off the insulin drip to subcu insulin, blood sugars are low, not requiring any Insulin per sliding scale Follow-up on on cardiac surgery recommendations follow-up on critical care team recommendations Objective - Vital Signs Vital signs: Vital Signs Temp 98 F 05/13/22 12:00 Pulse 84 05/13/22 12:00 Resp 23 05/13/22 12:00 BP 126/65 05/13/22 12:00 Pulse Ox 97 05/13/22 12:00 FiO2 21 05/13/22 08:10 Intake & Output 05/12/22 05/13/22 05/13/22 18:59 06:59 18:59 Intake Total 398 300 Output Total 390 525 250 Balance 8 -525 50 Weight 110.1 kg Intake: IV 98 Lactated Ringers 1,000 ml 80 @ 20 mls/hr IV .Q24H [facility] Rx#:[id number] pressure bag 18 Oral 300 Tube Feeding 300 Output: Chest Tube Drainage 20 Chest Tube Left 0 Chest Tube Mediastinal 0 right chest tube 20 Urine 370 525 250 Other: Voiding Method Indwelling Catheter Urinal Urinal ABP, PAP, CO, CI - Last Documented Arterial Blood Pressure 108/43 Pulmonary Artery Pressure 33/10 Cardiac Output 6.4 Cardiac Index 2.9 - Labs CBC & Chem 7: 05/13/22 07:27 05/13/22 07:27 Labs: Abnormal Lab Results - Last 24 Hours (Table) 05/12/22 05/12/22 05/13/22 Range/Units 18:57 19:58 06:55 RBC (4.30-5.90) m/uL Hgb (13.0-17.5) gm/dL Hct (39.0-53.0) % RDW (11.5-15.5) % Sodium (137-145) mmol/L Carbon Dioxide (22-30) mmol/L BUN (9-20) mg/dL Glucose (74-99) mg/dL POC Glucose (mg/dL) 190 H 156 H 134 H (70-110) mg/dL Total Protein (6.3-8.2) g/dL 05/13/22 05/13/22 05/13/22 Range/Units 07:27 07:27 11:06 RBC 3.24 L (4.30-5.90) m/uL Hgb 9.4 L (13.0-17.5) gm/dL Hct 29.3 L (39.0-53.0) % RDW 15.8 H (11.5-15.5) % Sodium 135 L (137-145) mmol/L Carbon Dioxide 21 L (22-30) mmol/L BUN 24 H (9-20) mg/dL Glucose 122 H (74-99) mg/dL POC Glucose (mg/dL) 142 H (70-110) mg/dL Total Protein 5.9 L (6.3-8.2) g/dL
[2022-05-13] MEDS ORDERED: ACETAMINOPHEN TAB 500 MG TAB PO PRN (15:04)
[2022-05-13 16:44] LABS: Glucose,Whole Blood 155 mg/dL (70-110)
[2022-05-13 20:34] LABS: Glucose,Whole Blood 148 mg/dL (70-110)
[2022-05-13] MEDS: SENNOSIDES-DOCUSATE SODIUM 1 EACH TAB PO SCH (20:39)
[2022-05-13] MEDS: PATIENT'S OWN (Mirabegron [Myrbetriq] 25 MG Tab.Er.24h) PO SCH (21:59)
[2022-05-14] MEDS: HEPARIN SODIUM,PORCINE/PF 5,000 UNIT/0.5 ML SYRINGE SQ SCH ×2 (00:08→08:09)
[2022-05-14] MEDS: KETOROLAC 15 MG/ML 1 ML VIAL IVP SCH ×2 (00:08→06:39)
[2022-05-14 06:06] LABS: HCT 26.3 % (39.0-53.0); HGB 8.8 gm/dL (13.0-17.5); MCH 29.1 pg (25.0-35.0); MCHC 33.4 g/dL (31.0-37.0); MCV 87.1 fL (80.0-100.0); Mean Platelet Volume 8.4; Platelet Count 199 k/uL (150-450); RBC 3.01 m/uL (4.30-5.90); RDW 15.5 % (11.5-15.5); WBC 6.9 k/uL (3.8-10.6)
[2022-05-14 06:17] LABS: Albumin 3.7 g/dL (3.5-5.0); Calcium 8.6 mg/dL (8.4-10.2); Potassium 4.3 mmol/L (3.5-5.1); Total Bilirubin 0.7 mg/dL (0.2-1.3)
[2022-05-14 06:33] LABS: Glucose,Whole Blood 124 mg/dL (70-110)
[2022-05-14] MEDS: INSULIN ASPART (NovoLOG) 100 UNIT/ML VIAL SQ SCH ×2 (06:37→14:21)
[2022-05-14] MEDS: PANTOPRAZOLE 40 MG TABLET PO SCH (06:39)
[2022-05-14] MEDS: IPRATROPIUM-ALBUTEROL 3 ML NEB INHALATION SCH ×2 (07:27→11:36)
[2022-05-14] MEDS ORDERED: FUROSEMIDE 10 MG/ML 2 ML VIAL IV ONE (07:30)
--- NOTE | 2022-05-14 07:33 | P.PN ---
Subjective Progress Note Date: 05/14/22 Principal diagnosis: Triple-vessel coronary artery disease, unstable angina. Previous medical history of hypertension, hyperlipidemia, bilateral carotid stenosis, peripheral arterial disease, prostate cancer status post prostatectomy, previous tobacco dependence, mild COPD, daily marijuana use, occasional EtOH use, GERD, degenerative disc disease, osteoarthritis, peripheral neuropathy, obesity, and family history of CAD POD #3 off pump coronary artery bypass grafting 4, left internal thoracic artery to the left anterior descending coronary artery, left radial artery from the aorta sequential to the ramus intermedius and obtuse marginal coronary artery #1, reverse saphenous vein graft from aorta to the posterior descending coronary artery. Left atrial appendage ligation with a 40 mm Atriclip, endoscopic left radial artery and left greater saphenous vein harvest, graft flow measurements using the [employer] flowmeter and intraoperative transesophageal echocardiogram performed by anesthesia. Postoperative acute blood loss anemia, expected given hemodilution as well as preoperative anemia Atrial fibrillation, known common occurrence after open heart surgery, not a complication The patient was seen and examined sitting up in a recliner in the intensive care unit in no acute. States pain is well controlled on current medication regimen, denies shortness of breath. He has ambulated in the hallway already this morning as well as several times each day. Currently back in sinus rhythm, hemodynamically stable. Currently on room air, able to achieve 1000 mL on his incentive spirometry. Chest x-ray and labs reviewed. Anticipate discharge home today, states he feels ready to go home. No other new concerns. Objective - Vital Signs Vital signs: Vital Signs Temp 97.9 F 05/14/22 04:00 Pulse 73 05/14/22 04:00 Resp 16 05/14/22 04:00 BP 137/88 05/14/22 04:00 Pulse Ox 95 05/14/22 04:00 FiO2 21 05/13/22 08:10 Intake & Output 05/13/22 05/14/22 05/14/22 18:59 06:59 18:59 Intake Total 500 450 Output Total 650 665 Balance -150 -215 Weight 110.2 kg Intake: Oral 450 Tube Feeding 500 Output: Urine 650 665 Other: Voiding Method Urinal Urinal # Voids 1 # Bowel Movements 1 ABP, PAP, CO, CI - Last Documented Arterial Blood Pressure 108/43 Pulmonary Artery Pressure 33/10 Cardiac Output 6.4 Cardiac Index 2.9 - Exam CONSTITUTIONAL: Appears comfortable, cooperative, no acute distress RESPIRATORY: Lungs sounds diminished bilaterally, left greater than right. Respirations even, nonlabored. Currently on room air with oxygen saturation 95%. Able to achieve 1000 mL on incentive spirometry. Strong nonproductive cough. CARDIOVASCULAR: S1, S2 present. Regular rate and rhythm, sinus rhythm on telemetry. Sternum stable. Palpable peripheral pulses bilaterally. Trace bilateral lower extremity edema present. No calf pain or tenderness noted. Heart hugger in place with patient demonstrating appropriate use. Antiembolism stockings, SCDs present. GASTROINTESTINAL: Abdomen soft, nontender, nondistended. Active bowel sounds present 4 quadrants. Tolerating diet. Positive bowel movement 05/13/22 GENITOURINARY: Continues to void clear, yellow urine, 1315 mL in the last 24 hours INTEGUMENTARY: Skin is warm and dry with evidence of good perfusion. Anterior chest incision well approximated. Left radial artery harvest site as well as left lower extremity EVH site well approximated without redness or drainage. NEUROLOGIC: Cranial nerves II through XII intact MUSKULOSKELETAL: Able to move all extremities, strength equal bilaterally, gait normal PSYCHIATRIC: Alert and oriented to person place and time, appropriate affect, intact judgment and insight - Allied health notes Allied health notes reviewed: nursing - Labs CBC & Chem 7: 05/14/22 05:50 05/14/22 05:50 Labs: Abnormal Lab Results - Last 24 Hours (Table) 05/13/22 05/13/22 05/13/22 Range/Units 07:27 07:27 11:06 RBC 3.24 L (4.30-5.90) m/uL Hgb 9.4 L (13.0-17.5) gm/dL Hct 29.3 L (39.0-53.0) % RDW 15.8 H (11.5-15.5) % Sodium 135 L (137-145) mmol/L Carbon Dioxide 21 L (22-30) mmol/L BUN 24 H (9-20) mg/dL Glucose 122 H (74-99) mg/dL POC Glucose (mg/dL) 142 H (70-110) mg/dL Total Protein 5.9 L (6.3-8.2) g/dL 05/13/22 05/13/22 05/14/22 Range/Units 16:32 20:32 05:50 RBC 3.01 L (4.30-5.90) m/uL Hgb 8.8 L (13.0-17.5) gm/dL Hct 26.3 L (39.0-53.0) % RDW (11.5-15.5) % Sodium (137-145) mmol/L Carbon Dioxide (22-30) mmol/L BUN (9-20) mg/dL Glucose (74-99) mg/dL POC Glucose (mg/dL) 155 H 148 H (70-110) mg/dL Total Protein (6.3-8.2) g/dL 05/14/22 05/14/22 Range/Units 05:50 06:31 RBC (4.30-5.90) m/uL Hgb (13.0-17.5) gm/dL Hct (39.0-53.0) % RDW (11.5-15.5) % Sodium (137-145) mmol/L Carbon Dioxide (22-30) mmol/L BUN 32 H (9-20) mg/dL Glucose 120 H (74-99) mg/dL POC Glucose (mg/dL) 124 H (70-110) mg/dL Total Protein 6.0 L (6.3-8.2) g/dL - Imaging and Cardiology Chest x-ray: image reviewed Assessment and Plan Assessment: 1. Triple-vessel coronary artery disease, unstable angina, status post off-pump 4 vessel CABG 2. Hypertension 3. Hyperlipidemia, treated, cholesterol 107, LDL 58, triglycerides 53 4. Bilateral carotid stenosis, 50-69% bilaterally 5. Peripheral arterial disease, CHERELLE right 0.89, CHERELLE left 0.83 6. History of prostate cancer status post prostatectomy 7. Previous tobacco dependence 8. Mild COPD, preoperative FEV1 74% of predicted 9. Daily marijuana use 10. Occasional EtOH use 11. GERD 12. Degenerative disc disease, osteoarthritis 13. Peripheral neuropathy 14. Obesity 15. Family history of CAD 16. Postoperative acute blood loss anemia, expected given hemodilution as well as preoperative anemia 17. Controlled paroxysmal atrial fibrillation, known recurrence after open heart surgery, status post left atrial appendage ligation Plan: 1. Continue to maximize medical therapy with aspirin, statin, Plavix, and beta kamaljit. Will increase her kamaljit as tolerated, increase to 50 mg twice daily today 2. Continue calcium channel kamaljit for radial artery spasm prophylaxis. Please do not discontinue without checking with cardiothoracic surgery service first, patient should be maintained on CCB for 6 months 3. Continue amiodarone for A. fib prophylaxis. No anticoagulation necessary 4. Encourage incentive spirometry use 10 times every hour while awake. Bronchodilators per pulmonology 5. Increase activity, ambulate as tolerated. PT/OT/cardiac rehab following 6. Will monitor daily labs and chest x-rays. Electrolyte replacement per protocol. Will give IV Lasix today 7. GI/DVT prophylaxis. 8. Insulin management per internal medicine, patient is a nondiabetic with a preoperative hemoglobin A1c of 5.5%. 9. Pain control with current medication regimen. 10. Strict accurate intake and output. Daily weights 11. The importance of risk modification including marijuana smoking cessation reinforced with the patient 12. Discharge planning in progress. Anticipate discharge to home with home care this afternoon
--- NOTE | 2022-05-14 07:47 | P.PN ---
Subjective Progress Note Date: 05/14/22 Principal diagnosis: Status post open heart The patient is a pleasant 72-year-old gentleman who was diagnosed recently with severe chewable vessel coronary artery disease was extremely calcified right and left coronary systems. He was referred for CABG and he underwent CABG 3 yesterday with RIZO to LAD and SVG to OM/ramus and SVG to PDA. May 122022 The patient was seen and evaluated this morning. He remains stable from a perivascular standpoint of view and is not on any vasopressors or inotropic. He is in normal sinus mechanism. Urine output has been marginal below. He continues to be on dual antiplatelet therapy along with a statin along with beta kamaljit. From a perivascular standpoint of view, we'll continue the current medical regimen and follow-up with the patient May 132022 The patient was seen and evaluated this morning. He went into atrial fibrillation with a controlled heart rate. He is on amiodarone IV which is going to be switching to amiodarone by mouth. If he continues to be in atrial fibrillation to the [facility] [place] need to be on oral anticoagulation. Meanwhile we will continue the current medical regimen. Otherwise he is very stable from a cardiovascular standpoint of view. May 142022 The patient was seen and evaluated this morning. He is doing well. He is converted to normal sinus mechanism. Currently he is on amiodarone by mouth in addition to beta kamaljit. From a cardiovascular standpoint, the patient can be discharged home. Objective - Vital Signs Vital signs: Vital Signs Temp 97.9 F 05/14/22 04:00 Pulse 73 05/14/22 04:00 Resp 16 05/14/22 04:00 BP 137/88 05/14/22 04:00 Pulse Ox 95 05/14/22 04:00 FiO2 21 05/13/22 08:10 Intake & Output 05/13/22 05/14/22 05/14/22 18:59 06:59 18:59 Intake Total 500 450 Output Total 650 665 Balance -150 -215 Weight 110.2 kg Intake: Oral 450 Tube Feeding 500 Output: Urine 650 665 Other: Voiding Method Urinal Urinal # Voids 1 # Bowel Movements 1 ABP, PAP, CO, CI - Last Documented Arterial Blood Pressure 108/43 Pulmonary Artery Pressure 33/10 Cardiac Output 6.4 Cardiac Index 2.9 - Constitutional General appearance: Present: no acute distress - Respiratory Respiratory: bilateral: diminished - Cardiovascular Rhythm: regular - Labs CBC & Chem 7: 05/14/22 05:50 05/14/22 05:50 Labs: Abnormal Lab Results - Last 24 Hours (Table) 05/13/22 05/13/22 05/13/22 Range/Units 07:27 07:27 11:06 RBC 3.24 L (4.30-5.90) m/uL Hgb 9.4 L (13.0-17.5) gm/dL Hct 29.3 L (39.0-53.0) % RDW 15.8 H (11.5-15.5) % Sodium 135 L (137-145) mmol/L Carbon Dioxide 21 L (22-30) mmol/L BUN 24 H (9-20) mg/dL Glucose 122 H (74-99) mg/dL POC Glucose (mg/dL) 142 H (70-110) mg/dL Total Protein 5.9 L (6.3-8.2) g/dL 05/13/22 05/13/22 05/14/22 Range/Units 16:32 20:32 05:50 RBC 3.01 L (4.30-5.90) m/uL Hgb 8.8 L (13.0-17.5) gm/dL Hct 26.3 L (39.0-53.0) % RDW (11.5-15.5) % Sodium (137-145) mmol/L Carbon Dioxide (22-30) mmol/L BUN (9-20) mg/dL Glucose (74-99) mg/dL POC Glucose (mg/dL) 155 H 148 H (70-110) mg/dL Total Protein (6.3-8.2) g/dL 05/14/22 05/14/22 Range/Units 05:50 06:31 RBC (4.30-5.90) m/uL Hgb (13.0-17.5) gm/dL Hct (39.0-53.0) % RDW (11.5-15.5) % Sodium (137-145) mmol/L Carbon Dioxide (22-30) mmol/L BUN 32 H (9-20) mg/dL Glucose 120 H (74-99) mg/dL POC Glucose (mg/dL) 124 H (70-110) mg/dL Total Protein 6.0 L (6.3-8.2) g/dL Assessment and Plan Assessment: Assessment CAD status post CABG Hypertension Dyslipidemia Atrial fibrillation with controlled heart rate. This is a new diagnosis the patient Plan Continue the current medical regimen The patient potentially can be discharged home
[2022-05-14] MEDS: ATORVASTATIN 40 MG TAB PO SCH (08:08)
[2022-05-14] MEDS: AMIODARONE 200 MG TAB PO SCH (08:08)
[2022-05-14] MEDS: ASPIRIN 325 MG TAB PO SCH (08:08)
[2022-05-14] MEDS: CLOPIDOGREL 75 MG TAB PO SCH (08:09)
[2022-05-14] MEDS: MULTIVITAMINS, THERA 1 EACH TAB PO SCH (08:09)
[2022-05-14] MEDS: THIAMINE 100 MG TAB PO SCH (08:09)
[2022-05-14] MEDS: FOLIC ACID 1 MG TAB PO SCH (08:09)
--- NOTE | 2022-05-14 08:18 | XR ---
EXAMINATION TYPE: XR chest 1V portable DATE OF EXAM: 05/14/2022 Comparison: 05/13/2022 Clinical History: 72-year-old male Postop CABG Findings: Median sternotomy wires are present with post-CABG clips. Heart mildly enlarged. Diffuse interstitial density. Patchy changes right base and throughout the left lung appears slightly increased. Impression: Cardiomegaly and suspected mild pulmonary vascular congestion. Patchy changes at the right base and t hroughout the left lung have slightly increased in the interval.
[2022-05-14 08:20] VITALS: PULSE 79
[2022-05-14] MEDS ORDERED: METOPROLOL TARTRATE 50 MG TAB PO SCH (09:00)
--- NOTE | 2022-05-14 10:09 | P.DS ---
Providers Date of admission: 05/10/22 05:35 Expected date of discharge: 05/14/22 Attending physician: Gennaro Felix MD Consults: 05/10/22 13:03 Consult Physician Routine Consulting Provider: Frederick Ramsey Consult Reason/Comments: Qa Software Tester Consult: post cardiac surgery Do you want consulting provider notified?: Yes Consult Physician Routine Consulting Provider: Tony Alvarez Consult Reason/Comments: Pot Feeder Consult: post cardiac surgery Do you want consulting provider notified?: Yes Consult Physician Routine Consulting Provider: Marcia Walker Consult Reason/Comments: [facility];[place] patient Do you want consulting provider notified?: Yes Primary care physician: [facility] Course: FINAL DIAGNOSIS: 1. Triple-vessel coronary artery disease, unstable angina 2. Hypertension 3. Hyperlipidemia, treated, cholesterol 107, LDL 58, triglycerides 53 4. Bilateral carotid stenosis, 50-69% bilaterally 5. Peripheral arterial disease, CHERELLE right 0.89, CHERELLE left 0.83 6. History of prostate cancer status post prostatectomy 7. Previous tobacco dependence 8. Mild COPD, preoperative FEV1 74% of predicted 9. Daily marijuana use 10. Occasional EtOH use 11. GERD 12. Degenerative disc disease, osteoarthritis 13. Peripheral neuropathy 14. Obesity 15. Family history of CAD 16. Postoperative acute blood loss anemia, expected 17. Controlled paroxysmal atrial fibrillation PRINCIPAL PROCEDURE: 1. Off-pump coronary artery bypass grafting 4, left internal thoracic artery to the left anterior descending coronary artery, left radial artery from the aorta to sequential to the ramus intermedius and first obtuse marginal coronary artery, reverse saphenous vein graft from the aorta to the posterior descending coronary artery 2. Left atrial appendage ligation with a 40 mm AtriClip 3. Endoscopic left radial artery and left greater saphenous vein harvest 4. Graft flow measurements using the [employer] flowmeter 5. Intraoperative transesophageal echocardiogram performed by anesthesia HISTORY OF PRESENT ILLNESS: This is a 72-year-old gentleman who follows outpatient with Dr. Linares for primary care Dr. Dietrich for cardiology. Recently he has had complaints of dyspnea on exertion and frequent episodes of heartburn. He underwent stress testing which was abnormal with reversible inferior and inferolateral wall defect with stress induced ischemia in the RCA territory. Transthoracic echocardiogram demonstrated normal left ventricular size and systolic function with EF 55-60%, mild mitral regurgitation, trace aortic regurgitation, and trace tricuspid regurgitation. He was recommended to undergo heart catheterization which demonstrated severe triple-vessel coronary artery disease including 90% proximal LAD stenosis, 95% proximal left circumflex stenosis with 80% stenosis to the first obtuse marginal branch, and subtotally occluded proximal RCA. Consultation was placed to Dr. Felix from cardiothoracic surgery. He was recommended to undergo coronary artery bypass surgery. The usual perioperative course was discussed in detail with the patient and his family, all risks and benefits were explained, all questions were answered, and consent was obtained to proceed with surgery. The patient was discharged to home on maximal medical therapy to return as an outpatient for elective surgery at the earliest possible date. HOSPITAL COURSE: The patient was brought to the hospital on 05/10/2022, taken to the preoperative area, prepared in the usual fashion, and subsequently taken to the operating room where Dr. Felix performed four-vessel off-pump CABG. Upon completion of surgery the patient was transferred to the cardiovascular intensive care unit where he was recovered and monitored hemodynamically. He was extubated, all lines, tubes, and drips were discontinued when appropriate, and transfer orders were placed for 3 S. cardiac stepdown unit, however there was no bed availability and the patient remained on ICU as a stepdown patient until discharge. He did have a brief episode of controlled atrial fibrillation which was successfully treated with amiodarone. His oxygen was titrated down, he continued to work with physical and occupational therapy, he was tolerating oral diet, his pain was controlled, and he was ready to be discharged to home with [facility] on postoperative day #4. He received written and verbal instruction regarding his medications, activity restrictions, signs and symptoms requiring physician notification, and follow-up appointments. Patient Condition at Discharge: Stable Plan - Discharge Summary Discharge Rx Participant: Yes New Discharge Prescriptions: New Multivitamins, Thera [Multivitamin (formulary)] 1 each PO DAILY tab Acetaminophen Tab [Tylenol] 1,000 mg PO Q6HR PRN tab PRN Reason: Fever And/ Or Pain Amiodarone [Cordarone] 400 mg PO BID #47 tab Furosemide [Lasix] 20 mg PO DAILY #5 tab Metoprolol Tartrate [Lopressor] 50 mg PO BID #60 tab amLODIPine [Norvasc] 5 mg PO DAILY@1200 tab Clopidogrel [Plavix] 75 mg PO DAILY #30 tab Pantoprazole [Protonix] 40 mg PO AC-BRKFST #30 tab Sennosides-Docusate Sodium [Senokot-S] 2 each PO HS PRN tab PRN Reason: Constipation Continue Aspirin [Adult Low Dose Aspirin EC] 81 mg PO DAILY Mirabegron [Myrbetriq] 25 mg PO HS Atorvastatin Calcium 40 mg PO DAILY Discontinued Labetalol [Trandate] 100 mg PO BID Losartan Potassium [Cozaar] 100 mg PO DAILY hydroCHLOROthiazide 25 mg PO DAILY amLODIPine BESYLATE 5 mg PO BID Isosorbide Mononitrate [Isosorbide Mononitrate ER] 30 mg PO BID Omeprazole Magnesium [PriLOSEC OTC] 20 mg PO HS Discharge Medication List Aspirin [Adult Low Dose Aspirin EC] 81 mg PO DAILY 07/03/20 [History] Atorvastatin Calcium 40 mg PO DAILY 04/23/22 [History] Mirabegron [Myrbetriq] 25 mg PO HS 04/23/22 [History] Acetaminophen Tab [Tylenol] 1,000 mg PO Q6HR PRN tab 05/14/22 [Rx] Amiodarone [Cordarone] 400 mg PO BID #47 tab 05/14/22 [Rx] Clopidogrel [Plavix] 75 mg PO DAILY #30 tab 05/14/22 [Rx] Furosemide [Lasix] 20 mg PO DAILY #5 tab 05/14/22 [Rx] Metoprolol Tartrate [Lopressor] 50 mg PO BID #60 tab 05/14/22 [Rx] Multivitamins, Thera [Multivitamin (formulary)] 1 each PO DAILY tab 05/14/22 [Rx] Pantoprazole [Protonix] 40 mg PO AC-BRKFST #30 tab 05/14/22 [Rx] Sennosides-Docusate Sodium [Senokot-S] 2 each PO HS PRN tab 05/14/22 [Rx] amLODIPine [Norvasc] 5 mg PO DAILY@1200 tab 05/14/22 [Rx] Follow up Appointment(s)/Referral(s): Melissa Cummings NPC [Nurse Practitioner] - 05/18/22 10:00 am (You will be seen in the surgeon's office behind the hospital in [facility], [address] [facility] [address] Office phone number is ) Endy Dietrich MD [STAFF PHYSICIAN] - 05/21/22 3:45 pm Rehab Griselda PH,Cardiac [NON-STAFF] - 4 Weeks (You will receive a phone call in approximately 4-6 weeks for evaluation for cardiac rehab) Frederick Ramsey DO [Doctor of Osteopathic Medicine] - 06/11/22 1:30 pm Brandon Linares DO [Primary Care Provider] - 05/18/22 8:45 am Gennaro Felix MD [STAFF PHYSICIAN] - 06/01/22 9:00 am [facility], [NON-STAFF] - ([facility] will call you to arrange a visit;should be seen the day after discharge then 2-3 times per week for about 4 weeks) Ambulatory/Diagnostic Orders: Complete Blood Count w/diff [LAB.AMB] Time Frame: 3 Days, Location: None Selected Comprehensive Metabolic Panel [LAB.AMB] Time Frame: 3 Days, Location: None Selected Activity/Diet/Wound Care/Special Instructions: DISCHARGE INSTRUCTIONS: 1. No driving for 4 weeks, or until physician gives their ok. 2. The patient should sleep in their own bed, no medical bed needed. 3. Stairs are not an issue. If the bedroom is upstairs, it is advised that the patient go up at night and down in the morning for the first week. Go slowly, using handrail and take 1 step at a time. 4. MOHINDER hose are to be worn for 30 days post surgery or until physician discontinues. 5. Heart hugger is to be worn 100% of the time until physician discontinues.(except when showering) 6. No lifting, pushing, or pulling more than 10 pounds for 12 weeks. The physician will advise of any restriction changes. 7. The patient is expected to continue the prescribed walking program. 8. Continue pain control per as needed orders. 9. Continue with incentive spirometry and splinting/heart hugger until otherwise directed by the physician. 10. Must shower daily using liquid antibacterial soap 11. Routine sternal incision care. No powders, lotions, ointments on incisions. No dressings are necessary on incisions unless they are draining. Dermabond tape is to remain on sternal incision until surgeon follow-up. 12. Please call surgeon/RECOVERY AGENT for temp greater than 101 F or purulent drainage from incisions. 13. You should weigh yourself daily, record and bring log with you to follow up appointments. 14. All prescriptions given by surgeon for 30 days. Refills need to be filled through crabbing machine operator/primary care physician. 15. A Red armband has been placed on the patient. It should be worn for 30 days post discharge from surgery and will be removed by the cardiac surgeons. If an ER visit is necessary, please make sure the number on the Red armband is called before going to ER. 16. You have been referred to and are expected to begin Cardiac Rehab in approximately 4-6 weeks. HOME HEALTH SERVICES TO PROVIDE: RN SKILLED HOME CARE SERVICES FOR POST-OP SURGICAL PATIENTS WITH THE FOLLOWING: Coronary Artery Bypass Surgery (CABG), Mitral Valve Replacement/Repair ( MVR), Aortic Valve Replacement/Repair (AVR) RN TO CONTINUE EDUCATION FROM ``ROAD TO A HEALTH HEART PATIENT EDUCATION MANUAL (GIVEN TO PATIENT IN THE HOSPITAL) MEDICATION RECONCILIATION WITH EDUCATION NEEDED ON FIRST HOME VISIT EMPHASIZE IMPORTANCE OF WEARING BREAST SUPPORT/HEART HUGGER ENCOURAGE USE OF INCENTIVE SPIROMETER 10 X EVERY HOUR WHILE AWAKE ENCOURAGE UTILIZATION OF LOWER EXTREMITY COMPRESSION STOCKINGS/MOHINDER HOSE and ELEVATE LEGS ABOVE LEVEL OF HEART WHILE AT REST. ENCOURAGE AMBULATION 3-5x/day INCREASING TOLERATES, WHILE AVOIDING EXTREMES IN TEMPERATURE FREQUENCY: RN TO OPEN THE PATIENT WITHIN 24 HOURS OF DISCHARGE FROM THE HOSPITAL WITH TELEHEALTH INSTALLED AT [facility] [place], RN TO VISIT 2-3 X A WEEK FOR 4 WEEKS ESTABLISHED BY PATIENT NEEDS. LABORATORY: CBC, CMP TO BE DRAWN ON THE THIRD DAY HOME, (RAN STAT) FAX RESULTS TO [phone]. TELEHEALTH PARAMETERS: WEIGHT: NOTIFY MD OF WEIGHT GAIN OF 2 LBS IN 24 HOURS OR 5 LBS IN ONE WEEK HR: NOTIFY MD OF HR <55 BPM OR HR>100 BPM BP: NOTIFY MD IF BP <90/55 OR BP>140/100 O2 SAT: NOTIFY MD IF PO2<93% ON ROOM AIR SEND TELEHEALTH REPORT TO SURGICAL ELASTIC KNITTER HAND FRAME AND CARDIOVASCULAR SURGEON THE FIRST WEEK OF CARE AND THEN BI-WEEKLY. PLEASE ADDITIONALLY COMMUNICATE ANY ABNORMALS AND NEW FINDINGS TO THE SURGEONS OFFICE. Discharge/Stand Alone Forms: Community Resources Discharge Disposition: HOME WITH HOME HEALTH SERVICES
[2022-05-14 11:35] LABS: Glucose,Whole Blood 115 mg/dL (70-110)
--- NOTE | 2022-05-14 12:29 | P.PN ---
Subjective Progress Note Date: 05/14/22 Principal diagnosis: CABG. Pulmonary/critical care consult dated 05/10/2022. 72-year-old male who follows up with Dr. Linares as a primary, and Dr. Dietrich for cardiology. The patient has a history of hypertension, hyperlipidemia, and previous history of tobacco use. Also, has history of peripheral vascular disease, prostate cancer with previous prostatectomy, osteoarthritis, bilateral knee replacements, daily marijuana use, GERD, degenerative disc disease, peripheral neuropathy, carotid artery stenosis, and occasional alcohol use. I'm asked to see the patient today for ICU management and mechanical ventilation management. The patient had a alcohol four-vessel bypass, including RIZO to LAD, and saphenous vein graft to PDA among other bypasses. The patient also had a left atrial appendage ligation, and intraoperative transesophageal echocardiogram. The patient is currently on the ventilator, with settings of volume assist control, rate 14, tidal volume 550, FiO2 100%, PEEP of 10. Gases are pending. He is on Cardizem 5 mg an hour, nitroglycerin at 5 mcg/m, propofol at 10 mcg/kg/m, and lactated Ringer's at 50 mL an hour. Chest x-ray shows some operative changes as well as some mild bibasilar atelectasis. Labs include a white count 8.8, hemoglobin 9, hematocrit 27.4, and a platelet count of 133,000. Blood gases show pO2 of 284, pCO2 45, and a pH of 7.36. Sodium 137, potassium 4.1, chlorides 109, CO2 24, with a normal BUN and creatinine. Progress note dated 05/11/2022. 72-year-old male who I saw yesterday in consultation. He status post four- vessel bypass grafting. He he had the procedure off pump. He was extubated about 5.5 hours after leaving the operating room. Currently, he's on 3 L. Is getting lactated Ringer's at 50 mL an hour. He is also getting insulin at 1 unit an hour. Labs, x-rays, medications are all reviewed. White count 9.3, hemoglobin 10.1, hematocrit 31.3, and platelet count 172,000. Glucose is 140. Sodium 136, potassium 4.3, chlorides 107, CO2 25, BUN 18, and creatinine 0.83. Chest x-ray shows postsurgical changes, and bilateral atelectasis. Progress note dated 05/12/2022. 72-year-old male who was seen in consultation at couple days ago, status post off-pump four-vessel bypass grafting. The patient's doing well. He is currently on 2 L of oxygen. He is getting saline at KVO. He will get some L asix is morning. He does need to do better on his incentive spirometer. White count 9.0, hemoglobin 8.8, hematocrit 26, platelet count 288,000. Sodium 134, potassium 3.9, chlorides 105, CO2 24, BUN 23, and creatinine 0.95. Chest x-ray shows some bibasilar atelectasis, with a small left-sided pleural effusion. Progress note dated 05/13/2022. 72-year-old male seen in consultation 3 days ago. The patient had a four-vessel bypass grafting. Patient's doing well. He did develop atrial fibrillation last night. For that reason he is on amiodarone at 0.5 mg/m. Today's postop day #3. He is on room air. Not receiving any IV fluids. He sitting up in his chair next to his bed. Labs today include a white count of 8.7, hemoglobin 9.4, hematocrit 29.3, and a normal platelet count. Glucose 134. No additional labs at this time. Chest x-ray shows postsurgical changes, and a small left pleural effusion. Progress note dated 05/14/2022. 72-year-old male seen in room 265. The patient is doing well. He status post four-vessel bypass grafting. He is on room air. No IV fluids. Apparently, they are considering discharge home today. Labs today include a white count 6.9, hemoglobin 8.8, hematocrit 26.3, and platelet count 199,000. Sodium 137, potassium 4.3, chlorides 105, CO2 24, BUN 32, and creatinine 1.06. Albumin is 3.7. Chest x-ray today shows some very mild pulmonary vascular congestion, and cardiomegaly. Objective - Vital Signs Vital signs: Vital Signs Temp 97.7 F 05/14/22 08:00 Pulse 79 05/14/22 08:00 Resp 19 05/14/22 08:00 BP 145/75 05/14/22 08:00 Pulse Ox 95 05/14/22 11:00 FiO2 21 05/13/22 08:10 Intake & Output 05/13/22 05/14/22 05/14/22 18:59 06:59 18:59 Intake Total 500 450 Output Total 650 665 400 Balance -150 -215 -400 Weight 110.2 kg Intake: Oral 450 Tube Feeding 500 Output: Urine 650 665 400 Other: Voiding Method Urinal Urinal Urinal # Voids 1 # Bowel Movements 1 1 ABP, PAP, CO, CI - Last Documented Arterial Blood Pressure 108/43 Pulmonary Artery Pressure 33/10 Cardiac Output 6.4 Cardiac Index 2.9 - Exam No acute distress, currently on room air. No respiratory distress. Saturations are excellent. HEENT examination is grossly unremarkable. Neck supple. Full range of motion. No adenopathy thyromegaly or neck vein distention. Cardiovascular examination reveals regular rhythm rate. S1-S2 normal. No S3 or S4. No discernible murmur noted. Heart rate 79 bpm. Lungs reveal clear breath sounds. Breath sounds are equal bilaterally. No adventitious lung sounds including wheezes rhonchi or crackles. Room air saturation 95%. Abdomen soft without auscultated bowel sounds. No masses. Extremities are intact. No cyanosis clubbing or edema. Skin is without rash or lesion. Neurologic examination is brief but nonfocal. - Labs CBC & Chem 7: 05/14/22 05:50 05/14/22 05:50 Labs: Abnormal Lab Results - Last 24 Hours (Table) 05/13/22 05/13/22 05/14/22 Range/Units 16:32 20:32 05:50 RBC 3.01 L (4.30-5.90) m/uL Hgb 8.8 L (13.0-17.5) gm/dL Hct 26.3 L (39.0-53.0) % BUN (9-20) mg/dL Glucose (74-99) mg/dL POC Glucose (mg/dL) 155 H 148 H (70-110) mg/dL Total Protein (6.3-8.2) g/dL 05/14/22 05/14/22 05/14/22 Range/Units 05:50 06:31 11:32 RBC (4.30-5.90) m/uL Hgb (13.0-17.5) gm/dL Hct (39.0-53.0) % BUN 32 H (9-20) mg/dL Glucose 120 H (74-99) mg/dL POC Glucose (mg/dL) 124 H 115 H (70-110) mg/dL Total Protein 6.0 L (6.3-8.2) g/dL Assessment and Plan Assessment: Status post off-pump four-vessel bypass grafting for CAD, postoperative day #4. Routine postoperative ventilator management. Postoperative atrial fibrillation. History of hypertension. History of dyslipidemia. Previous history of tobacco use. Peripheral vascular disease. Prostate cancer, status post prostatectomy. Osteoarthritis. Gastroesophageal reflux disease. Degenerative disc disease. Peripheral neuropathy. Carotid artery stenosis. Plan: Plan dated 05/10/2022. The patient appears be doing relatively well. Initial blood gases excellent, and the FiO2 can be reduced. We will continue to follow make recommendations along the way. I suspect the patient will be an early extubation patient, typically less than 6 hours. Additional recommendations and suggestions are forthcoming. We will continue to follow and make suggestions along the way. Plan dated 05/11/2022. The patient was extubated in a timely fashion, less than 6 hours after leaving the operating room. Currently he is getting oxygen at 3 L. He is awake and there. Getting lactated Ringer's at 50 mL an hour. He is on insulin drip at 1 unit an hour. Labs, x-rays, and medications are all reviewed. We will continue to follow the patient and make recommendations along the way. Plan dated 05/12/2022. The patient has been weaned down to 2 L of oxygen. Chest x-ray shows some bibasilar atelectasis, with a small left-sided pleural effusion. The patient does need to focus a bit more on incentive spirometry. Labs, x-rays, and medications are reviewed. Today's postop day #2. We will continue to follow make recommendations along the way. Plan dated 05/13/2022. The patient is currently on amiodarone for new development of atrial fibrillation/RVR. This occurred yesterday, at shift change. He's on room air. Saturations are 95%. He's not receiving any IV fluids. Labs, x-rays, and medications are reviewed. Prognosis is guarded. We will continue to follow the patient and make recommendations along the way. Plan dated 05/14/2022. The patient appears to be relatively stable. The patient's on room air. He is not receiving any IV fluids. Labs, x-rays, and medications are all reviewed. There is a potential that the patient could be discharged home today. We will leave that up to cardiothoracic surgery. We will continue to follow the patient and make recommendations along the way. Prognosis is good. Time with Patient: Less than 30
[2022-05-14 12:46] VITALS: BP 129/65; RESP 18; TEMP 98.2
[2022-05-14] MEDS: amLODIPine 5 MG TAB PO SCH (12:46)
--- NOTE | 2022-05-14 15:55 | P.PN ---
Subjective Progress Note Date: 05/14/22 Principal diagnosis: Triple-vessel coronary artery disease Status post off-pump four-vessel bypass grafting for CAD, postoperative day #4 72-year-old gentleman with a past medical history significant for hypertension, coronary artery disease and dyslipidemia who recently underwent a heart catheterization and was found to have severe triple-vessel CAD with chronic total occlusion of the right coronary artery. Patient also was found to have calcified right and left coronary systems. Subsequently the patient was referred for open heart. Patient underwent CABG time 3 with RIZO to LAD as well as radial artery to ramus and first obtuse marginal branch as well as SVG to PDA on 05/10. Patient currently extubated and sitting upright in the chair. The patient overall is doing well and he is stable. He is not on any vasopressors or inotrope at this point. Patient is currently being managed by the ICU team, medicine team has been consulted for medical management 05/14/2022 Patient is seen and evaluated in room at bedside; no specific complaints reported Patient is status post four-vessel bypass grafting. He is on room air. No IV fluids. Apparently, they are considering discharge home today. Labs today include a white count 6.9, hemoglobin 8.8, hematocrit 26.3, and platelet count 199,000. Sodium 137, potassium 4.3, chlorides 105, CO2 24, BUN 32, and creatinine 1.06. Albumin is 3.7. Chest x-ray today shows some very mild pulmonary vascular congestion, and cardiomegaly. Patient is possibly scheduled for discharge this morning Objective - Vital Signs Vital signs: Vital Signs Temp 97.7 F 05/14/22 08:00 Pulse 79 05/14/22 08:00 Resp 19 05/14/22 08:00 BP 145/75 05/14/22 08:00 Pulse Ox 95 05/14/22 04:00 FiO2 21 05/13/22 08:10 Intake & Output 05/13/22 05/14/22 05/14/22 18:59 06:59 18:59 Intake Total 500 450 Output Total 650 665 400 Balance -150 -215 -400 Weight 110.2 kg Intake: Oral 450 Tube Feeding 500 Output: Urine 650 665 400 Other: Voiding Method Urinal Urinal Urinal # Voids 1 # Bowel Movements 1 1 ABP, PAP, CO, CI - Last Documented Arterial Blood Pressure 108/43 Pulmonary Artery Pressure 33/10 Cardiac Output 6.4 Cardiac Index 2.9 - Exam GENERAL: The patient is alert and oriented x3, not in any acute distress. Well developed, well nourished. HEENT: Pupils are round and equally reacting to light. EOMI. No scleral icterus. No conjunctival pallor. Normocephalic, atraumatic. No pharyngeal erythema. No thyromegaly. CARDIOVASCULAR: S1 and S2 present. No murmurs, rubs, or gallops. PULMONARY: Diminished breath sounds at the bases bilaterally, chest tubes in place ABDOMEN: Soft, nontender, nondistended, normoactive bowel sounds. No palpable organomegaly. MUSCULOSKELETAL: No joint swelling or deformity. EXTREMITIES: No cyanosis, clubbing, or pedal edema. NEUROLOGICAL: Gross neurological examination did not reveal any focal deficits. SKIN: No rashes. - Labs CBC & Chem 7: 05/14/22 05:50 05/14/22 05:50 Labs: Abnormal Lab Results - Last 24 Hours (Table) 05/13/22 05/13/22 05/13/22 Range/Units 07:27 11:06 16:32 RBC (4.30-5.90) m/uL Hgb (13.0-17.5) gm/dL Hct (39.0-53.0) % Sodium 135 L (137-145) mmol/L Carbon Dioxide 21 L (22-30) mmol/L BUN 24 H (9-20) mg/dL Glucose 122 H (74-99) mg/dL POC Glucose (mg/dL) 142 H 155 H (70-110) mg/dL Total Protein 5.9 L (6.3-8.2) g/dL 05/13/22 05/14/22 05/14/22 Range/Units 20:32 05:50 05:50 RBC 3.01 L (4.30-5.90) m/uL Hgb 8.8 L (13.0-17.5) gm/dL Hct 26.3 L (39.0-53.0) % Sodium (137-145) mmol/L Carbon Dioxide (22-30) mmol/L BUN 32 H (9-20) mg/dL Glucose 120 H (74-99) mg/dL POC Glucose (mg/dL) 148 H (70-110) mg/dL Total Protein 6.0 L (6.3-8.2) g/dL 05/14/22 Range/Units 06:31 RBC (4.30-5.90) m/uL Hgb (13.0-17.5) gm/dL Hct (39.0-53.0) % Sodium (137-145) mmol/L Carbon Dioxide (22-30) mmol/L BUN (9-20) mg/dL Glucose (74-99) mg/dL POC Glucose (mg/dL) 124 H (70-110) mg/dL Total Protein (6.3-8.2) g/dL Assessment and Plan Assessment: Status post four-vessel bypass grafting for CAD. Postoperative vent dependent respiratory failure History of hypertension. History of dyslipidemia. Previous history of tobacco use. Peripheral vascular disease. Prostate cancer, status post prostatectomy. Osteoarthritis. Gastroesophageal reflux disease. Degenerative disc disease. Peripheral neuropathy. Carotid artery stenosis. Plan; POD #4 off pump coronary artery bypass grafting 4 Continue oxygen supplementation Encourage use of I-S Continue breathing treatments. Continue postop CABG management per cardiac surgery Continue amiodarone 400 mg twice a day Patient was transitioned off the insulin drip to subcu insulin, blood sugars are low, not requiring any Insulin per sliding scale Follow-up on on cardiac surgery recommendations follow-up on critical care team recommendations
--- NOTE | 2022-07-09 14:12 | CDI ---
"Post op respiratory failure is documented in the 05/11 Medicine consult. Additional clarification regarding the cause or validity of the post op respiratory failure diagnosis is requested. History/Risk Factors: 72-year-old gentleman with a past medical history significant for hypertension, coronary artery disease and dyslipidemia who recently underwent a heart catheterization and was found to have severe triple- vessel CAD with chronic total occlusion of the right coronary artery. Patient also was found to have calcified right and left coronary systems. Subsequently the patient was referred for open heart surgery. Patient is status post CABG on 05/10/22 Clinical Indicators: 05/11 Medicine consult: Postoperative vent dependent respiratory failure: Patient currently extubated and sitting upright in the chair. The patient overall is doing well and he is stable. He is not on any vasopressors or inotrope at this point. Continue oxygen supplementation, Encourage use of I-S, Continue breathing treatments. 05/10 Critical Care consult: The patient appears be doing relatively well. Initial blood gases excellent, and the FiO2 can be reduced. We will continue to follow make recommendations along the way. I suspect the patient will be an early extubation patient, typically less than 6 hours. 05/11 Critical Care note: He status post four-vessel bypass grafting. He had the procedure off pump. He was extubated about 5.5 hours after leaving the operating room. Currently, he's on 3L 05/12 Critical Care note: The patient's doing well. He is currently on 2 L of oxygen. He is getting saline at KVO. He will get some Lasix is morning. He does need to do better on his incentive spirometer. 05/14 Medicine note: Postoperative vent dependent respiratory failure: He is on room air. 05/14 Critical Care note: The patient appears to be relatively stable. The patient's on room air. He is not receiving any IV fluids. Labs, x-rays, and medications are all reviewed. There is a potential that the patient could be discharged home today. 05/10 ABG: pH 7.37 | PCO2 42 | PO2 167 | [id number] Treatment: Extubated 5.5 hours postop, Oxygen titrated from 3l/nc to Room Air, Incentive Spirometer Please clarify the documentation related to post op respiratory failure, if known: [ x ] Pt was weaned from mechanical ventilation in an expected timeframe following the procedure and respiratory failure has been ruled out. [ ] Acute respiratory failure is a complication of the surgical procedure [ ] Other please specify [ ] Unable to determine (Template Last Revised: June 2020) MTDD"
== END 2022-05-14 14:25 | disposition home health service (06) | DRG 236 ==
LOC: 2ORMAIN 05:35 → 2SICU 13:00
PROVIDERS: ADMIT Thoracic Surgery (Cardiothoracic Vascular Surgery); ATTEND Thoracic Surgery (Cardiothoracic Vascular Surgery)
PROC: 0211093 Bypass Coronary Artery, Two Arteries from Coronary Artery with Autologous Venous Tissue, Open Approach (ICD-10-PCS; 2022-05-10)
PROC: 02L70CK Occlusion of Left Atrial Appendage with Extraluminal Device, Open Approach (ICD-10-PCS; 2022-05-10)
PROC: 4A0305C Measurement of Arterial Flow, Coronary, Open Approach (ICD-10-PCS; 2022-05-10)
PROC: 02100Z3 Bypass Coronary Artery, One Artery from Coronary Artery, Open Approach (ICD-10-PCS; principal; 2022-05-10 08:00)
PROC: 06BQ4ZZ Excision of Left Saphenous Vein, Percutaneous Endoscopic Approach (ICD-10-PCS; 2022-05-10 08:00)
PROC: 02100A3 Bypass Coronary Artery, One Artery from Coronary Artery with Autologous Arterial Tissue, Open Approach (ICD-10-PCS; 2022-05-10 08:00)
PROC: 03BC4ZZ Excision of Left Radial Artery, Percutaneous Endoscopic Approach (ICD-10-PCS; 2022-05-10 08:00)
DX: I25.110 Atherosclerotic heart disease of native coronary artery with unstable angina pectoris (principal); Z99.11 Dependence on respirator [ventilator] status; D62 Acute posthemorrhagic anemia; I11.9 Hypertensive heart disease without heart failure; I25.82 Chronic total occlusion of coronary artery; J44.9 Chronic obstructive pulmonary disease, unspecified; I73.9 Peripheral vascular disease, unspecified; G62.9 Polyneuropathy, unspecified; I48.0 Paroxysmal atrial fibrillation; E66.9 Obesity, unspecified; Z68.36 Body mass index [BMI] 36.0-36.9, adult; I65.23 Occlusion and stenosis of bilateral carotid arteries; E78.5 Hyperlipidemia, unspecified; Z96.653 Presence of artificial knee joint, bilateral; M19.90 Unspecified osteoarthritis, unspecified site; K21.9 Gastro-esophageal reflux disease without esophagitis; I25.84 Coronary atherosclerosis due to calcified coronary lesion; I44.0 Atrioventricular block, first degree; Z87.891 Personal history of nicotine dependence; Z85.46 Personal history of malignant neoplasm of prostate; Z90.79 Acquired absence of other genital organ(s); Z79.82 Long term (current) use of aspirin; Z79.899 Other long term (current) drug therapy; Z82.49 Family history of ischemic heart disease and other diseases of the circulatory system
CPT/HCPCS: 71045; 71046; 80053; 80061; 81003; 82330; 82805; 83735; 84132; 85025; 85027; 85384; 85610; 85730; 86850; 86891; 86900; 86901; 86920; 87086; 94002; 94640

== ENCOUNTER → 2022-10-04 | Outpatient (CLI) | payer MEDICARE ==
--- NOTE | 2022-10-05 12:07 | CA ---
Transthoracic Echo Report Name: Frederick Rosales Age: 72 Gender: M : 1950 Exam Date: 10/04/2022 15:03 Exam Location: [place] [facility] Ht (in): 68 Wt (lb): 235 Ordering Physician: Brandon Linares DO Attending/Referring Phys: Spool Maker Agueda Rodriguez RDCS Procedure CPT: Indications: I25.110 Cardiac Hx: CABG 4 VESSELS Technical Quality: Good Contrast 1: Total Dose (mL): Contrast 2: Total Dose (mL): MEASUREMENTS (Male / Female) Normal Values 2D ECHO LV Diastolic Diameter PLAX 5.8 cm 4.2 - 5.9 / 3.9 - 5.3 cm LV Systolic Diameter PLAX 3.7 cm IVS Diastolic Thickness 1.2 cm 0.6 - 1.0 / 0.6 - 0.9 cm LVPW Diastolic Thickness 1.2 cm 0.6 - 1.0 / 0.6 - 0.9 cm LV Relative Wall Thickness 0.4 RV Internal Dim ED PLAX 4.1 cm LA Systolic Diameter LX 4.6 cm 3.0 - 4.0 / 2.7 - 3.8 cm LV Diastolic Volume MOD 4C 139.3 cm??? LV Systolic Volume MOD 4C 60.4 cm??? LV Ejection Fraction MOD 4C 56.6 % LV Cardiac Index MOD 4C 2396.1 cm???/min???m??? LV Diastolic Length 4C 8.7 cm LV Systolic Length 4C 7.0 cm LV Diastolic Volume MOD 2C 129.1 cm??? LV Systolic Volume MOD 2C 54.6 cm??? LV Ejection Fraction MOD 2C 57.7 % LV Cardiac Index MOD 2C 2264.0 cm???/min???m??? LV Diastolic Length 2C 9.6 cm LV Systolic Length 2C 7.9 cm LA Volume 92.2 cm??? 18 - 58 / 22 - 52 cm??? M-MODE Aortic Root Diameter MM 4.0 cm MV E Point Septal Separation 0.7 cm AV Cusp Separation MM 2.3 cm DOPPLER AV Peak Velocity 137.0 cm/s AV Peak Gradient 7.5 mmHg MV Area PHT 1.6 cm??? Mitral E Point Velocity 68.0 cm/s Mitral A Point Velocity 81.0 cm/s Mitral E to A Ratio 0.8 MV Deceleration Time 471.1 ms MV E' Velocity 8.6 cm/s Mitral E to MV E' Ratio 7.9 TR Peak Velocity 241.6 cm/s TR Peak Gradient 23.3 mmHg Right Ventricular Systolic Press 27.7 mmHg FINDINGS Left Ventricle Left ventricular ejection fraction is estimated at 55-60 %. Left ventricular cavity size normal. Mildly increased septal wall thickness. Right Ventricle Moderate right ventricular dilatation. Right ventricular systolic pressure within normal limits. Mildly reduced right ventricular global systolic function. Right Atrium Normal right atrial size. Left Atrium Mildly increased left atrial diameter. Severely increased left atrial volume. Mildly increased left atrial area. Mitral Valve Structurally normal mitral valve. Mild mitral annular calcification. Mild mitral regurgitation. Aortic Valve Trileaflet aortic valve. Aortic valve sclerosis. Tricuspid Valve Structurally normal tricuspid valve. Mild tricuspid regurgitation. Pulmonic Valve Structurally normal pulmonic valve. No pulmonic regurgitation. Pericardium No pericardial effusion. Normal pericardium. Aorta Mild aortic dilatation at the level of the sinuses of valsalva 40 mm CONCLUSIONS 1. Normal left ventricle size and systolic function 2. Mild mitral and tricuspid regurgitation with no evidence of pulmonary hypertension. Previewed by: Dr. Endy Dietrich MD (Electronically Signed) Final Date: 05 October 2022 12:06
== END | disposition home or self-care (01) ==
LOC: RADECHMAIN 14:40
PROVIDERS: ATTEND Family Medicine
DX: I08.1 Rheumatic disorders of both mitral and tricuspid valves (principal); I25.110 Atherosclerotic heart disease of native coronary artery with unstable angina pectoris
CPT/HCPCS: 93306

== ENCOUNTER → 2023-08-29 | Outpatient (CLI) | payer MEDICARE | END | disposition home or self-care (01) | LOC: LABPAT 10:04 | PROVIDERS: ATTEND Family Medicine | DX: I25.10 Atherosclerotic heart disease of native coronary artery without angina pectoris (principal); E11.9 Type 2 diabetes mellitus without complications; I73.9 Peripheral vascular disease, unspecified | CPT/HCPCS: 83036; 85379 ==

== ENCOUNTER → 2023-08-30 | Outpatient (CLI) | payer MEDICARE ==
--- NOTE | 2023-08-30 14:28 | US ---
EXAMINATION TYPE: US venous doppler duplex LE BI DATE OF EXAM: 08/30/2023 2:13 PM COMPARISON: NONE CLINICAL INDICATION: Male, 73 years old with history of R79.1 ABNORMAL COAGULATION PROFILE; Elevated D-Dimer. History of CABG 1-2 years ago SIDE PERFORMED: bilateral TECHNIQUE: The lower extremity deep venous system is examined utilizing real time linear array sonog david with graded compression, doppler sonography and color-flow sonography. VESSELS IMAGED: Common Femoral Vein Deep Femoral Vein Greater Saphenous Vein * Femoral Vein Popliteal Vein Small Saphenous Vein * Proximal Calf Veins (* superficial vessels) Right Leg: No evidence of DVT Left Leg: No evidence of DVT IMPRESSION: Grayscale, color doppler, spectral doppler imaging performed of the deep veins of the lo wer extremities. There is normal flow, compressibility, vascular waveforms.
== END | disposition home or self-care (01) ==
LOC: RADUSWWP 13:33
PROVIDERS: ATTEND Family Medicine
DX: R79.1 Abnormal coagulation profile (principal); R79.89 Other specified abnormal findings of blood chemistry
CPT/HCPCS: 93970

== ENCOUNTER → 2023-12-19 | Outpatient (CLI) | payer MEDICARE ==
[2023-12-19 16:05] LABS: Appearance,Urine Clear (Clear); Bilirubin,Urine Negative (Negative); Blood,Urine Negative (Negative); Color,Urine Yellow (Yellow); Ketones,Urine Negative (Negative); Nitrite,Urine Negative (Negative); Specific Gravity,Urine 1.019 (1.001-1.030)
[2023-12-19 16:11] LABS: Basophils # (A) 0.05 X 10*3/uL (0.00-0.10); Basophils % (A) 0.8 %; Eosinophils % (A) 6.1 %; HCT 38.2 % (39.6-50.0); HGB 12.4 g/dL (13.0-17.0); Lymphocytes # (A) 1.77 X 10*3/uL (0.90-5.00); Lymphocytes % (A) 26.9 %; MCH 28.9 pg (27.0-32.0); MCHC 32.5 g/dL (32.0-37.0); Mean Platelet Volume 10.6 FL (9.5-12.2); Monocytes # (A) 0.51 X 10*3/uL (0.20-1.00); Monocytes % (A) 7.7 %; NRBC Per 100 WBC 0 X 10*3/uL (0.00-0.01); Neutrophils # (A) 3.83 X 10*3/uL (1.80-7.70); Platelet Count 230 X 10*3/uL (140-440); RBC 4.29 X 10*6/uL (4.40-5.60); RDW 14.3 % (11.5-14.5); WBC 6.59 X 10*3/uL (4.50-10.00)
[2023-12-19 16:27] LABS: BUN/Creat Ratio 18.78 Ratio (12.00-20.00); Blood Urea Nitrogen 16.9 mg/dL (9.0-27.0); Calcium 9.7 mg/dL (8.7-10.3); Carbon Dioxide 25.1 mmol/L (21.6-31.8); Chloride 102 mmol/L (96-109); Glucose 106 mg/dL (70-110); Potassium 3.9 mmol/L (3.5-5.5); Sodium 139 mmol/L (135-145)
== END | disposition home or self-care (01) ==
LOC: LABPAT 10:23
PROVIDERS: ATTEND Urology
DX: Z01.812 Encounter for preprocedural laboratory examination (principal); N39.3 Stress incontinence (female) (male)
CPT/HCPCS: 80048; 81003; 85025; 87086

== ENCOUNTER 2023-12-28 06:06 | Day surgery (SDC) | payer MEDICARE ==
[2023-12-22 14:30] VITALS: BMI 34.9
--- NOTE | 2023-12-27 22:24 | P.HPIHPCON ---
History of Present Illness H&P Date: 12/27/23 Chief Complaint: Stress urinary incontinence This is a 73-year-old male with history of prostate cancer treated with the perineal prostatectomy, developed stress urinary incontinence postoperatively, which has worsened over time. Underwent an office cystoscopy that poor coa ptation of the urethra. Urodynamic showed evidence of stress urinary incontinence, and uninhibited detrusor contraction, underwent Botox for his uninhibited detrusor contraction without significant symptoms improvement. He is mainly bothered by his stress incontinence at this time. option of an artificial urethral sphincter versus sling versus bulking agent was discussed with him in details. He agreed to proceed with an artificial urethral sphincter. Aware of the risk which include but not limited to bleeding, infection, persistent incontinence, device malfunction. Discussed also potentia l of device erosion into the urethra. All his questions were answered in regards to the procedure. He understood all the risk and agreed to proceed Consent for Procedure: Consent for Procedure: I have explained the operation/procedure to the patient, including the risks, benefits, side effects, alternative therapies (including not receiving the proposed treatment or service), the likelihood of the patient achieving his/her goals, and potential recuperation problems for the procedure/sedation/analgesia, as well as any blood products, if indicated. I also explained to the patient the risks, benefits and side effects of the alternatives, as well as the risks related to not receiving the proposed procedure, care, treatment, or services. Past Medical History Past Medical History: Coronary Artery Disease (CAD), Cancer, GERD/Reflux, Hearing Disorder / Deafness, Hyperlipidemia, Hypertension, Osteoarthritis (OA) Additional Past Medical History / Comment(s): DDD /SCIATICA PAIN., PROSTATE CANCER WITH SURGERY- no chemo no radiation. recent shortness of breath with activity. leaking urine History of Any Multi-Drug Resistant Organisms: None Reported Past Surgical History: Coronary Bypass/CABG, Heart Catheterization, Prostate Surgery Additional Past Surgical History / Comment(s): TOTAL RIGHT and left KNEE replacements, CABG x4 05/10/22- Past Anesthesia/Blood Transfusion Reactions: No Reported Reaction Smoking Status: Former smoker - Past Family History Mother Family Medical History: Cancer Additional Family Medical History / Comment(s): COLON CANCER Father Family Medical History: Coronary Artery Disease (CAD), Myocardial Infarction ([place] ) Medications and Allergies Home Medications Medication Instructions Recorded Confirmed Type Aspirin [Adult Low Dose Aspirin EC] 81 mg PO HS 07/03/20 12/22/23 History Atorvastatin Calcium 40 mg PO QAM 04/23/22 12/22/23 History Acetaminophen Tab [Tylenol] 1,000 mg PO Q6HR PRN tab 05/14/22 12/22/23 Rx Metoprolol Tartrate [Lopressor] 50 mg PO BID #60 tab 05/14/22 12/22/23 Rx Pantoprazole [Protonix] 40 mg PO AC-BRKFST #30 tab 05/14/22 12/22/23 Rx Cinnamon (Unknown Dose) 1 dose PO HS 12/22/23 History D3 Vitamin(Unknown Dose) 50 mg PO HS 12/22/23 History Dextroamphetamine/Amphetamine 50 mg PO 1200 12/22/23 12/22/23 History [Adderall] Ferrous Sulfate [Feosol] 325 mg PO QAM 12/22/23 12/22/23 History Losartan Potassium 100 mg PO QAM 12/22/23 12/22/23 History Magnesium(Unknown Dose) 1 dose PO HS 12/22/23 History Multivitamins, Thera [Multivitamin 1 each PO QAM 12/22/23 12/22/23 History (formulary)] amLODIPine [Norvasc] 5 mg PO BID 12/22/23 12/22/23 History hydroCHLOROthiazide [Hydrodiuril] 25 mg PO QAM 12/22/23 12/22/23 History Allergies Allergy/AdvReac Type Severity Reaction Status Date / Time No Known Allergies Allergy Verified 12/22/23 14:01 Surgical - Exam - General no distress, no pain - Eyes normal ocular movement, no pale - ENT normal nares, normal mucosa - Respiratory normal expansion, normal respiratory effort - Abdomen Abdomen: soft, non tender Assessment and Plan Assessment: OR For AUS placement
[2023-12-28] MEDS ORDERED: LIDOCAINE 1% (10MG/ML) FOR IV START INTRADERMA PRN (06:22)
[2023-12-28] MEDS ORDERED: HYDROmorphone 0.5 MG/0.5 ML SYRINGE IVP PRN (07:00)
[2023-12-28] MEDS: ONDANSETRON 4 MG/2 ML VIAL IVP ONE (07:21)
[2023-12-28] MEDS: LACTATED RINGERS 1,000 ML IV SCH (07:21)
[2023-12-28] MEDS: DEXAMETHASONE SOD PHOSPHATE 4 MG/ML 1 ML VIAL IVP STA (07:22)
[2023-12-28] MEDS: IV FLUID CONTINUATION 1,000 ML IV ONE ×2 (07:24→10:05)
[2023-12-28] MEDS: VANCOMYCIN 750 MG in SODIUM CHLORIDE 0.9% 250 ML IVPB PRN (07:37)
[2023-12-28] MEDS ORDERED: HYDROmorphone (PF) 1 MG/ML ONE (07:38)
[2023-12-28] MEDS ORDERED: fentaNYL (PF) 50 MCG/ML 2 ML AMP ONE (07:38)
[2023-12-28] MEDS ORDERED: LIDOCAINE 1% INJ 10MG/ML (20 ML MDV) ONE (07:38)
[2023-12-28] MEDS ORDERED: ePHEDrine 50 MG/ML 1 ML VIAL ONE (07:38)
[2023-12-28] MEDS ORDERED: PROPOFOL 10 MG/ML 20 ML VIAL IV ONE (07:38)
[2023-12-28] MEDS ORDERED: MIDAZOLAM 2 MG/2 ML VIAL ONE (07:38)
[2023-12-28] MEDS: GENTAMICIN 120 MG in SODIUM CHLORIDE 0.9% 100 ML IVPB PRN (07:43)
[2023-12-28] MEDS: GENTAMICIN 80 MG in SODIUM CHLORIDE 0.9% 200 ML IRRIGATION ONE (08:11)
[2023-12-28 09:30] VITALS: TEMP 97.3
[2023-12-28 10:33] VITALS: BP 146/76; PULSE 65; RESP 18
--- NOTE | 2023-12-29 07:57 | P.OP ---
Date of Procedure: 12/28/23 Preoperative Diagnosis: Stress urinary incontinence Postoperative Diagnosis: Same Procedure(s) Performed: Insertion of an artificial urethral sphincter, cystoscopy Implants: [employer] AUS Anesthesia: SHAYANA Surgeon: Colin Young Shucker #1: Ted Valenzuela Estimated Blood Loss (ml): 25 Pathology: none sent Condition: stable Disposition: PACU Indications for Procedure: This is a 73-year-old male with history of prostate cancer treated with the perineal prostatectomy, developed stress urinary incontinence postoperatively, which has worsened over time. Underwent an office cystoscopy that poor coaptation of the urethra. Urodynamic showed evidence of stress urinary incontinence, and uninhibited detrusor contraction, underwent Botox for his uninhibited detrusor contraction without significant symptoms improvement. He is mainly bothered by his stress incontinence at this time. option of an artificial urethral sphincter versus sling versus bulking agent was discussed with him in details. He agreed to proceed with an artificial urethral sphincter. Aware of the risk which include but not limited to bleeding, infection, persistent incontinence, device malfunction. Discussed also potential of device erosion into the urethra. All his questions were answered in regards to the procedure. He understood all the risk and agreed to proceed Description of Procedure: The patient is brought to the operating suite. He is given a successful general endotracheal anesthesia. He is prepped and draped sterilely. A 12-Kyrgyz coud-tip catheter is introduced in the bladder with clear urine return. A midline scrotal incision is made. Retraction secured with the ring retractor. The urethra is felt. I dissect down to the urethra, . I tediously dissect around the urethra making sure not to injure the urethra. I do this as far proximal as possible. Once I'm completely around the urethra I created a space large enough to place a sphincter. . I then introduced the sizer around the urethra. I measured around the cuff and a 4 cm cuff was placed I then make a small left inguinal incision . I dissect down to the rectus fascia. It is open. Created and reservoir. I then tunnel a space into the right groin through the external ring. Pass this down into the scrotum. I then placed the balloon reservoir end of the prevesical space and fill a 26 mL of saline. I closed the rectus fascia over with 0 PDS. I then placed the pump in a separate compartment in the scrotum superficial and anterior to the right testicle. I then placed the cuffs which had been prepared around the urethra. I then connected the reservoir to the pump using a straight connect. I then connected the cuffs to the pump using a Y connector. I then cystoscoped the urethra with a flexible cystoscope and I can see the indentation of the sphincters and there is no evidence of injury to the urethra. I then depressed the pump twice out to refill. I then deactivate the sphincters and reactivated to make sure it works does. I then deactivate the sphincter using the button on the pump. The suprapubic incision was closed with 3-0 chromic and a 4-0 Monocryl. The scrotal incisions are closed with 3-0 chromic deep and superficially. I then closed the skin with 3-0 chromic. He Irrigation was antibiotic irrigation throughout the procedure. The patient is awakened and returned recovery room good condition. The sphincter remained is activated for 6 weeks.
== END 2023-12-28 12:22 | disposition home or self-care (01) ==
LOC: OR 06:06
PROVIDERS: ATTEND Urology
DX: N39.3 Stress incontinence (female) (male) (principal); E78.5 Hyperlipidemia, unspecified; I10 Essential (primary) hypertension; I25.10 Atherosclerotic heart disease of native coronary artery without angina pectoris; K21.9 Gastro-esophageal reflux disease without esophagitis; M19.90 Unspecified osteoarthritis, unspecified site; Z80.0 Family history of malignant neoplasm of digestive organs; Z85.46 Personal history of malignant neoplasm of prostate; Z87.891 Personal history of nicotine dependence; Z95.1 Presence of aortocoronary bypass graft; Z82.49 Family history of ischemic heart disease and other diseases of the circulatory system; Z79.82 Long term (current) use of aspirin; Z79.02 Long term (current) use of antithrombotics/antiplatelets; Z79.1 Long term (current) use of non-steroidal anti-inflammatories (NSAID); Z79.899 Other long term (current) drug therapy

== ENCOUNTER 2024-02-17 08:42 | Emergency (ER) | payer MEDICARE ==
[2024-02-17 08:52] VITALS: RESP 18; TEMP 98.2
--- NOTE | 2024-02-17 09:15 | ED ---
General Adult HPI - General Chief complaint: Urogenital Stated complaint: post op issues/scrotum enlarged/painful Time Seen by Provider: 02/17/24 08:53 Source: patient, RN notes reviewed Mode of arrival: ambulatory Limitations: no limitations - History of Present Illness Initial comments: Patient is a 74-year-old male presenting to the emergency department with concerns for scrotal swelling. Symptoms have progressed over the past week. Patient has moderate discomfort. No erythema. Patient did have urinary sphincter device placed 2 months ago and has had no problems up to the past week. Patient did follow-up with his urologist last week and the device was turned off. Patient is now incontinent of urine again as he was previously. No abdominal pain or distention. No fever or redness. - Related Data Home Medications Medication Instructions Recorded Confirmed Aspirin [Adult Low Dose Aspirin EC] 81 mg PO HS 07/03/20 02/17/24 Atorvastatin Calcium 40 mg PO DAILY 04/23/22 02/17/24 Cinnamon (Unknown Dose) 1 tab PO HS 12/22/23 02/17/24 D3 Vitamin(Unknown Dose) 1 tab PO HS 12/22/23 02/17/24 Dextroamphetamine/Amphetamine 30 mg PO DAILY@1200 12/22/23 02/17/24 [Adderall] Ferrous Sulfate [Feosol] 325 mg PO DAILY 12/22/23 02/17/24 Losartan Potassium 100 mg PO DAILY 12/22/23 02/17/24 Magnesium(Unknown Dose) 1 tab PO HS 12/22/23 02/17/24 Multivitamins, Thera [Multivitamin 1 tab PO DAILY 12/22/23 02/17/24 (formulary)] amLODIPine [Norvasc] 5 mg PO BID 12/22/23 02/17/24 hydroCHLOROthiazide [Hydrodiuril] 25 mg PO DAILY 12/22/23 02/17/24 Cephalexin [Keflex] 500 mg PO TID 02/17/24 02/17/24 Nystatin 100,000Unit/gm Cream 1 applic TOPICAL BID 02/17/24 02/17/24 [Mycostatin Cream] Sildenafil Citrate 50 mg PO Q72H PRN 02/17/24 02/17/24 Previous Rx's Medication Instructions Recorded Acetaminophen Tab [Tylenol] 1,000 mg PO Q6HR PRN tab 05/14/22 Metoprolol Tartrate [Lopressor] 50 mg PO BID #60 tab 05/14/22 Pantoprazole [Protonix] 40 mg PO AC-BRKFST #30 tab 05/14/22 Sulfamethox-Tmp 800-160Mg [Bactrim 1 each PO Q12HR #20 tab 02/17/24 DS 800-160 mg] Allergies Allergy/AdvReac Type Severity Reaction Status Date / Time No Known Allergies Allergy Verified 02/17/24 11:05 Review of Systems ROS Statement: Those systems with pertinent positive or pertinent negative responses have been documented in the HPI. ROS Other: All systems not noted in ROS Statement are negative. Constitutional: Denies: fever Eyes: Denies: eye pain ENT: Denies: ear pain Respiratory: Denies: cough Cardiovascular: Denies: chest pain Gastrointestinal: Denies: abdominal pain, vomiting Genitourinary: Reports: as per HPI Musculoskeletal: Denies: back pain Past Medical History Past Medical History: Cancer, GERD/Reflux, Hyperlipidemia, Hypertension, Osteoarthritis (OA), Prostate Disorder Additional Past Medical History / Comment(s): DDD /SCIATICA PAIN., PROSTATE CANCER WITH SURGERY. recent shortness of breath with activity. leaking urine History of Any Multi-Drug Resistant Organisms: None Reported Past Surgical History: Prostate Surgery Additional Past Surgical History / Comment(s): Prosthetic urinary sphincter Past Anesthesia/Blood Transfusion Reactions: No Reported Reaction Past Psychological History: No Psychological Hx Reported Smoking Status: Former smoker Past Alcohol Use History: None Reported Past Drug Use History: None Reported - Past Family History Mother Family Medical History: Cancer Additional Family Medical History / Comment(s): COLON CANCER Father Family Medical History: Coronary Artery Disease (CAD), Myocardial Infarction ([place]) General Exam Limitations: no limitations General appearance: alert, in no apparent distress Head exam: Present: normocephalic Eye exam: Present: normal appearance Neck exam: Present: normal inspection Respiratory exam: Present: normal lung sounds bilaterally Cardiovascular Exam: Present: regular rate, normal rhythm GI/Abdominal exam: Present: soft. Absent: tenderness exam: Present: scrotal swelling (With mild tenderness. No erythema. Swelling is diffuse) Extremities exam: Present: normal inspection Neurological exam: Present: alert Psychiatric exam: Present: normal affect, normal mood Skin exam: Present: normal color Course Vital Signs 02/17/24 02/17/24 08:47 11:33 Temperature 98.2 F Pulse Rate 79 68 Respiratory 18 18 Rate Blood Pressure 164/82 130/62 O2 Sat by Pulse 98 96 Oximetry EKG Findings - EKG Results: EKG: interpreted by MARIA ELENA (First-degree AV block with a DE of 239. Nonspecific T waves.), sinus rhythm, normal axis, normal QRS Medical Decision Making - Medical Decision Making Was pt. sent in by a medical professional or institution (, [facility], MANAGER ACCOUNT MANAGEMENT, urgent ca re, hospital, or fci...) When possible be specific @ -No Did you speak to anyone other than the patient for history (EMS, parent, family, police, friend...)? What history was obtained from this source @ -No Did you review nursing and triage notes (agree or disagree)? Why? @ -I reviewed and agree with nursing and triage notes Were old charts reviewed (outside hosp., previous admission, EMS record, old EKG, old radiological studies, urgent care reports/EKG's, fci records)? Report findings @ -No old charts were reviewed Differential Diagnosis (chest pain, altered mental status, abdominal pain women, abdominal pain men, vaginal bleeding, weakness, fever, dyspnea, syncope, headache, dizziness, GI bleed, back pain, seizure, CVA, palpatations, mental health, musculoskeletal)? @ -Differential Abdominal Pain Men: Appendicitis, cholecystitis, diverticulosis, ischemic bowel, pancreatitis, hepatitis, UTI, gastroenteritis, AAA, incarcerated hernia, bowel obstruction, constipation, inflammatory bowel, hepatitis, peptic ulcer disease, splenic infarction, perforated viscus, testicular torsion, this is not meant to be an all-inclusive list EKG interpreted by me (3pts min.). @ -As above X-rays interpreted by me (1pt min.). @ -None done CT interpreted by me (1pt min.). @ -CT scan shows scrotal edema U/S interpreted by me (1pt. min.). @ -Ultrasound shows scrotal edema What testing was considered but not performed or refused? (CT, X-rays, U/S, labs)? Why? @ -None What meds were considered but not given or refused? Why? @ -None Did you discuss the management of the patient with other professionals (professionals i.e. , [facility], MANAGER ACCOUNT MANAGEMENT, lab, RT, psych nurse, social service coordinator, optical lens manufacturing tech, teacher, corporate responsibility officer, continuous pillowcase cutter)? Give summary @ -Case was discussed with Dr. Coats who did come and evaluate patient. He will discharge patient with follow-up next week and recommends changing antibiotics to Bactrim Was smoking cessation discussed for >3mins.? @ -No Was critical care preformed (if so, how long)? @ -No Were there social determinants of health that impacted care today? How? (Homelessness, low income, unemployed, alcoholism, drug addiction, transportat ion, low edu. Level, literacy, decrease access to med. care, correction, rehab)? @ -No Was there de-escalation of care discussed even if they declined (Discuss DNR or withdrawal of care, Hospice)? DNR status @ -No What co-morbidities impacted this encounter? (DM, HTN, Smoking, COPD, CAD, Cancer, CVA, ARF, Chemo, Hep., AIDS, mental health diagnosis, sleep apnea, morbid obesity)? @ -Patient is approximately 2 months postop Was patient admitted / discharged? Hospital course, mention meds given and rou te, prescriptions, significant lab abnormalities, going to OR and other pertinent info. @ -Patient presents with some increased scrotal swelling and discomfort. White blood cell count and imaging unremarkable. Patient seen by urology with recommendations. Patient will be discharged with follow-up next week Undiagnosed new problem with uncertain prognosis? @ -No Drug Therapy requiring intensive monitoring for toxicity (Heparin, Nitro, Insulin, Cardizem)? @ -No Were any procedures done? @ -No Diagnosis/symptom? @ -Scrotal edema Acute, or Chronic, or Acute on Chronic? @ -Acute Uncomplicated (without systemic symptoms) or Complicated (systemic symptoms)? @ -Default Side effects of treatment? @ -No Exacerbation, Progression, or Severe Exacerbation? @ -No Poses a threat to life or bodily function? How? (Chest pain, [place], [place], pneumonia, PE, COPD, DKA, ARF, appy, cholecystitis, CVA, Diverticulitis, Homicidal, Suicidal, threat to staff... and all critical care pts) @ -No - Lab Data Result diagrams: 02/17/24 10:05 02/17/24 10:05 Lab Results 02/17/24 02/17/24 02/17/24 Range/Units 10:05 10:05 10:05 WBC 9.8 (3.8-10.6) k/uL RBC 4.79 (4.30-5.90) m/uL Hgb 13.4 (13.0-17.5) gm/dL Hct 42.1 (39.0-53.0) % MCV 87.9 (80.0-100.0) fL MCH 28.0 (25.0-35.0) pg MCHC 31.9 (31.0-37.0) g/dL RDW 14.3 (11.5-15.5) % Plt Count 278 (150-450) k/uL MPV 7.0 Neutrophils % 78 % Lymphocytes % 11 % Monocytes % 5 % Eosinophils % 4 % Basophils % 0 % Neutrophils # 7.6 (1.3-7.7) k/uL Lymphocytes # 1.1 (1.0-4.8) k/uL Monocytes # 0.5 (0-1.0) k/uL Eosinophils # 0.4 (0-0.7) k/uL Basophils # 0.0 (0-0.2) k/uL PT 10.3 (10.0-12.5) sec INR 0.9 (<1.2) APTT 29.1 (22.0-30.0) sec Sodium 139 (137-145) mmol/L Potassium 4.1 (3.5-5.1) mmol/L Chloride 101 (98-107) mmol/L Carbon Dioxide 31 H (22-30) mmol/L Anion Gap 7 mmol/L BUN 15 (9-20) mg/dL Creatinine 0.84 (0.66-1.25) mg/dL Est GFR (CKD-EPI)AfAm >90 (>60 ml/min/1.73 sqM) Est GFR (CKD-EPI)NonAf 86 (>60 ml/min/1.73 sqM) Glucose 98 (74-99) mg/dL Plasma Lactic Acid Bruce (0.7-2.0) mmol/L Calcium 9.7 (8.4-10.2) mg/dL Total Bilirubin 0.9 (0.2-1.3) mg/dL AST 25 (17-59) U/L ALT 29 (4-49) U/L Alkaline Phosphatase 98 (38-126) U/L Total Protein 7.6 (6.3-8.2) g/dL Albumin 4.7 (3.5-5.0) g/dL Urine Color Urine Appearance (Clear) Urine pH (5.0-8.0) Ur Specific [place] (1.001-1.035) Urine Protein (Negative) Urine Glucose (UA) (Negative) Urine Ketones (Negative) Urine Blood (Negative) Urine Nitrite (Negative) Urine Bilirubin (Negative) Urine Urobilinogen (<2.0) mg/dL Ur Leukocyte Esterase (Negative) 02/17/24 02/17/24 Range/Units 10:05 10:05 WBC (3.8-10.6) k/uL RBC (4.30-5.90) m/uL Hgb (13.0-17.5) gm/dL Hct (39.0-53.0) % MCV (80.0-100.0) fL MCH (25.0-35.0) pg MCHC (31.0-37.0) g/dL RDW (11.5-15.5) % Plt Count (150-450) k/uL MPV Neutrophils % % Lymphocytes % % Monocytes % % Eosinophils % % Basophils % % Neutrophils # (1.3-7.7) k/uL Lymphocytes # (1.0-4.8) k/uL Monocytes # (0-1.0) k/uL Eosinophils # (0-0.7) k/uL Basophils # (0-0.2) k/uL PT (10.0-12.5) sec INR (<1.2) APTT (22.0-30.0) sec Sodium (137-145) mmol/L Potassium (3.5-5.1) mmol/L Chloride (98-107) mmol/L Carbon Dioxide (22-30) mmol/L Anion Gap mmol/L BUN (9-20) mg/dL Creatinine (0.66-1.25) mg/dL Est GFR (CKD-EPI)AfAm (>60 ml/min/1.73 sqM) Est GFR (CKD-EPI)NonAf (>60 ml/min/1.73 sqM) Glucose (74-99) mg/dL Plasma Lactic Acid Bruce 1.4 (0.7-2.0) mmol/L Calcium (8.4-10.2) mg/dL Total Bilirubin (0.2-1.3) mg/dL AST (17-59) U/L ALT (4-49) U/L Alkaline Phosphatase (38-126) U/L Total Protein (6.3-8.2) g/dL Albumin (3.5-5.0) g/dL Urine Color Yellow Urine Appearance Clear (Clear) Urine pH 7.5 (5.0-8.0) Ur Specific [place] 1.020 (1.001-1.035) Urine Protein Negative (Negative) Urine Glucose (UA) Negative (Negative) Urine Ketones Negative (Negative) Urine Blood Negative (Negative) Urine Nitrite Negative (Negative) Urine Bilirubin Negative (Negative) Urine Urobilinogen <2.0 (<2.0) mg/dL Ur Leukocyte Esterase Negative (Negative) Disposition Clinical Impression: Scrotal edema Disposition: HOME SELF-CARE Condition: Stable Instructions (If sedation given, give patient instructions): Edema (ED) Additional Instructions: Please follow-up with Dr. garibay on Tuesday. Please start new antibiotics today, prescription sent to pharmacy. Return for fever, increased pain, increased swelling, redness, change or worsening symptoms or any other concerns Prescriptions: Sulfamethox-Tmp 800-160Mg [Bactrim DS 800-160 mg] 1 each PO Q12HR #20 tab Is patient prescribed a controlled substance at d/c from ED?: No Referrals: Brandon Linares DO [Primary Care Provider] - 1-2 days Colin Garibay MD [STAFF PHYSICIAN] - 1-2 days Time of Disposition: 13:12
--- NOTE | 2024-02-17 10:11 | US ---
EXAMINATION TYPE: US scrotum with doppler. DATE OF EXAM: 02/17/2024 COMPARISON: NONE CLINICAL INDICATION: Male, 74 years old with history of swelling; Patient has a prosthetic urinary pu mp post prostate cancer surgery. Swelling in testicles started Tuesday, patient went to urologist Loretta magana, urologist shut pump off and gave patient medications for yeast infection, patient stated swelling has gotten worse since. TECHNIQUE: Grayscale, color Doppler and spectral Doppler imaging of the scrotum. FINDINGS: EXAM MEASUREMENTS: TESTICLES: Right Testicle: 4.7 x 2.6 x 3.7 cm Left Testicle: 5.5 x 2.2 x 3.1 cm EPIDIDYMIS HEAD: Right Epididymis: 1.5 x 0.8 x 2.7 cm Left Epididymis: 1.1 x 1.1 x 2.4 cm Doppler performed to assess for testicular vascularity; good bilateral color flow and waveforms are s een. There is no evidence of testicular torsion. Presence of hydroceles: No Presence of varicoceles: No Complex area without blood flow with foreign body seen between testicles, area = 7.8 x 5.1 x 7.5 cm . This demonstrates multiple thin septations without internal color flow. There is some hyperemia moriah g surrounding the collection. Foreign body assumed to be urinary pump can be followed from complex area, along the LLQ skin surface , to site of incision within the LLQ. "Button" to pump seen within complex area, refer to image 34, right side of image. Not able to find where device ends opposite from origin within LLQ Bladder scanned - not fully distended, appears WNL as visualized. IMPRESSION: 1. No evidence of testicular torsion or intratesticular mass. 2. Indeterminate multiseptated fluid collection between both testicles abutting foreign body consiste nt with reported prosthetic urinary pump. No internal color flow. May representing complicated hydroc iram from inflammation/infection versus other etiologies. Urology consult is recommended. [facility], , 02/17/2024 10:09 AM
[2024-02-17] MEDS: LEVOFLOXACIN 750MG-D5W PMX 750 MG in DEXTROSE/WATER 1 150ML.BAG IVPB STA (10:27)
[2024-02-17 10:41] LABS: Basophils % (A) 0 %; Eosinophils # (A) 0.4 k/uL (0-0.7); Eosinophils % (A) 4 %; HCT 42.1 % (39.0-53.0); HGB 13.4 gm/dL (13.0-17.5); Lymphocytes # (A) 1.1 k/uL (1.0-4.8); Lymphocytes % (A) 11 %; MCHC 31.9 g/dL (31.0-37.0); MCV 87.9 fL (80.0-100.0); Monocytes # (A) 0.5 k/uL (0-1.0); Monocytes % (A) 5 %; Neutrophils # (A) 7.6 k/uL (1.3-7.7); Neutrophils % (A) 78 %; Platelet Count 278 k/uL (150-450); RBC 4.79 m/uL (4.30-5.90); RDW 14.3 % (11.5-15.5); WBC 9.8 k/uL (3.8-10.6)
[2024-02-17 11:00] LABS: ALT 29 U/L (4-49); AST 25 U/L (17-59); African American GFR (CKD) >90 (>60 ml/min/1.73 sqM); Albumin 4.7 g/dL (3.5-5.0); Alkaline Phosphatase 98 U/L (38-126); Anion Gap 7 mmol/L; Blood Urea Nitrogen 15 mg/dL (9-20); Calcium 9.7 mg/dL (8.4-10.2); Carbon Dioxide 31 mmol/L (22-30); Chloride 101 mmol/L (98-107); Glucose 98 mg/dL (74-99); Non-African American GFR(CKD) 86 (>60 ml/min/1.73 sqM); Potassium 4.1 mmol/L (3.5-5.1); Sodium 139 mmol/L (137-145); Total Bilirubin 0.9 mg/dL (0.2-1.3); Total Protein 7.6 g/dL (6.3-8.2)
[2024-02-17 11:09] LABS: Appearance,Urine Clear (Clear); Bilirubin,Urine Negative (Negative); Blood,Urine Negative (Negative); Color,Urine Yellow; Glucose,Urine (UA) Negative (Negative); Ketones,Urine Negative (Negative); Leukocyte Esterase,Urine Negative (Negative); Nitrite,Urine Negative (Negative); PH, Urine 7.5 (5.0-8.0); Protein,Urine Negative (Negative); Urobilinogen,Urine <2.0 mg/dL (<2.0)
[2024-02-17 11:16] LABS: INR 0.9 (<1.2); Partial Thromboplastin Time 29.1 sec (22.0-30.0); Prothrombin Time 10.3 sec (10.0-12.5)
--- NOTE | 2024-02-17 11:24 | CT ---
EXAMINATION TYPE: CT pelvis wo con CT DLP: 830.9 mGycm, Automated exposure control for dose reduction was used. DATE OF EXAM: 02/17/2024 11:06 AM COMPARISON: Scrotal ultrasound 02/17/2024 CLINICAL INDICATION:Male, 74 years old with history of scrotal swelling; scrotal swelling TECHNIQUE: Standard CT of the pelvis without IV or oral contrast. Lack of IV or oral contrast limit s evaluation of solid and hollow organ viscera. Coronal and sagittal reformats were performed. FINDINGS: KIDNEYS: No hydronephrosis. Prominent right extrarenal pelvis. BLADDER: Unremarkable REPRODUCTIVE: The prostate gland appears surgically absent. Postsurgical changes from artificially ur ethral sphincter with reservoir within the left anterior abdominal region. The visualized portion of the device appears intact however there is a small focal region of caliber while change of the device (series 202, image 32). There is a organized fluid collection measuring 7.9 x 5.7 x 7.4 cm in AP, TV , CC dimensions surrounding the proximal device within the scrotum. BOWEL: Distal colonic diverticulosis. The appendix is within normal limits. No evidence of bowel obst ruction. PERITONEUM: No evidence of pneumoperitoneum or free fluid. VASCULATURE: Moderate atherosclerotic calcifications are present throughout the abdominal aorta and i ts branches. No evidence of aortic aneurysm. MUSCULOSKELETAL: No acute osseous abnormalities. Moderate degenerative disc disease changes of the jayy mbar spine. LYMPH NODES: No gross evidence for lymphadenopathy. SOFT TISSUE/ABDOMINAL WALL: Tiny fat filled umbilical hernia. Scrotal edema identified. IMPRESSION: 1. Organized fluid collection corresponding to ultrasound surrounding the artificial urethral sphinc ter device. No obvious discontinuity of the device however there is a small focal region of increased caliber change within the scrotum. Cannot exclude tiny disruption within the device. Organized fluid collection is indeterminate with no internal gas identified. May represent a reactive fluid collecti on or leakage from device. Abscess is not excluded. 2. Colonic diverticulosis. [facility], , 02/17/2024 11:22 AM
[2024-02-17 13:27] VITALS: BP 132/67; PULSE 70
== END 2024-02-17 13:28 | disposition home or self-care (01) ==
LOC: EC 08:42
CPT/HCPCS: 36415; 51798; 72192; 76870; 80053; 81003; 83605; 85025; 85610; 85730; 87040; 87086; 93005; 93975; 96365; 96366; 99284

== ENCOUNTER 2024-03-05 08:07 | Day surgery (SDC) | payer MEDICARE ==
[2024-03-01 11:31] VITALS: BMI 33.9
[~2024-03-05 08:07] MED LIST changes: -ALBUMIN HUMAN 25% 50 ML IV ONE; -ALBUMIN HUMAN 5% 500 ML IVPB ONE; -ASPIRIN 325 MG TAB PO ONE; -ATORVASTATIN 10 MG TAB PO ONE; -CALCIUM CHLORIDE 100 MG/ML 10 ML SYRINGE IV ONE; -CHLORHEXIDINE GLUCONATE 15 ML CUP MUCOUS MEM ONE; -CLEVIDIPINE BUTYRATE 25 MG in EMPTY BAG 1 BAG IV ONE; -DILTIAZEM 125 MG in SODIUM CHLORIDE 0.9% 100 ML IV ONE; -ELECTROLYTE-A SOLUTION 1,000 ML with POTASSIUM CHLORIDE 100 MEQ, MAGNESIUM SULFATE 16 M... IV ONE; -ELECTROLYTE-A SOLUTION 1,000 ML with POTASSIUM CHLORIDE 40 MEQ, MAGNESIUM SULFATE 16 ME... IV ONE; -HEPARIN SODIUM 1,000 UN/ML (10ML VL) IV ONE; -HEPARIN SODIUM,PORCINE 5,000 UNIT in SODIUM CHLORIDE 0.9% 500 ML 500 ML IV ONE; -INSULIN REGULAR 100 UNIT in SODIUM CHLORIDE 0.9% 100 ML IV ONE; -LACTATED RINGERS 1,000 ML IV ONE; +LACTATED RINGERS 1,000 ML IV SCH; -MAGNESIUM SULFATE 16.24 MEQ in EMPTY SYRINGE 1 SYR IV ONE; -MANNITOL 25% 12.5 GM/50 ML VIAL IV ONE; -METOPROLOL TARTRATE 12.5 MG TAB PO ONE; -MUPIROCIN 2% OINT 22 GM TUBE NASAL ONE; -NITROGLYCERIN SL TABS 0.4 MG TAB SUBLINGUAL ONE; -NITROGLYCERIN-D5W PMX 25 MG/250 ML BTL IV ONE; -NITROGLYCERIN-D5W PMX 50 MG in DEXTROSE/WATER 1 250ML.BAG IV ONE; -NOREPINEPHRINE 4 MG in SODIUM CHLORIDE 0.9% 250 ML IV ONE; -PAPAVERINE 360 MG in SODIUM CHLORIDE 0.9% 90 ML IV ONE; -PHENYLEPHRINE 10 MG/ML VIAL IV ONE; -PHENYLEPHRINE 40 MG in SODIUM CHLORIDE 0.9% 250 ML IV ONE; -PROTAMINE SULFATE 10 MG/ML 25 ML VIAL IV ONE; -PROTAMINE SULFATE 250 MG in EMPTY BAG 1 BAG IV ONE; -SODIUM BICARB 8.4% 50 ML SYR (1 MEQ/ML) IV ONE; -SODIUM CHLORIDE 0.9% 1,000 ML IV ONE; -TRANEXAMIC ACID 2,000 MG in SODIUM CHLORIDE 0.9% 80 ML IV ONE; -ceFAZolin 1,000 MG in SODIUM CHLORIDE 0.9% IRRIGATIO 1,000 ML IRRIGATION ONE; -propofoL 1,000 MG/100 ML VIAL IV ONE
[2024-03-05] MEDS: IV FLUID CONTINUATION 1,000 ML IV ONE (08:28)
[2024-03-05 08:35] VITALS: TEMP 97.8
[2024-03-05] MEDS ORDERED: PROPOFOL 10 MG/ML 20 ML VIAL IV ONE (09:05)
[2024-03-05 09:28] VITALS: PULSE 59; RESP 16
[2024-03-05 09:47] VITALS: BP 116/69
--- NOTE | 2024-03-05 13:04 | P.OP ---
Date of Procedure: 03/05/24 Preoperative Diagnosis: Screening Colonoscopy Postoperative Diagnosis: Diverticulosis Procedure(s) Performed: Colonoscopy Anesthesia: other (Sedation) Surgeon: Leodan Juarez Pathology: none sent Condition: stable Disposition: PACU Description of Procedure: After informed consent was obtained, the patient was placed in the left lateral position adequate sedation was given by anesthesia. Monitoring was provided throughout the entire procedure. Digital rectal exam was performed revealing normal sphincter tone and no external hemorrhoids. The colonoscope was inserted into rectum and advanced under direct visualization, without difficulty, to the cecum, the appendiceal orifice, and the ileocecal valve were identified. The quality of the preparation was good. The colonoscope was then withdrawn while carefully examining the mucosa. The colonic mucosa appeared normal with normal vascularity and haustral markings. No masses, polyps, or AVM/s. There were diverticula seen. On retroflexed view in the rectum, there were no internal hemorrhoids. The endoscope was removed and the procedure terminated. The patient tolerated the procedure well without complications.
== END 2024-03-05 10:08 | disposition home or self-care (01) ==
LOC: ORWHC2ENDO 08:07
PROVIDERS: ATTEND Surgery
DX: Z12.11 Encounter for screening for malignant neoplasm of colon (principal); K57.30 Diverticulosis of large intestine without perforation or abscess without bleeding; I10 Essential (primary) hypertension; E78.5 Hyperlipidemia, unspecified; I25.10 Atherosclerotic heart disease of native coronary artery without angina pectoris; M19.90 Unspecified osteoarthritis, unspecified site; K21.9 Gastro-esophageal reflux disease without esophagitis; C61 Malignant neoplasm of prostate; Z79.02 Long term (current) use of antithrombotics/antiplatelets; Z79.82 Long term (current) use of aspirin; Z79.899 Other long term (current) drug therapy
CPT/HCPCS: J2704; G0121

== ENCOUNTER → 2024-06-19 | Day surgery (SDC) | payer MEDICARE ==
--- NOTE | 2024-06-15 11:59 | P.HPIHPCON ---
History of Present Illness H&P Date: 06/15/24 Chief Complaint: Urinary incontinence This is a 74-year-old male with history of prostate cancer treated with prostatectomy at the [facility]. Patient is having urinary incontinence. Underwent an AUS placement back in December 2023. Patient is having difficulty using the pump. Discussed given the difficulty the option of an AUS revision to place the pump in a different location. He is aware of the risk which include but not limited to bleeding, infection, injury to the device. Discussed potential of migration of the pump which might cause difficulty again. He understood all the risk and agreed to proceed Consent for Procedure: I have explained the operation/procedure to the patient, including the risks, benefits, side effects, alternative therapies (including not receiving the proposed treatment or service), the likelihood of the patient achieving his/her goals, and potential recuperation problems for the procedure/sedation/analgesia, as well as any blood products, if indicated. I also explained to the patient the risks, benefits and side effects of the alternatives, as well as the risks related to not receiving the proposed procedure, care, treatment, or services. Past Medical History Past Medical History: Cancer, Hyperlipidemia, Hypertension, Osteoarthritis (OA), Prostate Disorder Additional Past Medical History / Comment(s): DDD /SCIATICA PAIN., PROSTATE CANCER WITH SURGERY. recent shortness of breath with activity. leaking urine History of Any Multi-Drug Resistant Organisms: None Reported Past Surgical History: Orthopedic Surgery, Prostate Surgery Additional Past Surgical History / Comment(s): Prosthetic urinary sphincter, quadruple bypass 2021, bilateral knee replacedments, colonoscopy Past Anesthesia/Blood Transfusion Reactions: No Reported Reaction Additional Past Anesthesia/Blood Transfusion Reaction / Comment(s): no blood transfusion Smoking Status: Current every day smoker - Past Family History Mother Family Medical History: Cancer Additional Family Medical History / Comment(s): COLON CANCER Father Family Medical History: Coronary Artery Disease (CAD), Myocardial Infarction (AL) Medications and Allergies Home Medications Medication Instructions Recorded Confirmed Type Aspirin [Adult Low Dose Aspirin EC] 81 mg PO HS 07/03/20 06/14/24 History Atorvastatin Calcium 40 mg PO DAILY 04/23/22 06/14/24 History Metoprolol Tartrate [Lopressor] 50 mg PO BID #60 tab 05/14/22 06/14/24 Rx Pantoprazole [Protonix] 40 mg PO AC-BRKFST #30 tab 05/14/22 06/14/24 Rx Cinnamon (Unknown Dose) 1 tab PO HS 12/22/23 06/14/24 History D3 Vitamin(Unknown Dose) 1 tab PO HS 12/22/23 06/14/24 History Dextroamphetamine/Amphetamine 30 mg PO DAILY PRN 12/22/23 06/14/24 History [Adderall] Ferrous Sulfate [Feosol] 325 mg PO DAILY 12/22/23 06/14/24 History Losartan Potassium 100 mg PO DAILY 12/22/23 06/14/24 History Magnesium(Unknown Dose) 1 tab PO HS 12/22/23 06/14/24 History Multivitamins, Thera [Multivitamin 1 tab PO DAILY 12/22/23 06/14/24 History (formulary)] amLODIPine [Norvasc] 5 mg PO BID 12/22/23 06/14/24 History hydroCHLOROthiazide [Hydrodiuril] 25 mg PO DAILY 12/22/23 06/14/24 History Nystatin 100,000Unit/gm Cream 1 applic TOPICAL BID PRN 02/17/24 06/14/24 History [Mycostatin Cream] Sildenafil Citrate 50 mg PO Q72H PRN 02/17/24 06/14/24 History Allergies Allergy/AdvReac Type Severity Reaction Status Date / Time No Known Allergies Allergy Verified 06/14/24 14:54 Surgical - Exam - General no distress, no pain - Eyes normal ocular movement, no pale - ENT normal nares, normal mucosa - Respiratory normal expansion, normal respiratory effort - Abdomen Abdomen: soft, non tender Assessment and Plan Assessment: OR for revision of an AUS
[~2024-06-19] MED LIST changes: +HYDROmorphone 0.5 MG/0.5 ML SYRINGE IVP PRN; -LACTATED RINGERS 1,000 ML IV SCH; +LIDOCAINE 1% INJ 10MG/ML (20 ML MDV) ONE; +LIDOCAINE 4% LTA KIT (4 ML) TOPICAL ONE; +PHENYLEPHRINE-0.9% NACL SYG 1,000 MCG/10 ML SYRINGE ONE; +PROPOFOL 10 MG/ML 20 ML VIAL IV ONE; +SUCCINYLCHOLINE CHLORIDE 200 MG/10 ML VIAL IV ONE; +WATER FOR INJECTION, STERILE 10 ML VIAL IV ONE; +ePHEDrine 50 MG/ML 1 ML VIAL ONE; +fentaNYL (PF) 50 MCG/ML 2 ML AMP ONE
[2024-06-19] MEDS: IV FLUID CONTINUATION 1,000 ML IV ONE (06:44)
[2024-06-19] MEDS: VANCOMYCIN 750 MG in SODIUM CHLORIDE 0.9% 250 ML IVPB PRN (07:07)
[2024-06-19] MEDS: ONDANSETRON 4 MG/2 ML VIAL IVP ONE (07:08)
[2024-06-19] MEDS: DEXAMETHASONE SOD PHOSPHATE 4 MG/ML 1 ML VIAL IV ONE (07:08)
[2024-06-19] MEDS: LACTATED RINGERS 1,000 ML IV SCH (07:18)
[2024-06-19] MEDS: SODIUM CHLORIDE 0.9% IVPB PRN (07:39)
[2024-06-19] MEDS: GENTAMICIN IVPB PRN (07:39)
[2024-06-19] MEDS: BUPIVACAINE (PF) 0.5% 30 ML VIAL SQ ONE (08:00)
[2024-06-19 09:04] VITALS: TEMP 98.3
--- NOTE | 2024-06-19 09:20 | P.OP ---
Date of Procedure: 06/19/24 Preoperative Diagnosis: Stress urinary incontinence Postoperative Diagnosis: Same Procedure(s) Performed: Revision of artificial urethral sphincter Implants: None Anesthesia: ROSAS Surgeon: Colin Young Estimated Blood Loss (ml): 10 Pathology: none sent Condition: stable Disposition: PACU Indications for Procedure: This is a 74-year-old male with history of prostate cancer treated with prostatectomy at the [facility]. Patient is having urinary incontinence. Underwent an AUS placement back in December 2023. Patient is having difficulty using the pump. Discussed given the difficulty the option of an AUS revision to place the pump in a different location. He is aware of the risk which include but not limited to bleeding, infection, injury to the device. Discussed potential of migration of the pump which might cause difficulty again. He understood all the risk and agreed to proceed Description of Procedure: Patient brought the operating room, general anesthesia was induced. Was prepped and draped in sterile fashion and placed in supine position. Next the previous scrotal incision was identified and incised using a scalpel. Dartos fascia was dissected down using cautery. At this time the tube was encountered, I dissected the tubing all the way down to the pump, at this point the pump was completely dissected out and was removed out of the scrotal cavity. There was no injury to the tube or the pump. At this time the pump was cycled and it cycled without any difficulties. The space was irrigated using antibiotic irrigation. At this point a new dartos pocket was created along the right hemiscrotum. The previous cavity where the pump was was closed using 3-0 Vicryl. Next the tubing was secured in the location by placing a dartos flap over. At this point the pump was in the most dependent portion of the right hemiscrotum. Next dartos fascia was closed using 3-0 Vicryl, skin was closed using 4-0 Monocryl. Skin glue was applied. At this point the pump was remained in the deactivated position. Patient was awakened from anesthesia and taken to recovery in stable condition
[2024-06-19 10:11] VITALS: RESP 14
[2024-06-19 10:33] VITALS: BP 126/75; PULSE 71
== END ==
LOC: OR 06:01
PROVIDERS: ATTEND Urology
DX: N39.3 Stress incontinence (female) (male) (principal); Z85.46 Personal history of malignant neoplasm of prostate; E78.5 Hyperlipidemia, unspecified; I10 Essential (primary) hypertension; F17.200 Nicotine dependence, unspecified, uncomplicated; Z79.82 Long term (current) use of aspirin
CPT/HCPCS: 53449; J3370; J0330; J1100; J2405; J2003; J3010; J1580; J2704; J2371